=== PATIENT | female | born 2000 | race Caucasian/White ===

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

== ENCOUNTER 2022-02-09 19:55 | Emergency (ER) | payer BC, MEDICAID, SELFPAY ==
[2022-02-09 20:01] VITALS: BP 125/72; PULSE 100; RESP 14; TEMP 37; O2SAT 98; BMI 35.9
--- NOTE | 2022-02-09 20:20 | USR_ITS ---
PROCEDURE INFORMATION: Exam: US Pelvis, Transvaginal Exam date and time: 02/09/2022 9:16 PM Age: 21 years old Clinical indication: Menstruation abnormalities; Excessive menstruation; With irregular cycle; Additional info: Possible miscarriage TECHNIQUE: Imaging protocol: Real-time transvaginal pelvic ultrasound with image documentation. Transvaginal imaging was used for better evaluation of the endometrium, adnexa, and/or cervix. COMPARISON: CT abdomen pelvis w con* [id number] 08/08/2020 2:11 AM FINDINGS: Uterus: Uterus is normal. Endometrial stripe is normal measuring 2.9 mm. Right ovary/adnexa: Several subcentimeter right ovarian follicles. Normal ovarian blood flow. Left ovary/adnexa: Several left ovarian follicular cysts measuring up to 10 mm. Normal ovarian blood flow. Intraperitoneal space: Minimal free fluid in the pelvis, nonspecific. US/US pelvic with transvaginal IMPRESSION: 1. Bilateral ovarian follicles. 2. Minimal free fluid in the pelvis, nonspecific.
[2022-02-09 21:18] LABS: Basophils % 0.3 %; Eosinophils # 0.2 10^3/uL (0.0-0.8); Eosinophils % 1.3 %; Hematocrit 35.5 % (37.0-47.0); Hemoglobin 10.8 g/dL (11.5-15.3); Lymphocytes # 3.5 10^3/uL (1.5-6.5); Lymphocytes % 24.8 %; Mean Corpuscular HGB Conc 30.4 g/dL (30.0-36.0); Mean Corpuscular Hemoglobin 19.4 pg (28.0-34.0); Mean Corpuscular Volume 63.8 fl (81-99); Monocytes # 0.7 10^3/uL (0.2-0.9); Monocytes % 5.1 %; Neutrophils # 9.52 10^3/uL (1.8-8.0); Neutrophils % 67.8 %; Nucleated Red Blood Cells % 0 %; Platelet Count 211 10^3/cmm (130-400); Red Blood Count 5.56 10^6/uL (4.1-5.3); Red Cell Distribution Width 17.2 % (12.1-15.1); White Blood Count 14.1 10^3/uL (4.5-13.0)
[2022-02-09 21:44] LABS: Mean Platelet Volume 11.3 fL (7.4-10.4); Slide Review Slide Review Perform
[2022-02-09 21:45] LABS: HCG, Serum Qual Negative (Negative)
[2022-02-09 21:51] LABS: Alanine Aminotransferase 30 U/L (0-33); Albumin Level 4.6 g/dL (3.5-5.2); Alkaline Phosphatase 127 IU/L (35-105); Aspartate Amino Transferase 24 U/L (0-32); Blood Urea Nitrogen 13 mg/dL (6-20); Calcium 9.7 mg/dL (8.5-10.5); Carbon Dioxide 24 mmol/L (22-29); Chloride 102 mmol/L (98-107); Creatinine Clr Calc Pharmacy 150.3543; Globulin 3.2 g/dL (1.3-4.6); Glomerular Filtration Rate 128.8 mL/min (90-130); Glucose 95 mg/dL (65-115); Lipase 31 U/L (13-60); Osmolality Calculated 284 mOsm/kg (285-295); Sodium 137 mmol/L (136-145); Total Bilirubin 0.4 mg/dL (0.15-1.2); Total Protein 7.8 g/dL (6.6-8.7)
--- NOTE | 2022-02-09 23:02 | W.ED.FEMALGU ---
HPI - Female Genitourinary General: Chief complaint: Vaginal Bleeding Stated complaint: Possible Miscarriage Time Seen by Provider: 02/09/22 23:02 History of Present Illness: Mr Khan is a 21-year-old female who presents to the emergency department due to abnormal uterine bleeding, passing clots associated with concern of , and abdominal discomfort. She endorses symptom onset a few days ago starting with approximately normal period amount of bleeding but more intense abdominal discomfort than typical. What brought her to the ER today is bright red blood clot that she passed earlier today. This is not typical of her previous periods. Her last menstrual period November has had multiple negative home test. Typically her periods are regular and she has not had irregular periods like this in the past. Lower abdominal discomfort is cramping in quality and variable in intensity but currently mild to moderate. She denies associated lightheadedness, dizziness, chest pain, shortness of breath. No history of bleeding disorders or clotting disorders. She reports that she had a pelvic exam and found to have yeast infection and [facility] in [place] approximately 1 week ago, treated with resolution of symptoms, no vaginal pain or discharge associated with current symptoms. Onset (ago): day(s) Location of symptoms: LLQ, RLQ and low back Severity: moderate Quality of pain: cramping Consistency: intermittent Vaginal discharge: none Vaginal bleeding: moderate and clots Sexual activity: Yes Possible : unsure if Review of Systems General: Reports: 10 or more systems reviewed and unremarkable except in HPI and below PFSH ED PFSH: Medical History ADHD (attention deficit hyperactivity disorder) Asthma GERD (gastroesophageal reflux disease) Psychiatric care Surgical History Hx of tonsillectomy Status post laparoscopic cholecystectomy (03/15/20) Family History Family/Other Diabetes Great Grandmother Grandmother Thyroid disease Maternal and Paternal Denies family history of Colon cancer Ovarian cancer Heart disease Hypercholesteremia Breast cancer Bleeding disorder Hypertension Uterine cancer Stroke Social History Smoking and tobacco status: current every day smoker e-cigarettes E-Cigarette Details: vaporizer device and with nicotine E-cig/vape details: One pod/ 1 - 2 months Quit status (tobacco): has tried quititng Number of times tried to quit tobacco: 1 Second hand smoke exposure: Yes Additional social history: .- Tobacco use: currently smokes 3 cigarettes per day Alcohol use: socially Drug use: Marijuana-- last smoked 08/2020 Physical Exam Const: COMMON NORMALS: alert GENERAL APPEARANCE: cooperative and well developed HENMT: COMMON NORMALS: normocephalic and atraumatic HEAD & SCALP: normocephalic and atraumatic Eye: COMMON NORMALS: conjunctivae normal CONJUNCTIVA: Yes conjunctivae normal SCLERA: sclerae normal Neck/C-Spine: COMMON NORMALS: supple GENERAL: Yes trachea midline Resp: COMMON NORMALS: clear to auscultation bilaterally EFFORT & INSPECTION: Yes able to speak in complete sentences AUSCULTATION: clear to auscultation bilaterally Cardio: COMMON NORMALS: regular rate and regular rhythm RATE: regular rate RHYTHM: regular rhythm GI: COMMON NORMALS: Soft to palpation PALPATION: Yes Soft to palpation, Yes Tenderness to palpation present (GI) Details: LLQ and RLQ, No Guarding due to palpation present (GI) and No Rigid due to palpation PERCUSSION: normal to percussion Extremity: GENERAL: Yes normal exam except as noted and No edema Neuro: COMMON NORMALS: moves all extremities SENSORIUM/ORIENTATION: Yes alert and No Orientation impaired Psych: COMMON NORMALS: mental status grossly normal and Normal thought process present THOUGHT PROCESS: Normal thought process present Course ED course: - Patient was seen and evaluated by me at bedside - Patient placed on cardiac monitors, IV access obtained - Initial evaluation notable for exam as above, mildly anxious - Labs personally interpreted by me - Toradol and Tylenol ordered for symptom - Labs notable for leukocytosis, microcytic anemia. No acute electrolyte derangement. Urinalysis with blood likely contamination without other evidence of urinary tract infection. hCG negative. - Imaging notable for bilateral ovarian follicles and nonspecific minimal free fluid in pelvis - Upon serial reexamination after treatment the patient was similar - Based on patient history, evaluation, and testing as interpreted the most likely cause of the patient's condition is dysfunctional uterine bleeding of uncertain etiology. - The etiology of the patient's leukocytosis and abdominal discomfort is less clear. I did offer CT scan and pelvic exam which the patient declined. She expressed desire to leave as she has to take her niece, who is with her, home. - The results of ED evaluation were discussed with the patient including prescriptions and/or symptomatic cares (if applicable) including appropriate and responsible use, followup plan, and return precautions. The patient verbalized understanding and felt safe for discharge. - Patient discharged in satisfactory condition. Note: Click bubbles or prepopulated downs in note writing are used for assistance with data collection and billing and are inherently more limited than narrative and other text portions of this note. Please use narrative for additional clinical history and defer to narrative/free test for any case of contradictory information. If information appears in only free text or click bubble it should be considered present or absent as reported. Please contact note senior technical writer for clarifications of clinical information or contradictory information. MDM is a brief summary, contradictory or erroneous seeming information should be clarified and full note should be reviewed. Vital Signs: Vital signs: Vital Signs Temperature 98.6 F 02/09/22 20:01 Pulse Rate 82 02/10/22 00:00 Respiratory Rate 17 02/10/22 00:00 Blood Pressure 140/75 02/10/22 00:00 Pulse Oximetry 95 02/10/22 00:00 MDM - Female Medical Decision Making 21-year-old female presenting with abnormal uterine bleeding with concern for . Negative test here. Ultrasound without acute abnormality to explain dysfunctional uterine bleeding. Offered pelvic exam and CT scan which the patient declined. Satisfactory for outpatient management. Medical Records I reviewed the patient's medical records. Lab Data I reviewed the patient's lab results. : 02/09/22 21:08 02/09/22 21:08 Radiology Impressions Pelvic/Transvag US 02/09/22 20:20 IMPRESSION: 1. Bilateral ovarian follicles. 2. Minimal free fluid in the pelvis, nonspecific. Laboratory Results WBC 14.1 10^3/uL (4.5-13.0) H 02/09/22 21:08 RBC 5.56 10^6/uL (4.1-5.3) H 02/09/22 21:08 Hgb 10.8 g/dL (11.5-15.3) L 02/09/22 21:08 Hct 35.5 % (37.0-47.0) L 02/09/22 21:08 MCV 63.8 fl (81-99) L 02/09/22 21:08 MCH 19.4 pg (28.0-34.0) L 02/09/22 21:08 MCHC 30.4 g/dL (30.0-36.0) 02/09/22 21:08 RDW 17.2 % (12.1-15.1) H 02/09/22 21:08 Plt Count 211 10^3/cmm (130-400) 02/09/22 21:08 MPV 11.3 fL (7.4-10.4) H 02/09/22 21:08 Neut % (Auto) 67.8 % 02/09/22 21:08 Lymph % (Auto) 24.8 % 02/09/22 21:08 [place] % (Auto) 5.1 % 02/09/22 21:08 Eos % (Auto) 1.3 % 02/09/22 21:08 Baso % (Auto) 0.3 % 02/09/22 21:08 Neut # (Auto) 9.52 10^3/uL (1.8-8.0) H 02/09/22 21:08 Lymph # (Auto) 3.5 10^3/uL (1.5-6.5) 02/09/22 21:08 [place] # (Auto) 0.7 10^3/uL (0.2-0.9) 02/09/22 21:08 Eos # (Auto) 0.2 10^3/uL (0.0-0.8) 02/09/22 21:08 Baso # (Auto) 0.0 10^3/uL (0.0-0.1) 02/09/22 21:08 Nucleated RBC % (auto) 0 % 02/09/22 21:08 Nucleated RBCs # 0.0 /100WBC 02/09/22 21:08 Sodium 137 mmol/L (136-145) 02/09/22 21:08 Potassium 4.0 mmol/L (3.5-5.1) 02/09/22 21:08 Chloride 102 mmol/L (98-107) 02/09/22 21:08 Carbon Dioxide 24 mmol/L (22-29) 02/09/22 21:08 Anion Gap 15.0 (5-19) 02/09/22 21:08 BUN 13 mg/dL (6-20) 02/09/22 21:08 Creatinine 0.6 mg/dL (0.5-0.9) 02/09/22 21:08 GFR Calculation 128.8 mL/min (90-130) 02/09/22 21:08 Glucose 95 mg/dL (65-115) 02/09/22 21:08 Calculated Osmolality 284 mOsm/kg (285-295) L 02/09/22 21:08 Calcium 9.7 mg/dL (8.5-10.5) 02/09/22 21:08 Total Bilirubin 0.4 mg/dL (0.15-1.2) 02/09/22 21:08 AST 24 U/L (0-32) 02/09/22 21:08 ALT 30 U/L (0-33) 02/09/22 21:08 Alkaline Phosphatase 127 IU/L (35-105) H 02/09/22 21:08 Total Protein 7.8 g/dL (6.6-8.7) 02/09/22 21:08 Albumin 4.6 g/dL (3.5-5.2) 02/09/22 21:08 Globulin 3.2 g/dL (1.3-4.6) 02/09/22 21:08 Lipase 31 U/L (13-60) 02/09/22 21:08 HCG, Qual Negative (Negative) 02/09/22 21:08 Urine Color Yellow (Yellow) 02/09/22 23:24 Urine Appearance Hazy (CLEAR) A 02/09/22 23:24 Urine pH 8 (5-7) H 02/09/22 23:24 Ur Specific [place] 1.005 (1.005-1.030) 02/09/22 23:24 Urine Protein Neg (Negative) 02/09/22 23:24 Urine Glucose (UA) Norm (Normal) 02/09/22 23:24 Urine Ketones Negative (Negative) 02/09/22 23:24 Urine Blood 3+ (Negative) H 02/09/22 23:24 Urine Nitrate Negative (Negative) 02/09/22 23:24 Urine Bilirubin Neg (Negative) 02/09/22 23:24 Prot Sulfosalicylic Acd Negative (Negative) 02/09/22 23:24 Urine Urobilinogen Norm mg/dL (Negative) 02/09/22 23:24 Ur Leukocyte Esterase Negative (Negative) 02/09/22 23:24 Urine RBC 5-10 /hpf (0-2) H 02/09/22 23:24 Urine WBC 5-10 /hpf (0-5) H 02/09/22 23:24 Ur Squamous Epith Cells 0-4 /hpf (0-5) H 02/09/22 23:24 Amorphous Sediment 3+ /hpf 02/09/22 23:24 Urine Bacteria Trace /hpf (NONE) 02/09/22 23:24 Discharge Plan Discharge Patient Disposition: Home Clinical Impression: Dysfunctional uterine bleeding, Microcytic anemia, Leukocytosis Condition: Stable Prescriptions: No Action albuterol sulfate 90 mcg/actuation HFA aerosol inhaler 2 puff INHALATION Q6H PRN (Reason: Shortness Of Breath) 0RF duloxetine 60 mg capsule,delayed release(DR/EC) 60 mg PO DAILY Qty: 30 2RF trazodone 50 mg tablet 100 mg PO .HS PRN (Reason: insomnia) Qty: 60 1RF Discharge Orders: Discharge ED (Routine); Ordered 02/10/22 Ordered By: Kailash Pinto Discharge Diet: Usual diet Discharge Activity: Resume usual activity Patient Instructions: Abnormal (Dysfunctional) Uterine Bleeding (ED), Leukocytosis (ED), Anemia (ED) Activity Restrictions/Additional Instructions: Thank you for visiting the emergency department. You were seen and evaluated for abnormal vaginal bleeding. The exact cause of your symptoms is unclear. Your test was negative. You do have microcytic anemia which is most often caused by iron deficiency however this appears similar to prior lab values. Additionally you have a elevated white blood cell count of uncertain cause. You declined CT in the emergency department. As such I am unable to rule out other conditions as cause of your abdominal pain. Please follow-up with your primary care provider and have repeat labs done. Please establish with a primary care provider if you do not currently have 1. I will message case management for referral to [facility]. Please return to the emergency department for worsening symptoms or anything else that you are concerned about and feel needs emergency department evaluation. Coding Level of Care Code ED Client Customer Manager for Rachel Shannon
[2022-02-09 23:05] VITALS: BP 143/61; PULSE 83; RESP 16; O2SAT 96
--- NOTE | 2022-02-09 23:10 | PC.NURSE ---
IV started in triage
[2022-02-09 23:15] VITALS: BP 122/66; PULSE 79; RESP 16; O2SAT 96
[2022-02-09 23:30] VITALS: BP 132/62; PULSE 80; RESP 17; O2SAT 96
[2022-02-09] MEDS: acetaminophen 500 mg Tablet 1000 MG PO (23:38)
[2022-02-09] MEDS: ketorolac 30 mg/mL INJ 15 MG IVP (23:40)
[2022-02-09 23:47] LABS: Add Urine Microscopic? YES; Bacteria Urine TRACE /hpf; Bilirubin Urine Neg (Negative); Blood Urine 3+ (Negative); Glucose Urine UA Norm (Normal); Ketones Urine Negative (Negative); Leukocyte Esterase Urine Negative (Negative); Nitrate Urine Negative (Negative); Protein Urine Neg (Negative); Specific Gravity, Urine 1.005 (1.005-1.030); Squamous Epithelial Cell Urine 0-4 /hpf (0-5); Sulfosalicylic Acid Urine Negative (Negative); Urine Appearance Hazy (CLEAR); Urine Color Yellow (Yellow); Urobilinogen Urine Norm (Negative); pH Urine 8 (5-7)
[2022-02-09 23:48] LABS: Add Urine Culture? No; Amorphous Sediment Urine 3+ /hpf
[2022-02-10] VITALS: BP 140/75; PULSE 82; RESP 17; O2SAT 95
--- NOTE | 2022-02-10 13:29 | DCPLANNER ---
Addendum entered by Octavia Shay 02/22/22 09:49: Patient had a follow up appointment scheduled with [facility] - appointment was rescheduled. Addendum entered by Octavia Shay 02/15/22 07:56: Patient has a follow up appointment scheduled for Tuesday February 15, 2022 at 2:[address] Cadena at [facility]. Clinic will call patient with appointment information. Original Note: fitness and wellness manager had message to schedule a follow up appointment for patient with [facility]. fitness and wellness manager sent patients information to the front staff at [facility]. Patients information will be printed and reviewed. Clinic will call patient with appointment information.
== END 2022-02-10 | disposition home or self-care (01) ==
PROVIDERS: Emergency Medicine; Emergency Provider Emergency Medicine
DX: N93.9 Abnormal uterine and vaginal bleeding, unspecified (principal); D50.9 Iron deficiency anemia, unspecified; D72.829 Elevated white blood cell count, unspecified; F17.290 Nicotine dependence, other tobacco product, uncomplicated
CPT/HCPCS: 76830; 76856; 80053; 81001; 83690; 84703; 85025; 96374; 99284; J1885

== ENCOUNTER 2023-05-02 01:49 | Outpatient (CLI) | payer BC, SELFPAY ==
[2023-05-02 01:50] VITALS: BMI 44.1
[2023-05-02 01:57] VITALS: BP 140/63; PULSE 101
[2023-05-02 02:19] LABS: Bacteria Urine 1+ /hpf; Bilirubin Urine Neg (Negative); Blood Urine Neg (Negative); Glucose Urine UA Norm (Normal); Ketones Urine 1+ (Negative); Leukocyte Esterase Urine Trace (Negative); Mucus Urine 2+ /hpf; Nitrate Urine Negative (Negative); Protein Urine Neg (Negative); Specific Gravity, Urine 1.025 (1.005-1.030); Urine Appearance Cloudy (CLEAR); Urine Color Yellow (Yellow); Urobilinogen Urine 1 mg/dL (Negative); WBC Urine 0-4 /hpf (0-5); pH Urine 6 (5-7)
[2023-05-02 02:20] LABS: Add Urine Culture? No; Amorphous Sediment Urine 1+ /hpf
[2023-05-02 02:32] VITALS: BP 140/63; PULSE 101; RESP 17; TEMP 36.4
== END 2023-05-02 02:35 | disposition home or self-care (01) ==
LOC: OPOB 01:49 → OBGYN 01:50
PROVIDERS: Visit Provider Family Medicine
DX: O26.899 Other specified pregnancy related conditions, unspecified trimester (principal); R10.9 Unspecified abdominal pain; Z3A.00 Weeks of gestation of pregnancy not specified
CPT/HCPCS: 59025; 81001; 99211

== ENCOUNTER 2023-05-25 13:35 | Outpatient (CLI) | payer BC, SELFPAY ==
[2023-05-25 13:35] VITALS: BMI 44.7
--- NOTE | 2023-05-25 13:49 | US_ITS ---
WS: [id number] BIOPHYSICAL PROFILE AND LIMITED OB. HISTORY: NST and BPP for GHTN and hyperglycemia COMPARISON: 02/15/2023 Presentation: Vertex. Cervix: Not visualized Placenta: Posterior and fundal. Distal extent is not imaged. Grade: 1 HEART: FHR of 160BPM. measurements: BPD = 8.3 cm = 33w2d; 19th percentile HC = 30.7 cm = 34w2d; not calculated. AC = 30.0 cm = 34w0d; 44th percentile FL = 6.7 cm = 34w2d; 41st percentile GUILLERMO: 14.8 centimeters EFW: 2323g; not calculated. AGA by ultrasound: 34w0d ADALGISA by ultrasound: 07/06/2023 Measurements are internally concordant. Appropriate growth since the first trimester ultrasound. Biophysical profile: Parameters are as follows: Breathin Movement: 2 Tone: 2 Fluid volume: 2 Single vertical pocket of amniotic fluid 4.7 cm. US/US OB BPP wo NST 12981 IMPRESSION: 1. Biophysical profile score: 6/8. No breathing identified. 2. Single intrauterine gestation of 34w0d with an 07/06/2023. Appropriate growt h since the first trimester ultrasound.
[2023-05-25 13:57] VITALS: BP 129/73; PULSE 101
[2023-05-25 14:17] VITALS: BP 126/61; PULSE 104
== END 2023-05-25 16:17 | disposition home or self-care (01) ==
LOC: OPOB 13:44 → OBGYN 05-30 07:36
PROVIDERS: Visit Provider Family Medicine
DX: O13.9 Gestational [pregnancy-induced] hypertension without significant proteinuria, unspecified trimester (principal); O26.899 Other specified pregnancy related conditions, unspecified trimester; R73.9 Hyperglycemia, unspecified; Z3A.34 34 weeks gestation of pregnancy
CPT/HCPCS: 59025; 76819

== ENCOUNTER 2023-05-30 21:45 | Outpatient (CLI) | payer BC, SELFPAY ==
[2023-05-30 22:06] VITALS: RESP 17
[2023-05-30 22:07] VITALS: BMI 44.9
[2023-05-30 22:21] VITALS: BP 122/56; PULSE 100
[2023-05-30 22:37] VITALS: BP 108/78; PULSE 97
== END 2023-05-30 22:43 | disposition home or self-care (01) ==
LOC: OPOB 21:53 → OBGYN 22:00
PROVIDERS: Visit Provider Family Medicine
DX: O16.9 Unspecified maternal hypertension, unspecified trimester (principal); O26.899 Other specified pregnancy related conditions, unspecified trimester; R10.9 Unspecified abdominal pain; Z3A.00 Weeks of gestation of pregnancy not specified
CPT/HCPCS: 59025; 99211

== ENCOUNTER 2023-06-01 11:10 | Outpatient (CLI) | payer BC, SELFPAY ==
[2023-06-01 11:19] VITALS: BP 122/72; PULSE 110
--- NOTE | 2023-06-01 11:22 | US_ITS ---
WS: [id number] BIOPHYSICAL PROFILE AMNIOTIC FLUID HISTORY: GHTN COMPARISON: None available. position: Vertex. Cardiac activity: 157 bpm. Cervix: closed. Placenta: Posterior, no previa or abruption. Placenta grade: 1 Parameters are as follows: Breathin Movement: 2 Tone: 2 Fluid volume: 2 Amniotic Fluid Index: 12.8 cm; single deep vertical pocket 4.6 cm. US/US OB BPP wo NST 75818 IMPRESSION: 1. Biophysical profile score: 8/8. 2. Normal amniotic fluid.
[2023-06-01 11:24] VITALS: BMI 44.9
== END 2023-06-01 12:35 | disposition home or self-care (01) ==
LOC: OPOB 11:11 → OBGYN 11:12
PROVIDERS: Visit Provider Family Medicine
DX: O24.419 Gestational diabetes mellitus in pregnancy, unspecified control (principal); Z3A.00 Weeks of gestation of pregnancy not specified
CPT/HCPCS: 59025; 76819

== ENCOUNTER 2023-06-03 19:30 | Outpatient (CLI) | payer BC, SELFPAY ==
[2023-06-03] VITALS (34 sets, daily range): BP systolic 109–149; BP diastolic 53–86; PULSE 93–117; RESP 16; TEMP 35.9; O2SAT 96–99; BMI 45.3
[2023-06-03 20:05] LABS: Nitrazine Paper, PH Negative
[2023-06-03 20:39] LABS: Basophils % 0.2 %; Eosinophils # 0.1 10^3/uL (0.0-0.8); Eosinophils % 0.8 %; Hematocrit 29.3 % (37.0-47.0); Hemoglobin 8.9 g/dL (11.5-15.3); Lymphocytes # 3.2 10^3/uL (1.5-6.5); Lymphocytes % 20.2 %; Mean Corpuscular HGB Conc 30.4 g/dL (30.0-36.0); Mean Corpuscular Hemoglobin 19.3 pg (28.0-34.0); Mean Corpuscular Volume 63.7 fl (81-99); Mean Platelet Volume 11.5 fL (7.4-10.4); Monocytes # 1.2 10^3/uL (0.2-0.9); Monocytes % 7.4 %; Neutrophils # 11.17 10^3/uL (1.8-8.0); Neutrophils % 70.1 %; Nucleated Red Blood Cells % 0.1 %; Platelet Count 305 10^3/cmm (130-400); Red Cell Distribution Width 16.7 % (12.1-15.1); White Blood Count 15.9 10^3/uL (4.5-13.0)
[2023-06-03] MEDS: acetaminophen 500 mg Tablet 1000 MG PO (20:43)
[2023-06-03 20:48] LABS: Add Urine Microscopic? YES; Bilirubin Urine Neg (Negative); Blood Urine Neg (Negative); Glucose Urine UA Norm (Normal); Ketones Urine 1+ (Negative); Leukocyte Esterase Urine 1+ (Negative); Nitrate Urine Negative (Negative); Protein Urine Trace (Negative); Specific Gravity, Urine 1.025 (1.005-1.030); Urine Appearance Hazy (CLEAR); Urine Color Yellow (Yellow); Urobilinogen Urine 1 mg/dL (Negative); pH Urine 6 (5-7)
[2023-06-03 20:49] LABS: RBC Urine 0-4 /hpf (0-2)
[2023-06-03 20:52] LABS: Bacteria Urine 2+ /hpf; Mucus Urine TRACE /hpf
[2023-06-03 20:53] LABS: Add Urine Culture? No; Hyaline Casts Urine 0-4 /lpf
[2023-06-03 21:02] LABS: Urine Creatinine 179 mg/dL (28-217); Urine Protein Random 17 mg/dL
[2023-06-03 21:06] LABS: UPRO/UCREAT Ratio 0.09 mg/mg CR
[2023-06-03 21:07] LABS: Alanine Aminotransferase 10 U/L (0-33); Albumin Level 3.1 g/dL (3.5-5.2); Alkaline Phosphatase 212 U/L (35-105); Aspartate Amino Transferase 15 U/L (0-32); Blood Urea Nitrogen 7 mg/dL (6-20); Calcium 9.1 mg/dL (8.5-10.5); Carbon Dioxide 22 mmol/L (22-29); Chloride 103 mmol/L (98-107); Globulin 2.9 g/dL (1.3-4.6); Glomerular Filtration Rate 203.5 mL/min (90-130); Glucose 89 mg/dL (65-115); Osmolality Calculated 279 mOsm/kg (285-295); Sodium 136 mmol/L (136-145); Total Bilirubin 0.2 mg/dL (0.15-1.2); Uric Acid 2.6 mg/dL (2.4-5.7)
[2023-06-04 09:25] LABS: Glucose Point of Care 92 mg/dL (70-110)
== END 2023-06-03 22:02 | disposition home or self-care (01) ==
LOC: OPOB 19:31 → OBGYN 19:32
PROVIDERS: Visit Provider Family Medicine
DX: O47.9 False labor, unspecified (principal); Z3A.00 Weeks of gestation of pregnancy not specified; O26.899 Other specified pregnancy related conditions, unspecified trimester; N89.8 Other specified noninflammatory disorders of vagina
CPT/HCPCS: 36415; 36416; 59025; 80053; 81001; 82570; 82962; 83986; 84156; 84550; 85025; 99211

== ENCOUNTER 2023-06-08 09:27 | Outpatient (CLI) | payer BC, SELFPAY ==
[2023-06-08 09:25] VITALS: BMI 45.5
[2023-06-08 09:32] VITALS: BP 135/70; PULSE 125
--- NOTE | 2023-06-08 09:34 | US_ITS ---
WS: [id number] BIOPHYSICAL PROFILE AND LIMITED OB. HISTORY: Gestational diabetes and hypertension. COMPARISON: 02/15/2023, 06/01/2023 Presentation: Vertex. Cervix: Not visualized. Placenta: Posterior, no previa or abruption. Grade: 1 HEART: Heart rate was not obtained measurements: BPD = 8.5 cm = 34w0d; 8th percentile HC = 32.4 cm = 36w5d; 30th percentile AC = 32.7 cm = 36w4d; 81st percentile FL = 6.6 cm = 34w1d; 5th percentile GUILLERMO: 19.4cm EFW: 2747g; 53rd percentile AGA by ultrasound: 35w3d ADALGISA by ultrasound: 07/10/2023 BPD is at the 8th percentile for gestational age. Head circumference is normal. The 8th percentile ma y be secondary to difficulty obtaining an accurate BPD due to late gestation. Biophysical profile: Parameters are as follows: Breathin Movement: 2 Tone: 2 Fluid volume: 2 IMPRESSION: 1. Biophysical profile score: 8/8. 2. Single intrauterine gestation of 35w3d with an EDC of 07/10/2023. Appropriate growth since study ul trasound of 02/15/2023. 3. No heart rate was obtained by the sheet rock finisher during this examination.
== END 2023-06-08 10:40 | disposition home or self-care (01) ==
LOC: OPOB 09:28 → OBGYN 09:28
PROVIDERS: Visit Provider Family Medicine
DX: O24.419 Gestational diabetes mellitus in pregnancy, unspecified control (principal); O13.9 Gestational [pregnancy-induced] hypertension without significant proteinuria, unspecified trimester; Z3A.35 35 weeks gestation of pregnancy
CPT/HCPCS: 59025; 76819; 99211

== ENCOUNTER 2023-06-09 22:46 | Outpatient (CLI) | payer BC, SELFPAY ==
[2023-06-09 22:52] VITALS: TEMP 36.9
[2023-06-09 22:58] VITALS: BP 130/64; PULSE 101
[2023-06-09 23:12] VITALS: BMI 45.9
[2023-06-09 23:13] VITALS: BP 128/61; PULSE 96
[2023-06-09 23:22] VITALS: RESP 16
[2023-06-09 23:29] VITALS: BP 121/59; PULSE 98
[2023-06-09 23:34] LABS: Bilirubin Urine Neg (Negative); Blood Urine Neg (Negative); Glucose Urine UA Norm (Normal); Ketones Urine Negative (Negative); Leukocyte Esterase Urine 1+ (Negative); Nitrate Urine Negative (Negative); Protein Urine Neg (Negative); Specific Gravity, Urine 1.015 (1.005-1.030); Urine Appearance Hazy (CLEAR); Urine Color Yellow (Yellow); Urobilinogen Urine Norm (Negative); pH Urine 7 (5-7)
[2023-06-09 23:40] LABS: RBC Urine RARE /hpf (0-2); WBC Urine 0-4 /hpf (0-5)
[2023-06-09 23:41] LABS: Add Urine Culture? No; Bacteria Urine 1+ /hpf; Mucus Urine TRACE /hpf
[2023-06-09 23:43] VITALS: BP 126/63; PULSE 100
[2023-06-09 23:43] LABS: Actim Prom Negative
== END 2023-06-09 23:59 | disposition home or self-care (01) ==
LOC: OPOB 22:47 → OBGYN 22:48
PROVIDERS: Visit Provider Family Medicine
DX: O47.9 False labor, unspecified (principal); O26.899 Other specified pregnancy related conditions, unspecified trimester; N89.8 Other specified noninflammatory disorders of vagina; Z3A.00 Weeks of gestation of pregnancy not specified
CPT/HCPCS: 59025; 81001; 83986; 84112; 99211

== ENCOUNTER 2023-06-10 18:36 | Outpatient (CLI) | payer BC, SELFPAY ==
[2023-06-10] VITALS (11 sets, daily range): BP systolic 133–151; BP diastolic 60–70; PULSE 104–129; RESP 16; TEMP 36.9; O2SAT 98–100; BMI 45.5
== END 2023-06-10 19:42 | disposition home or self-care (01) ==
LOC: OPOB 18:45 → OBGYN 18:46
PROVIDERS: Visit Provider Family Medicine
DX: O26.899 Other specified pregnancy related conditions, unspecified trimester (principal); R50.9 Fever, unspecified; N89.8 Other specified noninflammatory disorders of vagina; Z3A.00 Weeks of gestation of pregnancy not specified
CPT/HCPCS: 59025; 99211

== ENCOUNTER 2023-06-13 22:25 | Outpatient (CLI) | payer BC, SELFPAY ==
[2023-06-13] VITALS (7 sets, daily range): BP systolic 128–145; BP diastolic 60–79; PULSE 93–104; RESP 16; BMI 27.2
[2023-06-13 22:59] LABS: Actim Prom Negative
[2023-06-13 23:14] LABS: Nitrazine Paper, PH Negative
[2023-06-13 23:50] LABS: Bilirubin Urine Neg (Negative); Blood Urine Neg (Negative); Glucose Urine UA Norm (Normal); Ketones Urine 1+ (Negative); Leukocyte Esterase Urine Negative (Negative); Nitrate Urine Negative (Negative); Protein Urine Neg (Negative); Specific Gravity, Urine 1.015 (1.005-1.030); Urine Appearance Clear (CLEAR); Urine Color Light yellow (Yellow); Urobilinogen Urine Neg (Negative); pH Urine 5 (5-7)
[2023-06-13 23:51] LABS: Add Urine Culture? No; Bacteria Urine TRACE /hpf; WBC Urine 0-4 /hpf (0-5)
[2023-06-14 00:06] VITALS: BP 127/66; PULSE 105
[2023-06-14 00:23] VITALS: BP 131/58; PULSE 96
[2023-06-14 00:35] VITALS: BP 134/71; PULSE 108
[2023-06-14 00:51] VITALS: BP 124/64; PULSE 99
--- NOTE | 2023-06-14 01:13 | PC.NURSE ---
When patient educated on signs of labor and when to return to L&D, discharge instructions, patient stated I already know all of that! I come here all the time! nurse continued to educate patient, Patient signed discharge papers.
== END 2023-06-14 01:10 | disposition home or self-care (01) ==
LOC: OPOB 22:26 → OBGYN 22:31
PROVIDERS: Visit Provider Family Medicine
DX: O26.899 Other specified pregnancy related conditions, unspecified trimester (principal); R10.9 Unspecified abdominal pain; N89.8 Other specified noninflammatory disorders of vagina; Z3A.00 Weeks of gestation of pregnancy not specified
CPT/HCPCS: 59025; 81001; 83986; 84112; 99211

== ENCOUNTER 2023-06-14 08:41 | Outpatient (CLI) | payer BC, SELFPAY ==
[2023-06-14 08:41] VITALS: RESP 18; BMI 46.0
[2023-06-14 08:52] VITALS: BP 140/76; PULSE 104
[2023-06-14 09:28] VITALS: BP 135/88; PULSE 88
[2023-06-14 09:36] VITALS: BP 135/88; PULSE 88
== END 2023-06-14 09:36 | disposition home or self-care (01) ==
LOC: OPOB 08:45 → OBGYN 08:46
PROVIDERS: Visit Provider Family Medicine
DX: O47.9 False labor, unspecified (principal); Z3A.00 Weeks of gestation of pregnancy not specified
CPT/HCPCS: 59025; 99211

== ENCOUNTER 2023-06-14 21:52 | Outpatient (CLI) | payer BC, SELFPAY ==
[2023-06-14 22:00] VITALS: BMI 46.5
[2023-06-14 22:08] VITALS: BP 116/69; PULSE 101
[2023-06-14 22:23] VITALS: BP 117/54; PULSE 93
[2023-06-14 22:24] VITALS: BP 127/58; PULSE 94
[2023-06-14 22:38] VITALS: BP 122/57; PULSE 96
[2023-06-14 22:54] VITALS: BP 126/61; PULSE 100
[2023-06-14 23:08] VITALS: BP 131/63; PULSE 91
== END 2023-06-14 23:23 | disposition home or self-care (01) ==
LOC: OPOB 21:52 → OBGYN 21:56
PROVIDERS: Visit Provider Family Medicine
DX: O26.899 Other specified pregnancy related conditions, unspecified trimester (principal); Z3A.00 Weeks of gestation of pregnancy not specified; R42 Dizziness and giddiness; R51.9 Headache, unspecified
CPT/HCPCS: 59025; 99211

== ENCOUNTER 2023-06-15 10:27 | Outpatient (CLI) | payer BC, SELFPAY ==
[2023-06-15 10:30] VITALS: BMI 46.3
[2023-06-15 10:43] VITALS: BP 123/64; PULSE 108; RESP 17; TEMP 35.9
--- NOTE | 2023-06-15 10:47 | US_ITS ---
WS: [id number] OB ultrasound for biophysical profile, 06/15/2023 Clinical Data: gestational HTN Comparison: OB ultrasound, 06/08/2023 Findings: There is a single intrauterine in the vertex presentation. The heart rate is 157 beat s per minute. There is a normal amount of amniotic fluid. The cervical length was not seen.. The placenta is posterior.. The biophysical profile is 8 of 8 with normal scores for breathing, movement, posture and tone and amniotic fluid volume. Impression: 1. Single intrauterine in vertex presentation. 2. Biophysical profile 8 of 8. 3. heart rate 157 beats per minute.
[2023-06-15 10:48] VITALS: RESP 17
[2023-06-15 11:04] VITALS: BP 134/63; PULSE 108
[2023-06-15 11:19] VITALS: BP 120/59; PULSE 98
[2023-06-15 11:28] VITALS: BP 120/59; PULSE 98
== END 2023-06-15 11:30 | disposition home or self-care (01) ==
LOC: OPOB 10:32 → OBGYN 10:33
PROVIDERS: Visit Provider Family Medicine
DX: O16.9 Unspecified maternal hypertension, unspecified trimester (principal); Z3A.00 Weeks of gestation of pregnancy not specified
CPT/HCPCS: 59025; 76819; 99211

== ENCOUNTER 2023-06-20 10:19 | Observation (INO) | payer BC, MEDICAID, SELFPAY ==
[2023-06-20] VITALS (35 sets, daily range): BP systolic 119–141; BP diastolic 58–85; PULSE 88–129; RESP 17–18; TEMP 35.9–36.7; BMI 27.3
[2023-06-20] MEDS: miSOPROStol 100 mcg tablet 25 MCG VAGINAL ×3 (10:40→22:08)
[2023-06-20 11:23] LABS: Basophils % 0.2 %; Eosinophils # 0.1 10^3/uL (0.0-0.8); Eosinophils % 0.5 %; Hematocrit 29.9 % (36-47); Lymphocytes # 2.1 10^3/uL (1.5-6.5); Lymphocytes % 17.2 %; Mean Corpuscular HGB Conc 29.8 g/dL (30-55); Mean Corpuscular Hemoglobin 19.1 pg (27-33); Monocytes # 0.8 10^3/uL (0.2-0.9); Monocytes % 6.1 %; Neutrophils % 74.8 %; Nucleated Red Blood Cells % 0.2 %; Platelet Count 264 10^3/cmm (157-399); Red Blood Count 4.67 10^6/uL (3.85-5.65); Red Cell Distribution Width 17.4 % (12.1-15.1); White Blood Count 12.43 10^3/uL (4.5-13.0)
[2023-06-20 11:28] LABS: Amphetamines Screen Urine Negative (Negative); Barbiturates Screen Urine Negative (Negative); Benzodiazepines Screen Urine Negative (Negative); Cocaine Screen Urine Negative (Negative); Opiate Screen Urine Negative (Negative); PCP Screen Urine Negative (Negative); THC Screen Urine Negative (Negative)
--- NOTE | 2023-06-20 11:48 | PM.OBGYHP ---
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 Patient is also borderline gestational diabetic. care has been complicated by elevated blood pressures with some in severe range, however repeat is always been under the superior range. Patient's blood pressure has not been high enough to start medications. Patient also passed her glucose testing, however the patient did have glucose in her urine during visits. Patient has been on a diabetic diet and her blood sugars have been checked routinely throughout . Patient has had a few elevations but overall they have been within goal. Given the fact that the patient continues to have elevated blood pressures and borderline gestational diabetes it was recommended that the patient proceed with early induction. Patient has been getting NSTs and biophysical profiles weekly over the last several weeks and they have all been normal. Patient has not had any persistent contractions although the patient has been seen with occasional contractions. 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: Medical History ADHD (attention deficit hyperactivity disorder) Asthma GERD (gastroesophageal reflux disease) Psychiatric care Surgical History Hx of tonsillectomy Status post laparoscopic cholecystectomy (03/15/20) Family History Family/Other Diabetes Great Grandmother Grandmother Thyroid disease Maternal and Paternal Denies family history of Colon cancer Ovarian cancer Heart disease Hypercholesteremia Breast cancer Bleeding disorder Hypertension Uterine cancer Stroke Social History (Updated 08/25/22 @ 10:23 by Kailash Noordhoek, GLASS SMOOTHER) Smoking and tobacco status: current every day smoker e-cigarettes E-Cigarette Details: vaporizer device and with nicotine E-cig/vape details: One pod/ 1 month Quit status (tobacco): has tried quititng Number of times tried to quit tobacco: 1 Second hand smoke exposure: Yes Smoking risk assessment/counseling performed?: No Alcohol intake: never Desire information about alcohol rehabilitation?: No Counseling given: No Substance/Drug Use: never Desire information about substance/drug rehabilitation?: No Counseling given: No Additional social history: .- Tobacco use: currently smokes 3 cigarettes per day Alcohol use: socially Drug use: Marijuana-- last smoked 08/2020 History History History 0 Term Miscarriages/Ectopic Living Children Vitals/I&O/Wt Last Vital Signs Pulse 111 H 06/20/23 11:02 BP 128/62 06/20/23 11:02 O2 Del Method Room Air 06/20/23 11:02 Weight last 48 hrs Weight 65.771 kg Physical Exam Const: COMMON NORMALS: no acute distress and alert HENMT: COMMON NORMALS: normocephalic and moist oral mucous membranes Resp: COMMON NORMALS: normal respiratory effort and No retractions Cardio: COMMON NORMALS: no JVD, regular rate and regular rhythm GI: OTHER: Gravid Extremity: COMMON NORMALS: no clubbing, cyanosis or edema Neuro: COMMON NORMALS: patient oriented x3, moves all extremities, no focal motor deficits and no sensory deficits noted Psych: COMMON NORMALS: mental status grossly normal, cooperative and normal affect Skin: COMMON NORMALS: no rashes or lesions noted Data 06/20/23 09:55 A&P Assessment and plan (1) Gestational hypertension without significant proteinuria during in third trimester, antepartum: We will proceed with attempted early induction at 38 weeks. We will proceed with Cytotec placement x3. Encouraged the patient to ambulate and do intermittent monitoring. If no significant change is noted after Cytotec placement then we may need to retry next week. Patient has been informed of this plan. (2) Term : (3) Hyperglycemia during : Attestations Medical Necessity Statement*: Admitted for observation but will transition to inpatient if significant contractions or cervical changes noted. Coding Level of Care Code Acute Code for Chg Fwd Diagnoses Gestational hypertension without significant proteinuria during in third trimester, antepartum O13.3 Term Z34.90 Hyperglycemia during O99.810
[2023-06-21] VITALS (41 sets, daily range): BP systolic 97–146; BP diastolic 45–84; PULSE 73–118; TEMP 35.8
[2023-06-21] MEDS: hyDROXYzine 25 mg Capsule PO (00:32)
[2023-06-21] MEDS: oxytocin 30 UNIT/500 ML BAG IV (02:56)
[2023-06-21] MEDS: dextrose 5%-lactated ringers 1,000 ML 125 ML IV ×2 (02:56→11:24)
[2023-06-21 18:10] LABS: Chlamydia Trachomatis RNA TMA NOT DETECTED (NOT DETECTED); Neisseria Gonorrhoeae RNA, TMA NOT DETECTED (NOT DETECTED)
--- NOTE | 2023-06-25 10:34 | P.DS_ITS ---
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 Patient received 3 doses of Cytotec and had only minimal cervical change at that time. Patient was started on Pitocin and was given Pitocin majority of the next 12 hours. Patient had no significant cervical change. The patient did not enter into a consistent contraction pattern to make cervical change. After discussion with patient about lack of initiation of labor it was that they were agreeable with discharge home with retrial next week. History History History 0 Term Miscarriages/Ectopic Living Children Discharge Data Studies Completed and Pending Laboratory Results WBC 12.43 10^3/uL (4.5-13.0) 06/20/23 09:55 RBC 4.67 10^6/uL (3.85-5.65) 06/20/23 09:55 Hgb 8.90 g/dL (12.4-14.8) L 06/20/23 09:55 Hct 29.9 % (36-47) L 06/20/23 09:55 MCV 64.0 fl (85-98) L 06/20/23 09:55 MCH 19.1 pg (27-33) L 06/20/23 09:55 MCHC 29.8 g/dL (30-55) L 06/20/23 09:55 RDW 17.4 % (12.1-15.1) H 06/20/23 09:55 Plt Count 264 10^3/cmm (157-399) 06/20/23 09:55 MPV Not Reportable 06/20/23 09:55 Neut % (Auto) 74.8 % 06/20/23 09:55 Lymph % (Auto) 17.2 % 06/20/23 09:55 [place] % (Auto) 6.1 % 06/20/23 09:55 Eos % (Auto) 0.5 % 06/20/23 09:55 Baso % (Auto) 0.2 % 06/20/23 09:55 Neut # (Auto) 9.30 10^3/uL (1.8-8.0) H 06/20/23 09:55 Lymph # (Auto) 2.1 10^3/uL (1.5-6.5) 06/20/23 09:55 [place] # (Auto) 0.8 10^3/uL (0.2-0.9) 06/20/23 09:55 Eos # (Auto) 0.1 10^3/uL (0.0-0.8) 06/20/23 09:55 Baso # (Auto) 0.0 10^3/uL (0.0-0.1) 06/20/23 09:55 Nucleated RBC % (auto) 0.2 % 06/20/23 09:55 Nucleated RBCs # 0.0 /100WBC 06/20/23 09:55 Urine Opiates Screen Negative ng/mL (Negative) 06/20/23 09:30 Ur Barbiturates Screen Negative ng/mL (Negative) 06/20/23 09:30 Ur Phencyclidine Scrn Negative ng/mL (Negative) 06/20/23 09:30 Ur Amphetamines Screen Negative ng/mL (Negative) 06/20/23 09:30 U Benzodiazepines Scrn Negative ng/mL (Negative) 06/20/23 09:30 Urine Cocaine Screen Negative ng/mL (Negative) 06/20/23 09:30 U Marijuana (THC) Screen Negative ng/mL (Negative) 06/20/23 09:30 C.trachomatis RNA (TMA) Not detected (NOT DETECTED) 06/20/23 09:30 Chlamydia/GC Comment See note 06/20/23 09:30 N.gonorrhoeae RNA (TMA) Not detected (NOT DETECTED) 06/20/23 09:30 Vitals Last Vital Signs Temp 96.4 F L 06/21/23 03:05 Pulse 88 06/21/23 13:20 Resp 18 06/20/23 18:25 BP 120/56 06/21/23 13:20 O2 Del Method Room Air 06/20/23 11:02 Discharge Plan Discharge Patient Disposition: Home Prescriptions: No Action iron 1 tab PO DAILY Discharge Orders: Discharge Order (Routine); Ordered 06/21/23 Ordered By: Michael Champagne Discharge Diet: Regular Discharge Activity: Resume usual activity Patient Instructions: Preeclampsia During (GEN), Early Labor Signs (DC), Hypertension During (GEN), Opioid Safety, OB Undelivered Discharge Activity Restrictions/Additional Instructions: Rest. Drink plenty of fluids. Return to L&D tomorrow 06/22/23 for an NST, ultrasound, and blood pressure check. Return to L&D Sunday06/26/23 @ 6:00AM for induction. 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
== END 2023-06-21 13:20 | disposition home or self-care (01) ==
LOC: OPOB 06-21 06:42 → OBGYN 06-21 06:42
PROVIDERS: Admitting Provider Family Medicine; Visit Provider Family Medicine
DX: O13.3 Gestational [pregnancy-induced] hypertension without significant proteinuria, third trimester (principal); O99.810 Abnormal glucose complicating pregnancy; Z3A.38 38 weeks gestation of pregnancy
CPT/HCPCS: 36415; 59025; 80306; 85025; 87491; 87591; G0378; J2590; J7121

== ENCOUNTER 2023-06-22 10:48 | Outpatient (CLI) | payer BC, MEDICAID, SELFPAY ==
[2023-06-22] VITALS (8 sets, daily range): BP systolic 130–142; BP diastolic 68–91; PULSE 81–105; RESP 17
--- NOTE | 2023-06-22 11:45 | US_ITS ---
WS: [id number] BIOPHYSICAL PROFILE HISTORY: hypertension COMPARISON: 06/15/2023 Presentation: Vertex Cervix: Obscured by the head. Placenta: Posterior, no previa or abruption. Grade: 2 HEART: FHR of 160BPM. profile: Parameters are as follows: Breathin Movement: 2 Tone: 2 Fluid volume: 2 Normal appearing amniotic fluid volume. IMPRESSION: 1. Biophysical profile score: 8/8. 2. Normal amniotic fluid.
== END 2023-06-22 12:32 | disposition home or self-care (01) ==
LOC: OPOB 10:59 → OBGYN 11:01
PROVIDERS: Visit Provider Family Medicine
DX: O16.9 Unspecified maternal hypertension, unspecified trimester (principal); Z3A.00 Weeks of gestation of pregnancy not specified
CPT/HCPCS: 59025; 76819; 99211

== ENCOUNTER 2023-06-22 17:08 | Outpatient (CLI) | payer BC, MEDICAID, SELFPAY ==
[2023-06-22] VITALS (20 sets, daily range): BP systolic 120–184; BP diastolic 63–111; PULSE 88–121; RESP 16–18; TEMP 36.6–36.7; O2SAT 98–99
[2023-06-22] MEDS: ondansetron 4 MG Tablet PO (18:25)
[2023-06-22 18:46] LABS: Urine Color Yellow (Yellow)
[2023-06-22 18:47] LABS: Add Urine Microscopic? YES; Bilirubin Urine Neg (Negative); Blood Urine Neg (Negative); Glucose Urine UA Norm (Normal); Ketones Urine 1+ (Negative); Leukocyte Esterase Urine Negative (Negative); Nitrate Urine Negative (Negative); Protein Urine 1+ (Negative); RBC Urine 0-4 /hpf (0-2); Squamous Epithelial Cell Urine 0-4 /hpf (0-5); Urine Appearance Cloudy (CLEAR); Urobilinogen Urine 1 mg/dL (Negative); WBC Urine 0-4 /hpf (0-5); pH Urine 5 (5-7)
[2023-06-22 18:48] LABS: Add Urine Culture? Yes; Amorphous Sediment Urine 2+ /hpf; Bacteria Urine 2+ /hpf; Mucus Urine 4+ /hpf
[2023-06-22 18:59] LABS: Urine Creatinine 247 mg/dL (28-217)
[2023-06-22 19:00] LABS: UPRO/UCREAT Ratio 0.29 mg/mg CR; Urine Protein Random 72 mg/dL
[2023-06-22 19:04] LABS: Alanine Aminotransferase 9 U/L (0-33); Albumin Level 3.1 g/dL (3.5-5.2); Alkaline Phosphatase 259 U/L (35-105); Anion Gap 12.2 (5-19); Aspartate Amino Transferase 16 U/L (0-32); Blood Urea Nitrogen 7 mg/dL (6-20); Calcium 8.9 mg/dL (8.5-10.5); Carbon Dioxide 23 mmol/L (22-29); Chloride 106 mmol/L (98-107); Glomerular Filtration Rate 127.5 mL/min (90-130); Glucose 78 mg/dL (65-115); Osmolality Calculated 281 mOsm/kg (285-295); Potassium 4.2 mmol/L (3.5-5.1); Sodium 137 mmol/L (136-145); Total Bilirubin 0.2 mg/dL (0.15-1.2); Total Protein 6.1 g/dL (6.6-8.7); Uric Acid 3.9 mg/dL (2.4-5.7)
[2023-06-22 19:14] LABS: Basophils % 0.3 %; Eosinophils # 0.1 10^3/uL (0.0-0.8); Eosinophils % 0.6 %; Hematocrit 30.6 % (36-47); Lymphocytes # 2.5 10^3/uL (1.5-6.5); Lymphocytes % 18.8 %; Mean Corpuscular Hemoglobin 19.8 pg (27-33); Mean Corpuscular Volume 63.9 fl (85-98); Monocytes % 7.4 %; Neutrophils # 9.61 10^3/uL (1.8-8.0); Nucleated Red Blood Cells % 0.3 %; Platelet Count 277 10^3/cmm (157-399); Red Blood Count 4.79 10^6/uL (3.85-5.65); Red Cell Distribution Width 17.9 % (12.1-15.1); White Blood Count 13.35 10^3/uL (4.5-13.0)
== END 2023-06-22 19:57 | disposition home or self-care (01) ==
LOC: OPOB 17:08 → OBGYN 17:09
PROVIDERS: Visit Provider Family Medicine
DX: O47.9 False labor, unspecified (principal); Z3A.00 Weeks of gestation of pregnancy not specified
CPT/HCPCS: 36415; 59025; 80053; 81001; 82570; 84156; 84550; 85025; 87086; 99211; Q0162

== ENCOUNTER 2023-06-26 06:09 | Inpatient (IN) | payer BC, MEDICAID, SELFPAY ==
[2023-06-26] VITALS (22 sets, daily range): BP systolic 113–151; BP diastolic 58–120; PULSE 76–106; RESP 15–17; TEMP 36.7–37.6; BMI 40.2
--- NOTE | 2023-06-26 07:26 | PM.OBGYHP ---
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 The patient recently underwent Cytotec induction approximately 1 week ago and did not make significant progression. Patient was discharged from observation to allow more time. Patient states that she has had occasional contractions and has been walking at home. Patient is unchanged from last cervical check. Patient's has been complicated by gestational hypertension and borderline gestational diabetes. Patient blood sugars are doing well on diet control only. Pressure has been borderline and has been slowly increasing. The patient is also having increasing lower extremity edema. 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 PFSH: Medical History ADHD (attention deficit hyperactivity disorder) Asthma GERD (gastroesophageal reflux disease) Psychiatric care Surgical History Hx of tonsillectomy Status post laparoscopic cholecystectomy (03/15/20) Family History Family/Other Diabetes Great Grandmother Grandmother Thyroid disease Maternal and Paternal Denies family history of Colon cancer Ovarian cancer Heart disease Hypercholesteremia Breast cancer Bleeding disorder Hypertension Uterine cancer Stroke Social History (Updated 08/25/22 @ 10:23 by Kailash Benjamin LPN) Smoking and tobacco status: current every day smoker e-cigarettes E-Cigarette Details: vaporizer device and with nicotine E-cig/vape details: One pod/ 1 month Quit status (tobacco): has tried quititng Number of times tried to quit tobacco: 1 Second hand smoke exposure: Yes Smoking risk assessment/counseling performed?: No Alcohol intake: never Desire information about alcohol rehabilitation?: No Counseling given: No Substance/Drug Use: never Desire information about substance/drug rehabilitation?: No Counseling given: No Additional social history: .- Tobacco use: currently smokes 3 cigarettes per day Alcohol use: socially Drug use: Marijuana-- last smoked 08/2020 History History History 0 Term Miscarriages/Ectopic Living Children Vitals/I&O/Wt Last Vital Signs Temp 99.1 F 06/26/23 06:37 Pulse 106 H 06/26/23 06:55 Resp 15 06/26/23 06:10 BP 139/68 06/26/23 06:55 O2 Del Method Room Air 06/26/23 06:08 Weight last 48 hrs Weight 116.573 kg Physical Exam Const: COMMON NORMALS: no acute distress and alert HENMT: COMMON NORMALS: normocephalic and moist oral mucous membranes Resp: COMMON NORMALS: normal respiratory effort and No retractions Cardio: COMMON NORMALS: no JVD, regular rate and regular rhythm GI: OTHER: Gravid Extremity: COMMON NORMALS: no clubbing, cyanosis or edema Neuro: COMMON NORMALS: patient oriented x3, moves all extremities, no focal motor deficits and no sensory deficits noted Psych: COMMON NORMALS: mental status grossly normal, cooperative and normal affect Skin: COMMON NORMALS: no rashes or lesions noted A&P Assessment and plan (1) Gestational hypertension without significant proteinuria during in third trimester, antepartum: We will proceed with another dose of Cytotec today. We will likely start Pitocin after 1 dose and rupture membranes later today. We will attempt to deliver baby today given blood pressure and concerns for preeclampsia without severe features (2) Term : (3) Hyperglycemia during : Attestations Medical Necessity Statement*: Patient admitted for induction of labor. Anticipate at least 1 midnight stay. Coding Level of Care Code Acute Code for Chg Fwd Diagnoses Gestational hypertension without significant proteinuria during in third trimester, antepartum O13.3 Term Z34.90 Hyperglycemia during O99.810
[2023-06-26] MEDS: miSOPROStol 100 mcg tablet 25 MCG VAGINAL (07:31)
[2023-06-26 08:25] LABS: Basophils % 0.2 %; Eosinophils # 0.1 10^3/uL (0.0-0.8); Eosinophils % 0.9 %; Hematocrit 29.3 % (36-47); Lymphocytes # 2.4 10^3/uL (1.5-6.5); Lymphocytes % 18.8 %; Mean Corpuscular HGB Conc 30.4 g/dL (30-55); Mean Corpuscular Hemoglobin 19.2 pg (27-33); Mean Corpuscular Volume 63.3 fl (85-98); Monocytes # 0.9 10^3/uL (0.2-0.9); Monocytes % 7.2 %; Neutrophils # 9.08 10^3/uL (1.8-8.0); Neutrophils % 71.5 %; Nucleated Red Blood Cells % 0.2 %; Platelet Count 273 10^3/cmm (157-399); Red Blood Count 4.63 10^6/uL (3.85-5.65); Red Cell Distribution Width 17.8 % (12.1-15.1); White Blood Count 12.71 10^3/uL (4.5-13.0)
[2023-06-26] MEDS: dextrose 5%-lactated ringers 1,000 ML 125 ML IV ×2 (11:56→19:30)
[2023-06-26] MEDS: oxytocin 30 UNIT/500 ML BAG IV (11:57)
--- NOTE | 2023-06-26 13:10 | PC.NURSE ---
This nurse with at the bedside to assist with a cook's catheter placement at 1233. attempted to place cook's catheter with a ring forcep and speculum in place approximately 8 times. Patient tolerated well. All 8 attempts unsuccessful. End time 1258.
--- NOTE | 2023-06-26 18:56 | PC.NURSE ---
Patient refused ordered IV medication.
[2023-06-27] VITALS (63 sets, daily range): BP systolic 113–151; BP diastolic 52–95; PULSE 75–125; RESP 15–18; TEMP 36.6–36.8; O2SAT 97
[2023-06-27] MEDS: lactated ringers 1,000 ML 999 ML IV ×3 (03:10→23:34)
--- NOTE | 2023-06-27 07:26 | PM.OBGYPN ---
INTERNATIONAL TRAVEL CONSULTANT Subjective Subjective: Interval history: This is a 23-year-old G1, P0 that is here for induction of labor. Patient received 1 dose of Cytotec yesterday and received Pitocin all day yesterday and had good contraction pattern but nothing extremely painful. Patient made no cervical change. Pitocin break was given overnight and it was restarted this morning at 5 AM. Patient at this time would like to proceed with if no significant change happens today. Labor: Station: -3 Amniotic Membrane Status: Intact Monitor Mode: External Contraction Pattern: Absent Vitals/I&O/Wt Last Vital Signs Temp 98.2 F 06/27/23 06:10 Pulse 91 06/27/23 05:28 Resp 18 06/27/23 06:10 BP 134/74 06/27/23 05:28 O2 Del Method Room Air 06/26/23 15:46 06/26/23 06/27/23 06/27/23 22:59 06:59 14:59 Intake Total 1112.717 / 5206.663 6086.084 / 2783.351 Balance 1112.717 / 6153.426 4774.084 / 2783.351 Weight last 48 hrs Weight 116.573 kg Physical Exam Const: COMMON NORMALS: no acute distress, patient oriented x3 and alert HENMT: COMMON NORMALS: normocephalic and moist oral mucous membranes HEAD & SCALP: normocephalic Neck/C-Spine: COMMON NORMALS: no JVD Resp: COMMON NORMALS: normal respiratory effort and No retractions Cardio: COMMON NORMALS: no JVD, regular rate and regular rhythm RATE: regular rate RHYTHM: regular rhythm GI: OTHER: Gravid Extremity: COMMON NORMALS: no clubbing, cyanosis or edema Neuro: COMMON NORMALS: patient oriented x3, moves all extremities, no focal motor deficits and no sensory deficits noted SENSORIUM/ORIENTATION: Yes alert Psych: COMMON NORMALS: mental status grossly normal, cooperative and normal affect Skin: COMMON NORMALS: no rashes or lesions noted GENERAL SKIN EXAM: no rashes or lesions noted Data 06/26/23 08:09 A&P Assessment and plan (1) Gestational hypertension without significant proteinuria during in third trimester, antepartum: We will continue with Pitocin today. Not safe to perform rupture at this time. Likely will try to do so later today. Patient is scheduled for tomorrow if induction fails (2) Term : (3) Hyperglycemia during : Attestations Medical Necessity Statement*: Admitted for induction of labor. Anticipate greater than 2 midnight stay Coding Level of Care Code Acute Code for Chg Fwd Diagnoses Gestational hypertension without significant proteinuria during in third trimester, antepartum O13.3 Term Z34.90 Hyperglycemia during O99.810
[2023-06-27] MEDS: dextrose 5%-lactated ringers 1,000 ML 125 ML IV ×2 (08:58→16:52)
[2023-06-27] MEDS: ondansetron 2 mg/ML SDV 2 mL 4 MG IVP (14:53)
[2023-06-27] MEDS: fentaNYL 50 mcg/mL INJ 2mL IVP (22:25)
--- NOTE | 2023-06-27 23:55 | ANES.PREANE2 ---
Pre-Anesthetic Assessment Height/Weight: Height 1.7 m Weight 116.573 kg Temp Pulse Resp BP Pulse Ox O2 Del Method 98.2 F 110 H 18 141/83 97 Room Air 06/27/23 20:30 06/27/23 23:53 06/27/23 22:25 06/27/23 23:53 06/27/23 23:49 06/26/23 15:46 Preop Diagnosis: Labor pain MICHAEL Was Beta Bela taken within 24 hours: N/A Was Clonidine taken within 24 hours: N/A Social No alcohol and No tobacco Exam alert, oriented x 3, clear to auscultation bilaterally and regular rate & rhythm Airway Submandibular: within normal limits Cervical ROM: within normal limits Mallampati: Class II Dentition: full History/ROS No significant history except as noted and No significant complaints Pulmonary Asthma and Sleep Apnea CV/HEM Hypertension gestational. No meds None reported Hepatic None reported GI Gastroesophageal Reflux Disease Metabolic Diabetes Mellitus and Morbid Obesity [facility] [place] None reported Neuropsych Anxiety Anesthetic Plan ASA status: 3 Anesthesia: Anesthesia Evaluation and Regional (specify below) Other: MICHAEL Risk of > 500 ml blood loss (7ml/kg in children): No Medications/Allergies Home Medications Medication Instructions Recorded Confirmed Last Taken Type 1 tab PO DAILY 06/13/23 06/26/23 06/19/23 History iron 06/20/23 06/19/23 History Allergies Allergy/AdvReac Type Severity Reaction Status Date / Time bupropion [From Wellbutrin] Allergy Intermediate ALGY-Hives Verified 06/13/23 23:13 fluoxetine [From Prozac] Allergy ALGY-Hives Verified 06/13/23 23:13 Current Medications Generic Name Dose Route Start Last Admin Trade Name Freq PRN Reason Stop Dose Admin Fentanyl 25 - 100 mcg 06/27/23 22:12 06/27/23 22:25 Fentanyl 50 Mcg/Ml Inj 2ml IVP 25 mcg Q1H PRN Administration SEVERE PAIN Lactated Ringer's 1,000 mls @ 999 mls/hr 06/26/23 06:10 06/27/23 04:36 Lactated Ringers IV Infused .Q1H1M PRN Infusion Per L&D Rescitation Protocol Dextrose/Lactated Ringer's 1,000 mls @ 125 mls/hr 06/26/23 06:15 06/27/23 16:52 Dextrose 5%-Lactated Ringers IV 125 mls/hr .Q8H HAIRNDER Administration Oxytocin 30 unit in 500 mls @ 1 mls/hr 06/26/23 07:00 06/27/23 19:22 Pitocin IV 20 milliunit/min .Q24H HARINDER 20 mls/hr Titration Protocol 1 MILLIUNIT/MIN Lactated Ringer's 1,000 mls @ 999 mls/hr 06/27/23 22:11 06/27/23 22:33 Lactated Ringers IV 999 mls/hr .Q1H1M PRN Administration See label comments Ondansetron HCl 4 mg 06/26/23 06:10 06/27/23 14:53 Ondansetron 2 Mg/Ml Sdv 2 Ml IVP 4 mg Q4H PRN Administration NAUSEA AND VOMITING PFSH Anesthesia Medical History ADHD (attention deficit hyperactivity disorder) Asthma GERD (gastroesophageal reflux disease) Psychiatric care Surgical History Hx of tonsillectomy Status post laparoscopic cholecystectomy (03/15/20) Family History Family/Other Diabetes Great Grandmother Grandmother Thyroid disease Maternal and Paternal Denies family history of Colon cancer Ovarian cancer Heart disease Hypercholesteremia Breast cancer Bleeding disorder Hypertension Uterine cancer Stroke Social History (Updated 08/25/22 @ 10:23 by Kailash Benjamin LPN) Smoking and tobacco status: current every day smoker e-cigarettes E-Cigarette Details: vaporizer device and with nicotine E-cig/vape details: One pod/ 1 month Quit status (tobacco): has tried quititng Number of times tried to quit tobacco: 1 Second hand smoke exposure: Yes Smoking risk assessment/counseling performed?: No Alcohol intake: never Desire information about alcohol rehabilitation?: No Counseling given: No Substance/Drug Use: never Desire information about substance/drug rehabilitation?: No Counseling given: No Additional social history: .- Tobacco use: currently smokes 3 cigarettes per day Alcohol use: socially Drug use: Marijuana-- last smoked 08/2020 Female Reproductive History : 1 Data Anesthesia 06/26/23 08:09 Short CBC 06/26/23 Range/Units 08:09 WBC 12.71 (4.5-13.0) 10^3/uL Hgb 8.90 L (12.4-14.8) g/dL Hct 29.3 L (36-47) % MCV 63.3 L (85-98) fl Plt Count 273 (157-399) 10^3/cmm Neut % (Auto) 71.5 % Neut # (Auto) 9.08 H (1.8-8.0) 10^3/uL Cardiac Studies: No Data to Display
--- NOTE | 2023-06-27 23:59 | P.ANES_ITS ---
Anesthesia Procedures Procedure/Date: 06/27/23 Epidural: Time Out Performed: Yes Consents Signed: Procedure Consent Consent: requested by attending/covering physician and from patient Lumbar Level: L3-L4 Epidural position: sitting Epidural procedure: sterile prep of area, 1% lidocaine to numb the area, 18 g needle, neg for paresthesia, test d ose given, 1.5% xylocaine 1:200k epi (5cc), 0.2% Ropivacaine bolus ml (4cc and Fentanyl 100mcg), placed PCEA, no systemic response, sterile dressing applied, L.U.D. no apparent complications and 0.2% Ropiavacaine @ mls/hr (10cc/hour) Additional Comments: MERVAT at 9cm. Cath placed 3cm into epidural space. Pt tolerated well
[2023-06-28] VITALS (85 sets, daily range): BP systolic 96–165; BP diastolic 51–100; PULSE 74–121; RESP 15–18; TEMP 36.6–37.8; O2SAT 98
[2023-06-28] MEDS: ROPivacaine syringe 100 MG/50 ML SYRINGE 10 MG EPIDURAL ×3 (00:03→07:04)
[2023-06-28] MEDS: dextrose 5%-lactated ringers 1,000 ML 125 ML IV ×3 (01:55→17:40)
[2023-06-28] MEDS: oxytocin 30 UNIT/500 ML BAG 20 UNIT IV (04:54)
[2023-06-28] MEDS: hyDROXYzine 25 mg Capsule 50 MG PO ×2 (08:17→14:32)
[2023-06-28] MEDS: ROPivacaine syringe 100 MG/50 ML SYRINGE 13 MG EPIDURAL ×6 (09:31→21:34)
--- NOTE | 2023-06-28 09:39 | PM.MISC ---
Miscellaneous Note Purpose of Documentation: Epidural catheter disconnection Note: Called to room for epidural catheter disconnection. Nurse confirmed catheter and tubing system had been intact and in continuity 25 minutes earlier, but upon returning to room, the disconnect had was discovered. Catheter was sterilely cleaned with chloraprep and sterile scissors were used to cut catheter. New sterile epidural hub and filter were attached and then reconnected to pump after giving lidocaine 1.5% w/ 1:200,000 epinephrine 5 ml bolus via epidural for rapid onset comfort. Pump bolus was then initiated with adequate improvement in pain profile.
[2023-06-28] MEDS: benzocaine-menthol 78 gm Canister 1 SPRAY TOPICAL (10:02)
[2023-06-28] MEDS: acetaminophen 325 mg Tablet 650 MG PO (14:32)
[2023-06-28] MEDS: calcium carbonate 500 mg Chew Tablet 1000 MG PO (15:51)
[2023-06-28] MEDS: oxytocin 30 UNIT/500 ML BAG IV (16:52)
[2023-06-29] VITALS (168 sets, daily range): BP systolic 111–177; BP diastolic 62–89; PULSE 76–117; RESP 15–18; TEMP 36.9–37.3; O2SAT 87–100
[2023-06-29] MEDS: hyDROXYzine 25 mg Capsule 50 MG PO (00:37)
[2023-06-29] MEDS: ROPivacaine syringe 100 MG/50 ML SYRINGE 13 MG EPIDURAL ×2 (00:37→02:44)
[2023-06-29] MEDS: dextrose 5%-lactated ringers 1,000 ML 125 ML IV ×2 (01:46→11:10)
[2023-06-29] MEDS: lactated ringers 1,000 ML 999 ML IV (04:25)
[2023-06-29] MEDS: citric acid-sodium citrate 30 mL UDC PO (04:36)
[2023-06-29] MEDS: metoclopramide 5 mg/mL SDV 2 mL 10 MG IVP (04:36)
[2023-06-29] MEDS: famotidine 20 mg/2 mL INJ IVP (04:36)
[2023-06-29] MEDS: ceFAZolin 2,000 MG in sodium chloride 0.9% (plus) 50 ML 100 MG IV (04:36)
--- NOTE | 2023-06-29 04:50 | P.ANESUD_ITS ---
Pre-Anesthetic Update Pre-Anesthetic Assessment: Date of Surgery/Procedure: 06/29/23 Preop Martha gnosis: Labor pain Proposed Procedure: Any changes to Pre-Anesthetic Assessment?: No Changes from Pre-Anesthetic Assessment: decel Last Intake: > 8hrs Vitals: Temperature 99.3 F 06/28/23 23:40 Temperature Source Axillary 06/28/23 23:40 Pulse Rate 89 06/29/23 04:29 Pulse Rhythm Regular 06/26/23 06:08 Pulse Strength 3+ Normal 06/26/23 06:08 Respiratory Rate 16 06/28/23 17:18 Respiratory Effort Spontaneous, Non- Labored 06/27/23 22:25 Respiratory Depth Normal 06/27/23 22:25 Respiratory Patter n Normal 06/27/23 22:25 Blood Pressure 145/84 06/29/23 04:29 Pulse Oximetry 98 06/28/23 00:04 Oxygen Delivery Me thod Room Air 06/28/23 06:00 Exam: Pre-Anes Outpt Exam: alert, oriented x 3, clear to auscultation bilaterally and regular rate & rhythm Cardiac Studies: No Data to Display
--- NOTE | 2023-06-29 06:31 | P.OP_ITS ---
Operative Report Date of procedure: June 29, 2023 Pre-op diagnosis: Gestational hypertension, failure to progress, prolonged rupture membranes. Post-op diagnosis: Same Post-op findings: Viable infant female Procedure done: Primary low transverse Surgeon: Michael Champagne MD Buttonhole Machine Operator: Alfonso Reeves MD Anesthesia: General, Epidural and Spinal Estimated blood loss: 800ml Urine output: Clear Complications: None Findings: Viable female Brief History: This is a 22-year-old G1, P1 that initially presented for induction of labor. After significant amount of time and prolonged rupture of membranes failure to progress was diagnosed. The patient also had a prolonged decel so urgent C- section was initiated Procedure: Patient was taken to the operating room where epidural anesthesia was found to be adequate. She was prepped and draped in the normal sterile fashion in a dorsal supine position with a leftward tilt. Skin incision was made with scalpel and carried out to the underlying layer of fascia which was incised in the midline. Fascial incision was then extended laterally with Miller scissors bilaterally. The superior aspect of the fascial incision was grasped with Santiago clamps elevated and dissected off the rectus muscles with Miller's. The inferior aspect of the fascial incision was grasped with Sima's and in likewise manner was elevated and dissected off with Miller's. Peritoneum was then entered digitally and extended with good visualization of the bladder. Bladder blade wa s then inserted. Uterine incision was then created in a transverse fashion in the lower uterine segment with scalpel and extended digitally. Amniotic sac was ruptured and Clear fluid noted. Infant's head was delivered atraumatically nose and mouth suctioned with bulb, cord clamped and cut and handed off to waiting nursing staff. The placenta was then expressed and uterus exteriorized from the abdomen. And cleared of all clots and debris. Uterine incision was then repaired in a running locked fashion with 0 Vicryl. A second suture of the same was then used to imbricate the incision. Excellent hemostasis was noted. Uterus was then returned to the abdomen, gutters were cleared of all clots and debris and wound was irrigated. l. Fascia was then closed with 0 Vicryl in a running fashion. Subcutaneous tissue was closed with 2-0 Vicryl and skin was closed with 4-0 Monocryl on a Kurtis needle. The incision was reinforced with Steri-Strips and pressure bandage was over the wound. Sponge, laps, and needle count was correct x2. 2 g Ancef was given prior to the procedure. Patient was taken recovery in stable condition.
[2023-06-29] MEDS: prenatal vitamin Capsule 1 CAP PO (07:58)
[2023-06-29] MEDS: ferrous sulfate EC 325 mg Tablet PO ×2 (07:58→18:46)
[2023-06-29] MEDS: HYDROcodone-acetaminophen 5-325 mg Tablet PO ×2 (07:58→18:46)
[2023-06-29] MEDS: docusate sodium 100 mg Capsule PO ×2 (11:11→18:46)
[2023-06-29] MEDS: ketorolac 30 mg/mL INJ IVP (18:46)
[2023-06-29 19:19] LABS: Hematocrit 24.1 % (36-47); Mean Corpuscular HGB Conc 30.3 g/dL (30-55); Mean Corpuscular Hemoglobin 19.1 pg (27-33); Mean Corpuscular Volume 63.1 fl (85-98); Platelet Count 194 10^3/cmm (157-399); Red Blood Count 3.82 10^6/uL (3.85-5.65); Red Cell Distribution Width 17.4 % (12.1-15.1); White Blood Count 20.87 10^3/uL (4.5-13.0)
[2023-06-30] MEDS: ketorolac 30 mg/mL INJ IVP (01:03)
[2023-06-30] MEDS: HYDROcodone-acetaminophen 5-325 mg Tablet PO ×5 (03:38→23:54)
[2023-06-30 03:59] VITALS: BP 125/80; PULSE 89; RESP 16; TEMP 36.7; O2SAT 96
[2023-06-30] MEDS: ibuprofen 800 mg tablet PO ×3 (09:35→20:21)
[2023-06-30] MEDS: docusate sodium 100 mg Capsule PO ×2 (09:35→17:47)
[2023-06-30] MEDS: prenatal vitamin Capsule 1 CAP PO (09:35)
[2023-06-30] MEDS: ferrous sulfate EC 325 mg Tablet PO ×2 (09:35→17:47)
[2023-06-30 10:00] VITALS: BP 140/82; PULSE 82; TEMP 37.1
--- NOTE | 2023-06-30 10:49 | PM.OBGYPN ---
LABORER CONSTRUCTION OR LEAK GANG Subjective Subjective: Interval history: The patient states that she is having some pain this morning but overall doing fairly well. The patient had her catheter removed this morning. Patient had some low saturations yesterday but this has improved. Patient attempted to breast-feed yesterday and was having some difficulty so bottlefeeding had been initiated. Patient states that she is going to retry breast-feeding and pumping today. Labor: Station: -2 Amniotic Membrane Status: Ruptured Monitor Mode: External Contraction Pattern: Absent Status: Category I Post /CS: Patient comments OB post-: incisional pain, tolerating diet and flatus present baby status: doing well and bottle feeding well [place] feeding status: exclusively bottle feeding Vitals/I&O/Wt Last Vital Signs Temp 98.1 F 06/30/23 03:59 Pulse 89 06/30/23 03:59 Resp 16 06/30/23 03:59 BP 125/80 06/30/23 03:59 Pulse Ox 96 06/30/23 03:59 O2 Del Method Room Air 06/30/23 03:59 O2 Flow Rate 2 06/29/23 20:00 06/29/23 06/30/23 06/30/23 22:59 06:59 14:59 Intake Total 500 / 1950 Output Total 350 / 1800 190 / 1990 Balance 150 / 150 -190 / -40 Physical Exam Const: COMMON NORMALS: no acute distress, patient oriented x3 and alert HENMT: COMMON NORMALS: normocephalic and moist oral mucous membranes HEAD & SCALP: normocephalic Neck/C-Spine: COMMON NORMALS: no JVD Resp: COMMON NORMALS: normal respiratory effort and No retractions Cardio: COMMON NORMALS: no JVD, regular rate and regular rhythm RATE: regular rate RHYTHM: regular rhythm GI: COMMON NORMALS: Normal to inspection, nondistended, normoactive bowel sounds present OTHER: Mild tenderness to palpation. Incision appears to be clean dry and intact Extremity: COMMON NORMALS: no clubbing, cyanosis or edema Neuro: COMMON NORMALS: patient oriented x3, moves all extremities, no focal motor deficits and no sensory deficits noted SENSORIUM/ORIENTATION: Yes alert Psych: COMMON NORMALS: mental status grossly normal, cooperative and normal affect Skin: COMMON NORMALS: no rashes or lesions noted GENERAL SKIN EXAM: no rashes or lesions noted Urinary Catheter Management: Cabrales: Cath Placed During This Visit: yes Reason for Continuing Indwelling Catheter: Required Immobilization for Trauma or Surgery or Anesthesia Urinary Catheter Date of Insertion: 06/28/23 Urinary Catheter Time of Insertion: 01:17 Data 06/29/23 18:55 A&P Assessment and plan (1) care following delivery: Continue care. Encouraged the patient to ambulate today. Encouraged breast-feeding and pumping. (2) Gestational hypertension without significant proteinuria during in third trimester, antepartum: Patient's blood pressure is appropriate. Continue monitoring BP at this time. No further intervention Attestations Medical Necessity Statement*: Anticipate discharge tomorrow. Coding Level of Care Code Acute Code for Chg Fwd Diagnoses care following delivery Z39.2 Gestational hypertension without significant proteinuria during in third trimester, antepartum O13.3
[2023-06-30 17:00] VITALS: BP 130/80; PULSE 69; TEMP 36.7
[2023-06-30 23:14] VITALS: BP 137/83; PULSE 92; RESP 16; TEMP 36.9; O2SAT 98
[2023-07-01 04:56] VITALS: BP 116/73; PULSE 77; RESP 16; TEMP 36.7; O2SAT 98
[2023-07-01] MEDS: HYDROcodone-acetaminophen 5-325 mg Tablet PO (05:40)
--- NOTE | 2023-07-01 07:54 | P.DS_ITS ---
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 Hospital Course Hospital Course The patient arrived to be induced and was started on Cytotec. She received 1 dose and then was started on Pitocin. She did not have any significant progression over the next 24 hours. The patient did rupture on alone and continue to make minimal change. Patient admitted to 7 cm dilation before failure to progress was determined. Patient at that time had prolonged rupture of membranes, a prolonged deceleration and failure to progress so was warranted and agreeable for the patient. Patient underwent primary low- transverse without complication. Patient had to be placed under anesthesia as epidural was not adequate. Patient had no complications and care was unremarkable. Patient has been ambulating and urinating without difficulty and pain has been well controlled. Information Peripartum Data: Delivery Method: Physical Exam Const: COMMON NORMALS: no acute distress, patient oriented x3 and alert HENMT: COMMON NORMALS: normocephalic and moist oral mucous membranes HEAD & SCALP: normocephalic Neck/C-Spine: COMMON NORMALS: no JVD Resp: COMMON NORMALS: normal respiratory effort and No retractions Cardio: COMMON NORMALS: no JVD, regular rate and regular rhythm RATE: regular rate RHYTHM: regular rhythm GI: COMMON NORMALS: Normal to inspection, nondistended, normoactive bowel sounds present OTHER: Mild tenderness to palpation. Incision appears to be clean dry and intact Extremity: GENERAL: Yes normal exam except as noted and Yes edema Neuro: COMMON NORMALS: patient oriented x3, moves all extremities, no focal motor deficits and no sensory deficits noted SENSORIUM/ORIENTATION: Yes alert Psych: COMMON NORMALS: mental status grossly normal, cooperative and normal affect Skin: COMMON NORMALS: no rashes or lesions noted GENERAL SKIN EXAM: no rashes or lesions noted Urinary Catheter Management: Cabrales: Cath Placed During This Visit: yes Reason for Continuing Indwelling Catheter: Required Immobilization for Trauma or Surgery or Anesthesia Urinary Catheter Date of Insertion: 06/28/23 Urinary Catheter Time of Insertion: 01:17 History History History 0 Term Miscarriages/Ectopic Living Children Discharge Data Studies Completed and Pending Laboratory Results WBC 20.87 10^3/uL (4.5-13.0) H 06/29/23 18:55 RBC 3.82 10^6/uL (3.85-5.65) L 06/29/23 18:55 Hgb 7.30 g/dL (12.4-14.8) L 06/29/23 18:55 Hct 24.1 % (36-47) L 06/29/23 18:55 MCV 63.1 fl (85-98) L 06/29/23 18:55 MCH 19.1 pg (27-33) L 06/29/23 18:55 MCHC 30.3 g/dL (30-55) 06/29/23 18:55 RDW 17.4 % (12.1-15.1) H 06/29/23 18:55 Plt Count 194 10^3/cmm (157-399) 06/29/23 18:55 MPV 10.0 fL (7.4-10.4) 06/29/23 18:55 Neut % (Auto) 71.5 % 06/26/23 08:09 Lymph % (Auto) 18.8 % 06/26/23 08:09 [place] % (Auto) 7.2 % 06/26/23 08:09 Eos % (Auto) 0.9 % 06/26/23 08:09 Baso % (Auto) 0.2 % 06/26/23 08:09 Neut # (Auto) 9.08 10^3/uL (1.8-8.0) H 06/26/23 08:09 Lymph # (Auto) 2.4 10^3/uL (1.5-6.5) 06/26/23 08:09 [place] # (Auto) 0.9 10^3/uL (0.2-0.9) 06/26/23 08:09 Eos # (Auto) 0.1 10^3/uL (0.0-0.8) 06/26/23 08:09 Baso # (Auto) 0.0 10^3/uL (0.0-0.1) 06/26/23 08:09 Nucleated RBC % (auto) 0.2 % 06/26/23 08:09 Nucleated RBCs # 0.0 /100WBC 06/26/23 08:09 Vitals Last Vital Signs Temp 98.0 F 07/01/23 04:56 Pulse 77 07/01/23 04:56 Resp 16 07/01/23 04:56 BP 116/73 07/01/23 04:56 Pulse Ox 98 07/01/23 04:56 O2 Del Method Room Air 07/01/23 04:56 O2 Flow Rate 2 06/29/23 20:00 Discharge Plan Discharge Patient Disposition: Home Condition: Stable Prescriptions: New hydrocodone-acetaminophen 5-325 mg Tablet 1 tab PO Q4H PRN (Reason: Moderate To Severe Pain) Qty: 20 0RF Continued iron 1 tab PO DAILY Discharge Orders: Discharge Order (Routine); Ordered 07/01/23 Ordered By: Micahel Champagne Referrals: Michael Champagne MD [Physician] - 1 week Discharge Diet: Usual diet Discharge Activity: Limit activity as instructed Patient Instructions: Opioid Safety 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
[2023-07-01 08:51] VITALS: BP 129/74; PULSE 60; RESP 16
--- NOTE | 2023-07-02 08:00 | ANE.PACU2 ---
Inpatient post-anesthesia follow up: Airway intact: Yes Vital signs: Temperature 98.0 F Pulse Rate 60 Respiratory Rate 16 Blood Pressure 129/74 Pulse Oximetry 98 Oxygen Delivery Me thod Room Air Oxygen Flow Rate 2 Fraction of Inspir ed Oxygen Hydration adequate: Yes Nausea and vomiting: No Pain level: 1 Mental status: Baseline
== END 2023-07-01 08:52 | disposition home or self-care (01) | DRG 788 ==
LOC: OPOB 06:09 → OBGYN 06:09
PROVIDERS: Admitting Provider Family Medicine; Visit Provider Family Medicine
PROC: 10D00Z1 Extraction of Products of Conception, Low, Open Approach (ICD-10-PCS; CPT 59514; principal; 2023-06-29 05:00)
DX: O13.4 Gestational [pregnancy-induced] hypertension without significant proteinuria, complicating childbirth (principal); O76 Abnormality in fetal heart rate and rhythm complicating labor and delivery; O66.40 Failed trial of labor, unspecified; Z37.0 Single live birth; Z3A.39 39 weeks gestation of pregnancy
CPT/HCPCS: 36415; 51702; 59025; 59409; 85025; 85027; 94664; 96374; 96376; J0330; J0690; J1100; J1885; J2274; J2371; J2405; J2590; J2704; J2765; J2795; J3010; J3490; J7030; J7120; J7121

== ENCOUNTER 2023-09-24 03:07 | Emergency (ER) | payer BC, MEDICAID, SELFPAY ==
[2023-09-24 03:08] VITALS: BP 138/96; PULSE 87; RESP 18; TEMP 36.6; O2SAT 100; BMI 37.8
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
[2023-09-24 03:19] VITALS: BP 138/96; PULSE 87; RESP 18; TEMP 36.6; O2SAT 100
== END 2023-09-24 03:21 | disposition home or self-care (01) ==
PROVIDERS: Emergency Provider Emergency Medicine; PCP Family Medicine
DX: F41.9 Anxiety disorder, unspecified (principal); F17.290 Nicotine dependence, other tobacco product, uncomplicated
CPT/HCPCS: 99283

== ENCOUNTER 2023-09-30 11:43 | Emergency (ER) | payer BC, MEDICAID, SELFPAY ==
[2023-09-30 11:49] VITALS: BP 123/73; PULSE 84; RESP 16; TEMP 37.1; O2SAT 98; BMI 39.1
--- NOTE | 2023-09-30 12:45 | ED_ITS ---
HPI - Abdominal Pain 2 General: Chief Complaint: Abdominal Pain Stated Complaint: lower abd pain Time Seen by Provider: 09/30/23 12:22 Source: patient Mode of arrival: ambulatory History of Present Illness: 22-year-old female presents emergency ro om complaining of generalized abdominal pain and cramping. No fever sweats chills she has been very nauseous. No vomiting no hematochezia or melena no hematemesis or coffee-ground emesis. She is 3 months from a section. She did have gestational diabetes with her previous surgery. She is also previously had a cholecystectomy. MD elicited complaint: abdominal pain Pertinent past history: none Onset (ago): minute(s) Pain Consistency: intermittent Location: Diffuse Quality: aching Exacerbating factors: nothing Relieving factors: nothing Associated Symptoms: Denies anorexia, belching, bloating, change in bowel habits, change in stool character, chills, coffee ground emesis, constipation, GI cramping, diarrhea, dyspepsia, dysuria, excessive flatus, fever(s), heartburn, hematochezia, hematuria, hematemesis, fecal incontinence, loose stools, melena, nausea, poor appetite, syncope and vomiting Review of Systems 2 Const: Denies: fever(s) or chills Card: Denies: chest pain or syncope Resp: Denies: dyspnea GI: Denies: abdominal pain, nausea, vomiting, hematemesis, coffee ground emesis, heartburn, diarrhea, constipation, bloating, GI cramping, belching, excessive flatus, fecal incontinence, change in bowel habits, change in stool character, hematochezia or melena : Denies: dysuria, urinary frequency, urinary urgency or hematuria Musc: Denies: neck pain or back pain Skin/Breast: Denies: rash PFSH ED 2 PFSH: Medical History Psychiatric care ADHD (attention deficit hyperactivity disorder) Asthma GERD (gastroesophageal reflux disease) Surgical History Status post laparoscopic cholecystectomy (03/15/20) Hx of tonsillectomy Family History Family/Other Diabetes Great Grandmother Grandmother Thyroid disease Maternal and Paternal Denies family history of Colon cancer Ovarian cancer Heart disease Hypercholesteremia Breast cancer Bleeding disorder Hypertension Uterine cancer Stroke Social History Smoking and tobacco/nicotine status: current every day tobacco/nicotine user e- cigarettes E-Cigarette Details: vaporizer device and with nicotine E-cig/vape details: One pod/ 1 month Quit status (tobacco/nicotine): has tried quititng Number of times tried to quit tobacco: 1 Second hand smoke exposure: Yes Alcohol intake: never Substance/Drug Use: never Additional social history: .- Tobacco use: currently smokes 3 cigarettes per day Alcohol use: socially Drug use: Marijuana-- last smoked 08/2020 Physical Exam 2 Const: GENERAL APPEARANCE: cooperative and comfortable O RIENTATION/CONSCIOUSNESS: Yes awake, Yes oriented to person, Yes oriented to place and Yes oriented to time HENMT: COMMON NORMALS: normocephalic, atraumatic and hearing grossly normal bilaterally HEAD & SCALP: normocephalic and atraumatic Resp: COMMON NORMALS: normal respiratory effort, No retractions, No use of accessory muscles and clear to auscultation bilaterally AUSCULTATION: clear to auscultation bilaterally Cardio: COMMON NORMALS: regular rate, regular rhythm and No murmurs present (Cardio) RATE: regular rate RHYTHM: regular rhythm GI: COMMON NORMALS: No hepatosplenomegaly present AUSCULTATION: Yes normoactive bowel sounds PALPATION: Yes Tenderness to palpation present (GI) (Diffuse nonspecific), No Guarding due to palpation present (GI) and Yes No hepatosplenomegaly present Extremity: COMMON NORMALS: normal to inspection, capillary refill normal, no clubbing, cyanosis or edema, no calf tenderness and no pedal edema Neuro: SENSORIUM/ORIENTATION: Yes oriented to person, Yes oriented to place and Yes oriented to time Skin: COMMON NORMALS: no rashes or lesions noted GENERAL SKIN EXAM: no rashes or lesions noted Course 2 Vital Signs: Vital signs: Vital Signs Temperature 98.7 F 09/30/23 11:49 Pulse Rate 79 09/30/23 13:10 Respiratory Rate 16 09/30/23 11:49 Blood Pressure 128/73 09/30/23 13:10 Pulse Oximetry 96 09/30/23 13:10 Oxygen Delivery Me thod Room Air 09/30/23 13:10 MDM - Abdominal Pain Medical Decision Making Labs reviewed. No sign of acute pancreatitis liver functions normal, urine negative. Hemoglobin stable. Urine test negative. Nonacute abdomen on exam. We will discharge patient home start proton pump inhibitor follow-up with primary care. Differential Diagnosis Likely abdominal pain, acute appendicitis, calculus of kidney, diverticulitis and pancreatitis Medical Records I reviewed the patient's medical records. Lab Data I reviewed the patient's lab results. 09/30/23 12:59 12 12:59 Labs/Radiology: Laboratory Results WBC 8.67 10^3/uL (4.5-13.0) 09/30/23 12:59 RBC 5.41 10^6/uL (3.85-5.65) 09/30/23 12:59 Hgb 9.60 g/dL (12.4-14.8) L 09/30/23 12:59 Hct 33.3 % (36-47) L 09/30/23 12:59 MCV 61.6 fl (85-98) L 09/30/23 12:59 MCH 17.7 pg (27-33) L 09/30/23 12:59 MCHC 28.8 g/dL (30-55) L 09/30/23 12:59 RDW 21.4 % (12.1-15.1) H 09/30/23 12:59 Plt Count 263 10^3/cmm (157-399) 09/30/23 12:59 MPV Not Reportable 09/30/23 12:59 Neut % (Auto) 66.4 % 09/30/23 12:59 Lymph % (Auto) 26.6 % 09/30/23 12:59 [place] % (Auto) 5.3 % 09/30/23 12:59 Eos % (Auto) 0.9 % 09/30/23 12:59 Baso % (Auto) 0.5 % 09/30/23 12:59 Neut # (Auto) 5.75 10^3/uL (1.8-8.0) 09/30/23 12:59 Lymph # (Auto) 2.3 10^3/uL (1.5-6.5) 09/30/23 12:59 [place] # (Auto) 0.5 10^3/uL (0.2-0.9) 09/30/23 12:59 Eos # (Auto) 0.1 10^3/uL (0.0-0.8) 09/30/23 12:59 Baso # (Auto) 0.0 10^3/uL (0.0-0.1) 09/30/23 12:59 Nucleated RBC % (auto) 0 % 09/30/23 12:59 Nucleated RBCs # 0.0 /100WBC 09/30/23 12:59 Sodium 140 mmol/L (136-145) 09/30/23 12:59 Potassium 4.0 mmol/L (3.5-5.1) 09/30/23 12:59 Chloride 106 mmol/L (98-107) 09/30/23 12:59 Carbon Dioxide 24 mmol/L (22-29) 09/30/23 12:59 Anion Gap 14.0 (5-19) 09/30/23 12:59 BUN 7 mg/dL (6-20) 09/30/23 12:59 Creatinine 0.6 mg/dL (0.5-0.9) 09/30/23 12:59 GFR Calculation 127.5 mL/min (90-130) 09/30/23 12:59 Glucose 93 mg/dL (65-115) 09/30/23 12:59 Calculated Osmolality 288 mOsm/kg (285-295) 09/30/23 12:59 Calcium 9.7 mg/dL (8.5-10.5) 09/30/23 12:59 Total Bilirubin 0.7 mg/dL (0.15-1.2) 09/30/23 12:59 AST 24 U/L (0-32) 09/30/23 12:59 ALT 43 U/L (0-33) H 09/30/23 12:59 Alkaline Phosphatase 165 U/L (35-105) H 09/30/23 12:59 Total Protein 7.2 g/dL (6.6-8.7) 09/30/23 12:59 Albumin 4.3 g/dL (3.5-5.2) 09/30/23 12:59 Globulin 2.9 g/dL (1.3-4.6) 09/30/23 12:59 Lipase 27 U/L (13-60) 09/30/23 12:59 HCG, Qual Negative (Negative) 09/30/23 12:59 Urine Color Yellow (Yellow) 09/30/23 12:40 Urine Appearance Clear (CLEAR) 09/30/23 12:40 Urine pH 5 (5-7) 09/30/23 12:40 Ur Specific [place] 1.015 (1.005-1.030) 09/30/23 12:40 Urine Protein Trace (Negative) 09/30/23 12:40 Urine Glucose (UA) Norm (Normal) 09/30/23 12:40 Urine Ketones Negative (Negative) 09/30/23 12:40 Urine Blood Neg (Negative) 09/30/23 12:40 Urine Nitrate Negative (Negative) 09/30/23 12:40 Urine Bilirubin Neg (Negative) 09/30/23 12:40 Urine Urobilinogen Norm mg/dL (Negative) 09/30/23 12:40 Ur Leukocyte Esterase Negative (Negative) 09/30/23 12:40 Urine RBC 0-4 /hpf (0-2) H 09/30/23 12:40 Urine WBC 0-4 /hpf (0-5) H 09/30/23 12:40 Ur Squamous Epith Cells 5-10 /hpf (0-5) H 09/30/23 12:40 Amorphous Sediment Not Reportable 09/30/23 12:40 Urine Bacteria 1+ /hpf (NONE) H 09/30/23 12:40 Urine Mucus 3+ /hpf 09/30/23 12:40 No radiology studies performed this visit Discharge Plan Discharge Patient Disposition: Home Clinical Impression: Abdominal pain Condition: Stable Prescriptions: New omeprazole 20 mg capsule,delayed release(DR/EC) 20 mg PO BID Qty: 40 0RF Rx Instructions: 1 p.o. twice daily x10 days then 1 p.o. daily No Action iron hydrocodone-acetaminophen 5-325 mg Tablet 1 tab PO Q4H PRN (Reason: Moderate To Severe Pain) Qty: 20 0RF 1 tab PO DAILY Discharge Orders: Discharge ED (Routine); Ordered 09/30/23 Ordered By: Dioni Alejo Referrals: Michael Champagne MD [Primary Care Provider] - Discharge Diet: Usual diet Discharge Activity: Increase activity as tolerated Patient Instructions: Abdominal Pain (ED), Opioid Safety, Pain Management Activity Restrictions/Additional Instructions: Thank you for choosing [facility] for your healthcare needs today. Please realize this is an emergency room and that we are providing you with a medical screening exam and this may not be complete and all inclusive of all the testing and or work up that you may need to determine your ailment or severity of your illness. It is very important that you follow up as instructed or that you return to the Emergency Department should you have concerns or if your condition changes or worsens in any way. You are seen today for abdominal pain. Laboratory studies are normal your urine test is negative liver functions and pancreas enzymes are normal. Recommend start omeprazole twice daily for 10 days then once daily if symptoms persist follow-up with primary care doctor. Coding Level of Care Code ED Seed Production Field Supervisor for Rachel Shannon
[2023-09-30] MEDS: promethazine 25 mg/mL SDV 1 mL IM (12:58)
[2023-09-30] MEDS: sodium chloride 0.9% 1,000 ML 999 ML IV (12:58)
[2023-09-30 13:08] LABS: Add Urine Culture? No; Add Urine Microscopic? YES; Bacteria Urine 1+ /hpf; Bilirubin Urine Neg (Negative); Blood Urine Neg (Negative); Glucose Urine UA Norm (Normal); Ketones Urine Negative (Negative); Leukocyte Esterase Urine Negative (Negative); Mucus Urine 3+ /hpf; Nitrate Urine Negative (Negative); Protein Urine Trace (Negative); RBC Urine 0-4 /hpf (0-2); Specific Gravity, Urine 1.015 (1.005-1.030); Urine Appearance Clear (CLEAR); Urine Color Yellow (Yellow); Urobilinogen Urine Norm (Negative); WBC Urine 0-4 /hpf (0-5); pH Urine 5 (5-7)
[2023-09-30 13:10] VITALS: BP 128/73; PULSE 79; O2SAT 96
[2023-09-30 13:10] LABS: Basophils % 0.5 %; Eosinophils # 0.1 10^3/uL (0.0-0.8); Eosinophils % 0.9 %; Hematocrit 33.3 % (36-47); Lymphocytes # 2.3 10^3/uL (1.5-6.5); Lymphocytes % 26.6 %; Mean Corpuscular HGB Conc 28.8 g/dL (30-55); Mean Corpuscular Hemoglobin 17.7 pg (27-33); Mean Corpuscular Volume 61.6 fl (85-98); Monocytes # 0.5 10^3/uL (0.2-0.9); Monocytes % 5.3 %; Neutrophils # 5.75 10^3/uL (1.8-8.0); Neutrophils % 66.4 %; Nucleated Red Blood Cells % 0 %; Platelet Count 263 10^3/cmm (157-399); Red Blood Count 5.41 10^6/uL (3.85-5.65); Red Cell Distribution Width 21.4 % (12.1-15.1); White Blood Count 8.67 10^3/uL (4.5-13.0)
[2023-09-30 13:22] LABS: Alanine Aminotransferase 43 U/L (0-33); Albumin Level 4.3 g/dL (3.5-5.2); Alkaline Phosphatase 165 U/L (35-105); Aspartate Amino Transferase 24 U/L (0-32); Blood Urea Nitrogen 7 mg/dL (6-20); Calcium 9.7 mg/dL (8.5-10.5); Carbon Dioxide 24 mmol/L (22-29); Chloride 106 mmol/L (98-107); Globulin 2.9 g/dL (1.3-4.6); Glomerular Filtration Rate 127.5 mL/min (90-130); Glucose 93 mg/dL (65-115); Lipase 27 U/L (13-60); Osmolality Calculated 288 mOsm/kg (285-295); Sodium 140 mmol/L (136-145); Total Bilirubin 0.7 mg/dL (0.15-1.2); Total Protein 7.2 g/dL (6.6-8.7)
[2023-09-30 13:33] LABS: HCG, Serum Qual Negative (Negative)
[2023-09-30 14:28] VITALS: BP 141/86; PULSE 69; O2SAT 99
== END 2023-09-30 14:30 | disposition home or self-care (01) ==
PROVIDERS: Emergency Provider Family Medicine; PCP Family Medicine
DX: R10.84 Generalized abdominal pain (principal); F17.290 Nicotine dependence, other tobacco product, uncomplicated
CPT/HCPCS: 80053; 81001; 83690; 84703; 85025; 96360; 96372; 99284; J2550; J7030

== ENCOUNTER → 2025-03-05 14:00 | Outpatient (BNVA) | payer BC, MEDICAID, SELFPAY | PROVIDERS: PCP Family Medicine; Visit Provider Nurse Practitioner Women's Health | DX: Z36.87 Encounter for antenatal screening for uncertain dates (principal) | CPT/HCPCS: 76817; 81025 ==

== ENCOUNTER → 2025-03-19 08:25 | Outpatient (BNVA) | payer SELFPAY | PROVIDERS: PCP Family Medicine; Visit Provider Obstetrics & Gynecology | DX: Z36.9 Encounter for antenatal screening, unspecified (principal) | CPT/HCPCS: 76801 ==

== ENCOUNTER → 2025-04-06 08:00 | Outpatient (BNVA) | payer BC, MEDICAID, SELFPAY | PROVIDERS: PCP Family Medicine; Visit Provider Obstetrics & Gynecology | DX: Z34.90 Encounter for supervision of normal pregnancy, unspecified, unspecified trimester (principal) | CPT/HCPCS: 84315 ==

== ENCOUNTER → 2025-04-20 10:58 | Outpatient (BNVA) | payer BC, MEDICAID, SELFPAY | PROVIDERS: PCP Family Medicine; Visit Provider Obstetrics & Gynecology | DX: Z34.90 Encounter for supervision of normal pregnancy, unspecified, unspecified trimester (principal) | CPT/HCPCS: 80307; 84443; 85025; 86592; 86762; 86803; 86850; 86900; 87086; 87340; 87491; 87591; 87661; 87806 ==

== ENCOUNTER 2025-04-24 19:02 | Emergency (ER) | payer BC, MEDICAID, SELFPAY ==
--- OUTSIDE RECORDS SUMMARY | 2024-01-17 10:30 | XMS_ITS | Continuity of Care Document ---
Author Organization [facility] Address [id number] [address] Phone Care Team Providers Care Nursing Clinical Director Name Role Phone Yolanda Noriega DMD Unavailable Unavailable Allergies, Adverse Reactions, Alerts Substance Reaction Status Criticality FLUOXETINE HCL Active No Informatio n BUPROPION HCL Active No Information Medications Medication Instructions Dosage Effective Dates (start - stop) Status Comments amoxicillin 500 mg capsule take 1 capsule by oral route every 8 hours until gone for dental infection - Active hydrocodone 5 mg-acetaminophen 325 mg tablet Take 1 tablet by oral route every 6 hours as needed for pain. for Pain - Active ibuprofen 800 mg tablet take 1 tablet by oral route 3 times every day with food 800 MG - Active Procedures Procedure Date Bitewings Four Films Intraoral Periapical First Film Intraoral Periapical Each Additional Film Intraoral Periapical Each Additional Film Intraoral Periapical Each Additional Film Prophylaxis Adult Comprehensive Oral Evaluatio n New Or Established Caries High Risk Exempt From Sealant Measure Limited Oral Evaluation Problem Focused Extraction, Erupted Tooth Or Exposed Amada t (Elevati Extraction, Erupted Tooth Or Exposed Amada t (Elevati Panoramic Film Limited Oral Evaluation Problem Focused Intraoral Periapical First Film Intraoral Periapical Each Additional Film Extraction, Erupted Tooth Or Exposed Amada t (Elevati Surgical Removal Of Erupted Tooth Requir ing Elevat Intraoral Periapical First Film Limited Oral Evaluation Problem Focused Advance Directives Directive Yes / No Effective Date File Name No Information Encounters Encounter Description Practice Location Reason(s) For Visit Diagnoses Date Provider Providers Copied on Encounter [facility], [id number], [id number], [place] tel:[phone] [facility] Encounter for dental exam and cleaning w/o abnormal findings 4 Leann Guerrero. [address] [place] [address], [address], [place]. tel:[phone] Referring Provider: Yolanda Noriega, [address] [place] [address], [address]. tel:[phone] [facility], [id number], [id number], [place] tel:[phone] [facility] Encounter for dental exam and cleaning w/o abnormal findings 3 Sofya Solano. [address], [place], [id number], [place]. tel:[phone] Referring Provider: Russ Knowles, [address] [place], [address] . tel:[phone] [facility], [id number], [id number], [place] tel:[phone] [facility] No Information 2 Rui Muller. [address] [place], [address], [place]. tel:[phone] Referring Provider: Yohana Fabian, [address] [place], [address]. tel:[phone] [facility], [id number] [place], [place], [id number], [place] tel:[phone] [facility] Insufficient social insurance and welfare support 2 [facility]. [address] [place], [place], [id number], [place]. tel:[phone] [facility], [id number] [place], [id number], [place] tel:[phone] [facility] No Information 2 Itz Damon. [address], [place], [id number], [place]. tel:[phone] Referring Provider: Marisol Mobley, [address] [place], [address] . tel:[phone] Family History Family Member Type Diagnosis Age At Onset No Information Payers Payer name Insurance type Covered democrat ID Moises lopez(s) Eleni D[employer] CI [id number] Social History Type Description Quantity Date Captured Comments Alcohol Use Details No Caffeine Use Details Unknown Tobacco Use Status Current non-smoker Smoking Status Never smoker Non-Smoking Tobacco Use Details : No Details Available : No Details Available Sex Female Gender Identity Female Chief Complaint And Reason For Visit No Information Reason For Referral Reason For Referral No Information History Of Present Illness Encounter Date Complaint History Of Prese nt Illness No Information Functional Status Date Functional Assessmen t No Information Instructions Date Instruction Additional Infor mation No Information Assessments Type Assessment Date No Information Patient Care Teams Name Effective Dates (start - stop) Status Members No Information
--- OUTSIDE RECORDS SUMMARY | 2025-04-24 19:10 | XMS_ITS | Clinical Summary ---
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
--- OUTSIDE RECORDS SUMMARY | 2025-04-24 19:11 | XMS_ITS | Patient Health Record ---
Author Organization [facility] Address [address] [place] [phone] Care Team Providers Care Decal Maker Name Role Phone Non [facility], Provider Primary Care Ronnie hairston Unavailable Barbara Hernandez [phone] Allergies No Known Allergies Reason For Referral No Information Medications Medication SIG (Take, Route, Frequency, Duration) Notes Start Date End Date Status Azelastine-Fluticaso ne 137-50 MCG/ACT 1 spray in each nostril Nasally Twice a day for 30 day(s) 04/15/2021 Not-Taking Triamcinolone Acetonide 0.1 % 1 application Externally three times a day for 7 days 04/18/2021 Not-Taking Ibuprofen 200 MG 5 tablets with food or milk as needed Orally once a day PRN Active Advair Diskus 100-50 MCG/DOSE 1 puff Inhalation Twice a day for 30 days Active Polyethylene Glycol 3350 - 1 cap 3x a day x2-3 days, then 1-2 cap daily as directed for 30 days PRN 12/19/2019 Active Pantoprazole Sodium 20 MG 1 tablet Orally Once a day for 30 day(s) 04/05/2021 Not-Taking busPIRone HCl 5 MG 2 tablets as needed Orally every 8 hrs for 30 PRN Active Nexplanon 68 MG as directed Subcutaneous Per pt New Nexplanon at [facility] 10/01/2020 Active Albuterol Sulfate HFA 108 (90 Base) MCG/ACT 2 to 4 puffs as needed Inhalation every 4 hrs for 30 days PRN 12/22/2019 Active Immunizations Vaccine Route Administration Date Status Comme nts Flu Vac Pres Free Quad 0.5 PRIVATE IM Intramuscular 08/27/2020 Administered Gardasil-Private Stock IM Intramuscular 08/27/2020 Adminis tered Hepatitis I-[id number] Stock IM Intramuscular 08/27/2020 Administered Social History Tobacco Use: Social History Observation Description Date Details (start date - stop date) Former Smoker NA - NA Sex Assigned At : Social History Observation Description Sex Assigned At Female - Question Answer Notes Did you have a drink containing alcohol in the p ast year? No Points 0 Interpretation Negative JESUS Drug Questionnaire Question Answer Notes Have you used drugs other th an those for medical reasons in the past 12 months? No Do you smoke for age 13 and up Question Answer Notes Are you a: former smoker How long has it been since y ou last smoked? 1-3 months Additional Findings: Tobacco User Light cigarett e smoker ((1-9 cigs/day) Smokeless Tobacco Question Answer Notes Tobacco use other than smoking No Have you ever had an STD Question Answer Notes Have you ever had an STD No Prevention Strategies Discussed Other Problems Problem Type SNOMED Code ICD Code Onset Dates Problem Status W/U Status Risk Notes Problem 528358418 Depression with anxiety (F41.8) Active confirmed Problem 412944795 Anxiety attack (F41.0) Active confirmed Problem 67810313 Sleep disturbanc e (G47.9) Active confirmed Problem 097841372 Gastroesophageal reflux disease without esophagitis (K21.9) Active confirmed Problem 20535093 Slow transit constipation (K59.01) Active confirmed Problem 572038985 Mild intermitten t asthma without complication (J45.20) Active confirmed Problem 86067453 PUD (peptic ulce r disease) (K27.9) Active confirmed Problem 16985610 Non-seasonal allergic rhinitis, unspecified trigger (J30.89) Active confirmed Problem 878994998 ADHD (attention deficit hyperactivity disorder) evaluation (Z13.39) Active confirmed Plan Of Treatment No Information Insurance Providers Payer Name Payer Address Payer Phone Subscriber Number Group Number Insured Name Patient Relationship to Insured Coverage Start Date Coverage End Date [facility] [address] [place], [place] [phone] [id number] Monika Khan Self - patient is the insured 1 Medications Administered Medication Instructions Date of Administration Dosage Notes Decadron LA 8mg 05/26/2019 8 mg Decadron SA 4mg/ml (dexamethasone) 05/26/2019 4 mg Toradol 12/18/2019 30 mg Medical (General) History Medical History History ICD Code asthma constipation depression with anxiety GERD ADHD allergic rhinitis peptic ulcer disease Attention deficit hyperactivity disorder (ADHD), unspecified ADHD type F90.9 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
--- OUTSIDE RECORDS SUMMARY | 2025-04-24 19:11 | XMS_ITS | Data Portability ---
Author Organization [facility] Abdiel Ty [facility], .L.Preet, [facility] Address [address] [place] [address] Assessment No assessment recorded. Plan of Treatment Reminders Order Date Submit Date Provider Last Modified By Organization Details Last Modified Time Details Appointments None recorded. Lab test, urine 2023 024 [facility] ([facility]), [address] [place] [address], [phone], 4 14:31:16 rapid flu (A+B), PCR 2023 024 [email or web address] [facility] ([facility]), [address] [place] [address], [phone], 4 13:31:20 Referral None recorded. Procedures None recorded. Surgeries None recorded. Imaging US, obstetric, 1st trimester - in 1-2 weeks 2024 025 [email or web address] [facility] ([facility]), [address] [place], [address], 5 07:00:44 Medication Orders ondansetron HCl 4 mg tablet 2024 025 [facility], [address], [place], [address], 5 14:45:41 azithromyci n 250 mg tablet 2023 024 [facility], [address], [place], [address], 4 12:32:54 cetirizine 10 mg tablet 2023 024 [email or web address] 40 [facility] 15, [address], [place], [address], 5 14:06:54 benzonatate 200 mg capsule 2023 024 [facility] 15, [address], [place], [address], 12:33:02 Patient TargetsNo targets recorded. Patient InstructionsNo instructions recorded. Reason for Referral None Reported. Results Created Date Observation Date Name Description Value Unit Range Abnormal Flag Note LastModifiedBy Organization Detail LastModifiedTime 01/15/20 24 01/15/2024 rapid flu (A+B) , PCR Influenza A negati ve Not Available [facility] ([facility]) [address] [place], [address], 01/15/2024 13:01:25 01/15/20 24 01/15/2024 rapid flu (A+B) , PCR Influenza B negati ve Not Available [facility] ([facility]) [address] [place], [address], 01/15/2024 13:01:25 04/01/20 24 04/01/2024 pregn aaron test, urine HCG negati ve Not Available [facility] ([facility]) [address] [place], [address], 04/01/2024 12:57:34 07/02/20 24 07/02/2024 pregn aaron test, urine HCG negati ve Not Available [facility] ([facility]) [address] [place], [address], 07/02/2024 14:10:13 Result Notes None recorded. Problems Name Problem SNOMED Code Status Onset Date Resolution Date Notes Provider Name and Address Organization Details Recorded Time Pregnanc y 31089452 Completed 202210/01/2023 GAEL varner, [facility] 5 14:07:20 Mixed anxiety and depressi ve disorder 661448206 Active 2022 GAEL varner, [facility] 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 5 14:13:48 Hypergly cemia 18907704 Active 2022 JOSE varner [facility] 3 11:43:06 Proteinu jessy 16774671 Active 2022 JOSE varner [facility] 3 11:43:06 Low back pain 576689705 [facility] 14:13:37 Pregnanc y-induce d hyperten michael 32362911 Active 2022 JOSE varner [facility] 3 11:43:06 Pregnanc y 82614159 Active 2024 GAEL varner [facility] 5 14:07:20 Asthma 339618856 Active 2022 ASTHMA; Impressio n: patient has intermitt ent issues with her asthma. refill provided for albuterol .; Recorded 3 9:10AM by Jonna Barbosa, Office Visit; Promoted; acuity set as *; JOSE varner [facility] 3 11:43:06 Chlamydi al infectio n 428373061 Active 2022 CHLAMYDIA ; Recorded 3 10:31AM by David Talamantes; Promoted; acuity set as *; GAEL ROCKY CRUZ telly [facility] 5 14:12:34 Attentio n deficit hyperact ivity disorder 527166877 Active 2022 ADHD; Impressio n: managed by [facility]; Recorded 3 9:10AM by Jonna Barbosa, Office Visit; Promoted; acuity set as *; JOSE varner [facility] 3 11:43:06 Anxiety state 862027672 Active 2022 ANXIETY AND DEPRESSIO N; Impressio n: managed by [facility]; Recorded 3 9:10AM by Jonna Barbosa, Office Visit; Promoted; acuity set as *; JOSE MORRISONG telly [facility] 3 11:43:06 Problem Notes None recorded. Procedures Surgical History Date Name Laterality Status Provider Name and Address Organization Details Recorded Time 4 Nexplanon Insertion completed Michael Champagne MD [address] [place] [address], [phone] 12/17/2023 12:00:03 3 section completed GAEL CRUZ [facility] 03/03/2025 14:16:05 Imaging Results None recorded. Procedure Notes None recorded. Medical Equipment None Reported. Allergies Allergen ID Allergen Name Allergen Category Reaction Reaction Severity Criticality Documentation Date Start Date Code Code System Note Provider Name and Address Organization Details Recorded Time 77355 Prozac medicatio n rash mild low 05/26/2023 92049 RxNorm Lita Mclain telly [facility] 4 13:04:21 741 Wellbutri n medicatio n rash mild low 01/25/2023 41176 [facility] 4 13:04:28 Medications Name Sig Start Date Stop Date Status Note LastModified by Organization Details LastModified Time amoxicill in 500 mg capsule TAKE 1 CAPSULE BY MOUTH EVERY 8 HOURS UNTIL GONE FOR DENTAL INFECTIO N 04/01 completed Not Available Not Available Not Available trazodone 50 mg tablet TAKE 1 TABLET BY MOUTH ONCE DAILY AT BEDTIME NEEDED FOR INSOMNIA 02/15 completed Not Available Not Available Not Available cetirizin e 10 mg tablet TAKE 1 TABLET BY MOUTH ONCE DAILY FOR 30 DAYS 03/03 completed Not Available Not Available Not Available azithromy trish 250 mg tablet TAKE 2 TABLETS BY MOUTH ON DAY 1, AND THEN TAKE 1 TABLET BY MOUTH ONCE A DAY ON DAY 2 THROUGH DAY 5 04/01 completed Not Available Not Available Not Available fluconazo le 150 mg tablet TAKE 1 TABLET BY MOUTH A ONE TIME DOSE 02/15 completed Not Available Not Available Not Available benzonata te 200 mg capsule TAKE 1 CAPSULE BY MOUTH THREE TIMES DAILY FOR 10 DAYS 04/01 completed Not Available Not Available Not Available hydrocodo ne 5 mg-acetam inophen 325 mg tablet TAKE 1 TABLET BY MOUTH EVERY 6 HOURS NEEDED FOR PAIN 02/15 completed Not Available Not Available Not Available ondansetr on HCl 4 mg tablet TAKE 1 TABLET BY MOUTH THREE TIMES DAILY 30 MINUTES BEFORE MEALS NEEDED FOR NAUSEA active Not Available Not Available No t Available prednison e 20 mg tablet TAKE 1 TABLET BY MOUTH ONCE DAILY FOR 5 DAYS 07/02 completed Not Available Not Available Not Available Rocephin 250 mg solution for injection one time dose 10/01 completed 0; Recorded 01/16/20 23 9:10AM by Jonna Barbosa, Office Visit; Not Available Not Available Not Available ondansetr on 8 mg disintegr ating tablet DISSOLVE 1 TABLET IN MOUTH EVERY 8 HOURS NEEDED 10/01 completed Not Available Not Available Not Available lamotrigi ne 25 mg tablet TAKE 1 TABLET BY MOUTH ONCE DAILY FOR 2 WEEKS, THEN 2 TABLETS BY MOUTH DAILY FOR 2 WEEKS, THEN 3 TABLETS DAILY FOR 2 WEEKS, THEN 4 TABLETS DAILY 02/15 completed Not Available Not Available Not Available paroxetin e 20 mg tablet TAKE 1 TABLET BY MOUTH ONCE DAILY 01/25 completed Not Available Not Available Not Available pantopraz ole 40 mg tablet,de layed release TAKE 1 TABLET BY MOUTH IN THE MORNING 02/15 completed Not Available Not Available Not Available oseltamiv ir 75 mg capsule TAKE 1 CAPSULE BY MOUTH TWICE DAILY FOR 5 DAYS 02/15 completed Not Available Not Available Not Available buspirone 10 mg tablet Take 1 tablet twice a day by oral route. 12/05 completed Not Available Not Available Not Available hydroxyzi ne HCl 25 mg tablet TAKE 2 TABLETS BY MOUTH EVERY DAY AT BEDTIME NEEDED FOR INSOMNIA 05/16 completed Not Available Not Available Not Available paroxetin e 40 mg tablet TAKE 1 TABLET BY MOUTH ONCE DAILY 02/15 completed Not Available Not Available Not Available sertralin e 50 mg tablet TAKE 1 TABLET BY MOUTH ONCE DAILY 02/15 completed Not Available Not Available Not Available Ventolin HFA 90 mcg/actua tion aerosol inhaler INHALE 2 PUFFS BY MOUTH EVERY 4 HOURS 03/03 completed Not Available Not Available Not Available buspirone 15 mg tablet TAKE 1 TABLET BY MOUTH TWICE DAILY 03/03 completed Not Available Not Available Not Available NuvaRing 0.12 mg-0.015 mg/24 hr vaginal INSERT ONE RING VAGINALL Y AND LEAVE IN PLACE FOR 3 CONSECUT PAOLO WEEKS, THEN REMOVE FOR 1 WEEK. INSERT NEW RING 7 DAYS AFTER THE LAST WAS REMOVED 03/03 completed Not Available Not Available Not Available azithromy trish 500 mg tablet TAKE 2 TABLETS BY MOUTH ONCE 01/25 completed Not Available Not Available Not Available duloxetin e 30 mg capsule,d elayed release Take 1 capsule every day by oral route. 12/14 completed Not Available Not Available Not Available duloxetin e 60 mg capsule,d elayed release Take 1 capsule by mouth once daily active Not Available Not Available No t Available albuterol sulfate every four hours, as needed 10/01 completed Recorded 01/16/20 23 9:10AM by Jonna Barbosa, Office Visit; Refill Quantity : 1; Each; Not Available Not Available Not Available Vitamin daily 10/01 completed 0; Recorded 01/16/20 23 9:10AM by Jonna Barbosa, Office Visit; Not Available Not Available Not Available guanfacin e ER 4 mg tablet,ex tended release 24 hr TAKE 1 TABLET BY MOUTH ONCE DAILY 02/15 completed Not Available Not Available Not Available Nexplanon 68 mg subdermal implant Inject 1 implant by subcutan eous route. 04/01 completed administ ered by Dr. Champagne.pt wants nexplano n out 04/01/24. Not Available Not Available Not Available Nexplanon 03/03 completed Not Available Not Available Not Available M-Alex Plus 27 mg iron-1 mg tablet TAKE 1 TABLET BY MOUTH ONCE DAILY 10/01 completed Not Available Not Available Not Available Vitals Date Recorded Body height Body mass index (BMI) Body weight Oxygen saturation Oxygen saturation in Arterial blood by Pulse oximetry Heart rate Respiratory rate Body temperature Systolic blood pressure Diastolic blood pressure Provider Name and Address Organization Details Last Updated DateTime 4 154.94 cm 37.4 kg/m2 70182.2 9 g 97 % 97 % 103 /min 16 /min 97.1 [degF] 120 mm[Hg] 82 mm[Hg] Lita Mclain [facility] 4 13:04:09 Date Recorded Body height Body mass index (BMI) Body weight Oxygen saturation Oxygen saturation in Arterial blood by Pulse oximetry Heart rate Respiratory rate Body temperature Systolic blood pressure Diastolic blood pressure Provider Name and Address Organization Details Last Updated DateTime 4 154.94 cm 38.2 kg/m2 16617.6 6 g 98 % 98 % 115 /min 16 /min 97.4 [degF] 148 mm[Hg] 80 mm[Hg] Elyse Martinez [facility] 4 14:15:20 Date Recorded Body height Body mass index (BMI) Body weight Body temperature Oxygen saturation Oxygen saturation in Arterial blood by Pulse oximetry Heart rate Systolic blood pressure Diastolic blood pressure Provider Name and Address Organization Details Last Updated DateTime 5 154.94 cm 36.7 kg/m2 47513.9 2 g 98.4 [degF] 99 % 99 % 98 /min 118 mm[Hg] 70 mm[Hg] GAEL CRUZ [facility] 5 14:06:24 Date Recorded Body height Body mass index (BMI) Body weight Body temperature Oxygen saturation Oxygen saturation in Arterial blood by Pulse oximetry Heart rate Systolic blood pressure Diastolic blood pressure Provider Name and Address Organization Details Last Updated DateTime 4 154.94 cm 36.9 kg/m2 62498.2 1 g 97.7 [degF] 99 % 99 % 84 /min 137 mm[Hg] 84 mm[Hg] JONNA BARBOSA [facility] 4 12:32:40 Date Recorded Body height Body mass index (BMI) Body weight Oxygen saturation Oxygen saturation in Arterial blood by Pulse oximetry Heart rate Respiratory rate Body temperature Systolic blood pressure Diastolic blood pressure Provider Name and Address Organization Details Last Updated DateTime 4 154.94 cm 36.7 kg/m2 28287.9 2 g 98 % 98 % 97 /min 16 /min 98.5 [degF] 170 mm[Hg] 100 mm[Hg] Elyse Martinez [facility] 4 14:09:13 Social History Question Answer Notes LastModified by Organizat ion Details LastModified Time Tobacco Smoking Status Current Every Day Smoker vape GAEL CRUZ [facility] 03/03/2025 14:15:45 Are You Blind Or Do You Have Difficulty Seeing? No Information not available 01/22/2023 What Is Your Level Of Caffeine Consumption? Occasional Information not available 01/22/2023 Are You Deaf Or Do You Have Serious Difficulty Hearing? No Information not available 01/22/2023 What Is Your Relationship Status? Single Information not available 01/22/2023 Are You Sexually Active? Yes Information not available 01/22/2023 Have You Recently Traveled Abroad? No Information not available 01/22/2023 Do You Have Difficulty Walking Or Climbing Stairs? No Information not available 01/22/2023 Sex: Unknown Functional Status Question Answer Note LastModified by Organizat ion Details LastModified Time Do you use any illicit or recreational drugs? No Information not available 01/22/2023 What is your level of alcohol consumption? None Information not available 01/22/2023 Do you have transportation difficulties? No Information not available 01/22/2023 What is your status? Information no t available 01/22/2023 Are you able to walk? YESWOREST Information not available 01/22/2023 Do you have difficulty doing errands alone? No Information not available 01/22/2023 Are you able to care for yourself? Yes Information not available 01/22/2023 Do you have difficulty dressing or bathing? No Information not available 01/22/2023 Mental Status Question Answer Note LastModified by Organization D etails LastModified Time Do you have difficulty concentrating, remembering or making decisions? No Information no t available 01/22/2023 Family History Relationship Description Onset Age of this Age Resolved Age Notes LastModified by Organization Details LastModified Time Maternal Grandmother Hypertensive disorder [email or web address] Not available 03/2025 14:15:26 Notes:HTN: grandma Medical History No medical history recorded. Gynecological History Statement/Question Response Abnormal Pap N Flow Moderate Date of LMP 09/17/2022 Frequency of Cycle (Q days) 28 Menses Monthly Y Duration of Flow (days) 7 Date of Last Pap Smear Obstetrics History GPAL:G 2 P 1 0 0 1 Type Value Multiple Births 0 Full Term 1 Induced 0 Spontaneous 0 Premature 0 Living 1 Ectopics 0 Total 2 Immunizations Vaccine Type Date Status Note Provider Nam e and Address Organization Details Recorded Time meningococcal MCV4, unspecified formulation 6 completed Not Available [facility] 12/14/2023 11:57:39 IPV 3 completed JOSE varner [facility] 05/02/2023 13:49:57 IPV 3 completed JOSE MORRISONG null, [facility] 05/02/2023 13:49:57 MMR 4 completed JOSE DIONNE null, [facility] 05/02/2023 13:49:57 MMRV 7 completed JOSESA TRUONG null, [facility] 05/02/2023 13:49:57 Influenza, split virus, trivalent, preservative 1 completed JOSE TRUONG null, [facility] 05/02/2023 13:49:57 Hep B, adolescent or pediatric 3 completed JOSE TRUONG null, [facility] 05/02/2023 13:49:57 Hib (HbO) 3 completed JOSE TRUONG null, [facility] 05/02/2023 13:49:57 Hib (HbO) 4 completed JOSE TRUONG null, [facility] 05/02/2023 13:49:57 Hib ([facility]) 3 completed JOSE TRUONG null, [facility] 05/02/2023 13:49:57 DTaP 3 completed JOSE DIONNE null, [facility] 05/02/2023 13:49:57 DTaP 4 completed JOSE DIONNE null, [facility] 05/02/2023 13:49:57 DTaP 3 completed JOSE DIONNE null, [facility] 05/02/2023 13:49:57 DTaP-Hep B-IPV 7 completed JOSE DIONNE null, [facility] 05/02/2023 13:49:57 Tdap 3 completed Michael Champagne MD [address] [place] [address], [phone], [facility]. 03/19/2023 15:05:51 Past Encounters Encounter ID Performer Location Encounter Start Date Encounter Closed Date Diagnosis/Indication Diagnosis SNOMED-CT Code Diagnosis ICD10 Code Diagnosis Note [id number] Michael Champagne MD [facility] ([facility]) [address] [place] [id number] 01/25/2023 13:54:03 02/02/2023 19:46:46 care: primigravida 880588366 Z34.02 No concerns on today's visit. Anticipato ry guidance provided and all questions answered. Gestation period, 17 weeks 02767936 Z3A.17 [id number] Michael Champagne MD [facility] ([facility]) [address] [place] [id number] 02/15/2023 13:40:55 02/15/2023 14:48:56 Normal in multigravida [id number] 06498 Z34.82 [id number] Michael Champagne MD [facility] ([facility]) [address] [place] [id number] 5 02/15/2023 14:36:10 02/21/2023 08:32:56 care: primigravida 854010661 Z34.02 No concerns on today's visit. Anticipato ry guidance provided and all questions answered. Gestation period, 20 weeks 76084227 Z3A.20 [id number] Michael Champagne MD [facility] ([facility]) [address] [place] [id number] 03/19/2023 14:02:08 03/19/2023 15:29:53 Gestation period, 24 weeks 421707012 Z3A.24 care: primigravida 527556413 Z34.02 No concerns on today's visit. Anticipato ry guidance provided and all questions answered. [id number] MEENAKSHI HANDY [facility] ([facility]) [address] [place] [id number] 04/11/2023 08:10:04 04/11/2023 20:50:22 Gestation period, 28 weeks 55305344 Z3A.28 Itching of both hands 89 3030906 L29.8 [id number] Michael Champagne MD [facility] ([facility]) [address] [place] [address] [id number] 04/19/2023 13:58:57 04/19/2023 14:29:22 care: primigravida [id number] Z34.02 No concerns on today's visit. Anticipato ry guidance provided and all questions answered. Gestation period, 29 weeks 55065601 Z3A.29 [id number] Michael Champagne MD [facility] ([facility]) [address] [place] [id number] 05/02/2023 11:59:16 05/02/2023 17:09:48 [id number] Michael Champagne MD [facility] ([facility]) [address] [place] [id number] 05/02/2023 13:43:53 05/02/2023 17:50:39 care: primigravida 396977221 Z34.03 No concerns on today's visit. Anticipato ry guidance provided and all questions answered. Gestation period, 31 weeks 87387627 Z3A.31 [id number] Michael Champagne MD [facility] ([facility]) [address] [place] [id number] 05/16/2023 13:50:46 05/16/2023 17:18:05 05269877 Z33.1 Hyperglycemia 25374700 R 73.9 care: primigravida 967076066 Z34.03 Elevated blood-pressure reading without diagnosis of hypertension 085464560 R03.0 Proteinuria 11722771 R80 .9 [id number] Michael Champagne MD [facility] ([facility]) [address] [place] [address] [id number] 05/25/2023 12:05:53 05/25/2023 16:25:53 Normal in multigravida 1441444560 21734 Z34.82 Labor precaution s given. Stressed the importance of continue to monitor her blood sugar given her borderline gestationa l diabetes status. Gestation period, 34 weeks 10196626 Z3A.34 - induced hypertension 99069944 O13.9 Once again patient's blood pressure is elevated today in clinic with repeat still elevated. We will start weekly NSTs with biophysica l profile today. Obtain growth ultrasound at 36 weeks. Proteinuria 43873658 R80 .9 Patient continues to have protein in the urine, however it was not in the preeclampt ic level. We will continue to monitor [id number] Michael Champagne MD [facility] ([facility]) [address] [place] [address] [id number] 06/05/2023 14:36:08 06/05/2023 19:52:01 [id number] Michael Champagne MD [facility] ([facility]) [address] [place] [address] [id number] 5 06/06/2023 13:43:05 06/06/2023 16:31:32 Normal in multigravida 5138416850 87799 Z34.82 Labor precaution s given. Stressed the importance of continue to monitor her blood sugar given her borderline gestationa l diabetes status. - induced hypertension 59541555 O13.9 Patient's blood pressure was elevated but it did come down with repeat. Continue to monitor blood pressure at home. Recommend early induction. [id number] Michael Champagne MD [facility] ([facility]) [address] [place] [address] [id number] 06/13/2023 13:49:36 06/13/2023 17:03:04 Normal in multigravida 0011182063 80413 Z34.82 Labor precaution s given. Stressed the importance of continue to monitor her blood sugar given her borderline gestationa l diabetes status. - induced hypertension 32139867 O13.9 Continue to monitor blood pressure at home. To present to labor and delivery with any significan t elevations . Plan on induction of labor in 1 week. Gestation period, 37 weeks 83225655 Z3A.37 [id number] Michael Champagne MD [facility] ([facility]) [address] [place] [address] [id number] 06/18/2023 09:10:31 06/18/2023 14:08:43 Normal in multigravida 0516708062 03790 Z34.82 Labor precaution s given. Stressed the importance of continue to monitor her blood sugar given her borderline gestationa l diabetes status. - induced hypertension 73893932 O13.9 Continue to monitor blood pressure at home. To present to labor and delivery with any significan t elevations . Plan on induction of labor on June 20 at 9 AM. Plan on cervical ripening with Cytotec. Consent obtained. [id number] Michael Champagne MD [facility] ([facility]) [address] [place] [address] [id number] 5 10/01/2023 14:41:44 10/01/2023 15:39:03 Mixed anxiety and depressive disorder 053953464 F41.8 Will restart duloxetine at 30 mg. Will add buspirone to help with anxiety. Follow-up in 4 to 6 weeks. 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 Will also go ahead and increase the BuSpar dose to 15 mg Low back pain 294756568 M54.50 Patient is not having radiation of her symptoms and would likely benefit from physical therapy given her continued symptoms. Contracept ion care management 933855415 Z30.9 We will order the Nexplanon and have it replaced next week. [id number] Michael Champagne MD [facility] ([facility]) [address] [place] [address] [id number] 5 12/14/2023 11:57:28 12/14/2023 12:37:07 Contraception care management 026566631 Z30.9 Patient test was negative and the Nexplanon was placed. See procedure note Dysuria 60138175 R30.0 UA was not consistent with infection. Will also include gonorrhea and chlamydia as the patient has been positive for this in the past. [id number] MEENAKSHI GUERRA [facility] ([facility]) [address] [place] [address] [id number] 5 12/16/2023 14:06:40 12/16/2023 15:07:30 Cough 07996923 R05.9 Viral uppe r respiratory tract infection [id number] J06.9 Continue OTC meds. Increase PO fluids. [id number] MEENAKSHI CHILEL [facility] ([facility]) [address] [place] [phone] 5 01/14/2024 16:00:40 01/14/2024 16:27:58 Acute bacterial bronchitis [id number] J20.9 Discussed use of otc meds for symptom control since symptoms started today. VSS. Return if you develop fever or worsening s/s [id number] ALEXA REYNOLDS [facility] ([facility]) [address] [place] [address] [phone] 01/15/2024 12:49:30 01/15/2024 13:34:56 Fever [id number] R50.9 Flu A negative.F mirna B negative. Cough [id number] R05.9 Will start benzonatat e PRN for cough. Reassured with negative flu test and normal exam. Discussed with mom and patient that this is likely viral and will have to run its course. Can give tylenol as needed for pain and fevers. Should continue albuterol and prednisone as prescribed . If worsening condition or no improvemen t in 7-10 days, return for further evaluation . Patient verbalizes understand ing. Asthma [id number] J45.90 9 Will re-start cetirizine for better asthma control. Patient encouraged to follow up with PCP to discuss alternativ e for Advair. [id number] MEENAKSHI CHILEL [facility] ([facility]) [address] [place] [address] [phone] 5 01/20/2024 14:07:20 01/20/2024 14:39:38 Acute bacterial bronchitis [id number] J20.9 Discussed use of rxn. Return if symptoms worsen or concerns arise. Continue use of daily zyrtec and inhaler if needed. [id number] Michael Champagne MD [facility] ([facility]) [address] [place] [address] [phone] 5 04/01/2024 12:27:08 04/01/2024 13:00:28 Contraception care management [id number] Z30.9 Regnancy test here was negative. Patient was reassured and will keep the Nexplanon device at this time. [id number] MEENAKSHI CHILEL [facility] ([facility]) [address] [place] [address] [phone] 5 07/02/2024 13:57:36 07/02/2024 16:24:16 Irregular periods [id number] N92.6 Breakthrou gh bleeding on nexplanon. Urine negative. Elevated blood-pressure reading without diagnosis of hypertension [id number] R03.0 Discussed to purchase an otc blood pressure machine. Twice a day sit for 15 minutes with your legs uncrossed. After 15 minutes, check your blood pressure and record in a notebook.F /u with your PCP in 2 weeks and bring the notebook. [id number] Zoe Hopkins MD [facility] ([facility]) [address] [place] [address] [phone] 03/03/2025 13:59:44 03/10/2025 07:00:44 test positive 100169716 Z32.01 Gestation period, 10 weeks [id number] Z3A.10 I reviewed what to avoid in and the plan of care. Nausea [id number] R11.0 Patient states that she is adverse to taking any medication even Tylenol during . I educated her that I would rather her take prescribed medication and then use her marijuana for nausea. 03/03/2025 Marijuana user [id number] F12.90 I discussed risk of using marijuana during and advised complete cessation. 03/03/2025 Past pregn aaron history of section [id number] Z98.891 We discussed that the patient would be repeat section around 39 weeks gestation 03/03/2025 Body mass index 30+ - obesity [id number] E66.9 Along with her prior history of borderline preeclamps ia I advised that she do aspirin therapy. Patient was provided with a handout and instructed to start this around 12 weeks gestation. 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 03/03/2025 Electronic cigarette user 186133285 Z78.9 I discussed the risks of smoking in , including but not limited to: LBW, premature delivery and increased risk of miscarriag e and SIDS. I advised complete cessation 03/03/25 Health Concerns Section Related Observation LastModified by Organization Detai ls LastModified Time None Recorded Concern Status LastModified by Organization Details LastModified Time None Recorded Advance Directives Directive None Recorded Payers Insurance Date Sequence Insurance Name Policy Number Policy Man Covered Member ID Man Member ID Guarantor Name 03/20/2025 [place] [facility] Monika Khan [id number] Monika Khan 03/03/2025 1 [place] Monika Khan [id number] Monika Khan 03/20/2025 1 *SELF PAY* Simms rama Khan 03/03/2025 1 [place] [id number] Monika Khan [id number] Monika Khan 03/30/2025 1 [place] [id number] Monika Khan [id number] Monika Khan 03/20/2025 1 [place] Monika Khan [id number] Monika Khan Notes Date Note Type Note Provider Name and Address Organization Details Recorded Time 01/15/2024 text/html Upper Respirator y SymptomsReported bypatient.Location:[facility] [facility]; nasal Quality:congested;hurt s to swallow;nasal discharge Severity:mild Duration:symptoms lasting less than 2 weeks Onset/Timing:date of onset: (yesterday) Context:no sick contacts Associated Symptoms:no diarrhea; no headache;chest pain;difficulty breathing at night;fever;morning cough;sore throat;vomiting Patient is a 23 year old female who presents to the walk in clinic today for cough, sore throat, and low grade fevers. Patient was seen yesterday for an upper respiratory infection and was started on prednisone and albuterol. Reports she feels like she is getting worse. Patient does have asthma but does not use her Advair because it tastes chalky . Tmax of 100.1F last night. States she feels like she needs higher dose of steroids and an antibiotic. ALEXA REYNOLDS [address] [place] [address], [phone], [facility], [place] 01/15/2024 13:31:33 01/20/2024 text/html CoughReported bypatient.Quality:prod uctive Severity:worsening;rae n with cough; mild Duration:constant Associated Symptoms:fever;chills; wheezing;nasal dischargeNotes:Pt returns today with c/o continued cough. Was started on zyrtec and states that is not helping. She's using her inhaler during the day with no relief. Denies fever. MEENAKSHI CHILEL [address] [place] [address], [phone], [facility], [place] 01/20/2024 15:57:45 04/01/2024 text/html This is a 23-yea r-old that comes in today for concerns of positive test and the need to have her Nexplanon removed. Patient states that she had a positive test at home. Patient denies any other symptoms of . Michael Champagne MD [address] [place] [address], [phone], [facility], [place] 04/01/2024 14:08:20 07/02/2024 text/html [facility] menstrual bleeding for 3 weeks when on Nexplanon control. Patient wants to make sure that she is not . MEENAKSHI CHILEL [address] [place] [address], [phone], [facility], [place] 07/02/2024 15:55:59 OBGyn Episode Ob Episode Information Episode Created Date Number of Fetuses Patient Bloodtype Patient rh Status Prepregnancy Weight lbs Domestic Partner Domestic Partner Phone Father Name Department Head College Or University Status 03/03/20 25 1 OPEN Fetus Data First Name Last Name Admitted to NICU Weight (g) Sex Living Outcome Pediatric Complications Fetus ID Race Codes Race Delivery Type [id number] Issa Calculation Initial Issa Date Initial Exam Date Initial Exam Provider Initial Ultrasound Date Last Menstrual Period Date Ultra Sound Weeks Gestation 03/03/2025 12/20/2024 0 Eighteen To Twenty Week Issa Update Ultra Sound Date Fundal Height At Umbil Quickening Date Ultra Sound Latest Weeks Gestation Final Issa Confirmed By Final Issa Confirmed Date Final Issa Date Ultra Sound Latest Days Gestation 0 09/26/20 25 0 Pre- Flowsheet Flowsheet Date 03/03/2025 Muñoz Score Blood Edema Fundus Height Fundus Units Glucose Ketones Leukocytes Nitrite Labor Signs Protein Cervic Dilation Cervic Effacement Cervic Station Type Weight in lbs Pre/Post Dialysis Refused Weight 194.511022839251 BP Diastolic BP Location Tested BP Systolic BP Type 70 118 Fetus Heart Rate Present Fetus Movement Comments Menstrual History Last Menstrual Date Menses Monthly On Bcp Conception Prior Menses Frequency Hcg Plus Date Menarche Onset Age 0212/20/2024 false Genetic Screening And Infection History Question Response Note Patient's Age Will Be 35 Yea rs Or Older At Estimated Date of Delivery false Thalassemia (Lao, Citizen Of [place], Mediterranean, Or Background): MCV < 80 false Neural Tube Defect (Meningom yelocele, Spina Bifida, Or Anencephaly) false Congenital Heart Defect false Down Syndrome false Van-Sachs (eg, Baptist, Cajun, Qatari-Tristanian) f alse Heather Disease false Sickle Cell Disease Or Trait () false Hemophilia Or Other Blood Disorders false Muscular Dystrophy false Cystic Fibrosis false Hiren's Chorea false Intellectual Disability/Autism false If Yes, Was Person Tested For Fragile X? false Other Inherited Genetic Or Chromosomal Disorder false Maternal Metabolic Disorder (eg, Type 1 Diabetes , PKU) false Patient Or Baby's Father Had A Child With Defects Not Listed Above false Recurrent Loss, Or A Stillbirth false Medications (including Suppl ements, Vitamins, Herbs, OTC Drugs), Illicit/Recreational Drugs, Alcohol true marijuana If Yes, Agent(s) And Strength/Dosage false Any Other Genetic History false Live With Someone With TB Or Exposed To TB false Patient Or Partner Has History Of Genital Herpes false Rash Or Viral Illness Since Last Menstrual Perio d false History Of STD, Gonorrhea, Chlamydia, HPV, Syphi lis true Chlamydia Other Infection History false History of HIV false History of Hepatitis false Prior GBS-infected child false Hemoglobinopathy Or Carrier false Other Structural Defect false Recent Travel History Outside of Country false Mental Retardation/Autism false Delivery Information Delivery Date Delivery Type Labor Anesthesia Weeks Gestation Incision Type Labor Labor Length Hrs Delivered By Post Complications Tubal Sterilization Discharge Date Comments Discharge Information Feeding Method Contraceptive Method Maternal HG B and HCT Levels Ob Episode Information Episode Created Date Number of Fetuses Patient Bloodtype Patient rh Status Prepregnancy Weight lbs Domestic Partner Domestic Partner Phone Father Name Department Head College Or University Status 01/23/20 23 1 A Positive 206 [address] Gregory CLOSED Fetus Data First Name Last Name Admitted to NICU Weight (g) Sex Living Outcome Pediatric Complications Fetus ID Race Codes Race Delivery Type false F Full Term 209 Issa Calculation Initial Issa Date Initial Exam Date Initial Exam Provider Initial Ultrasound Date Last Menstrual Period Date Ultra Sound Weeks Gestation 06/24/2023 01/25/2023 09/17/2022 0 Eighteen To Twenty Week Issa Update Ultra Sound Date Fundal Height At Umbil Quickening Date Ultra Sound Latest Weeks Gestation Final Issa Confirmed By Final Issa Confirmed Date Final Issa Date Ultra Sound Latest Days Gestation 0 07/04/20 23 0 Pre- Flowsheet Flowsheet Date 01/25/2023 Muñoz Score Blood Edema Fundus Height Fundus Units Glucose Ketones Leukocytes Nitrite Labor Signs Protein Cervic Dilation Cervic Effacement Cervic Station none Type Weight in lbs Pre/Post Dialysis Refused With clothes 220.527075323934 BP Diastolic BP Location Tested BP Systolic BP Type 60 118 Fetus Heart Rate Present A 145 Fetus Movement A Yes Comments Flowsheet Date 02/15/2023 Muñoz Score Blood Edema Fundus Height Fundus Units Glucose Ketones Leukocytes Nitrite Labor Signs Protein Cervic Dilation Cervic Effacement Cervic Station Type Weight in lbs Pre/Post Dialysis Refused BP Diastolic BP Location Tested BP Systolic BP Type Fetus Heart Rate Present Fetus Movement Comments Flowsheet Date 02/15/2023 Muñoz Score Blood Edema Fundus Height Fundus Units Glucose Ketones Leukocytes Nitrite Labor Signs Protein Cervic Dilation Cervic Effacement Cervic Station none 21 cm Type Weight in lbs Pre/Post Dialysis Refused With clothes 209.945359860321 BP Diastolic BP Location Tested BP Systolic BP Type 70 L arm 138 sitting Fetus Heart Rate Present A 180 Fetus Movement A Yes Comments Flowsheet Date 03/19/2023 Muñoz Score Blood Edema Fundus Height Fundus Units Glucose Ketones Leukocytes Nitrite Labor Signs Protein Cervic Dilation Cervic Effacement Cervic Station neg none 25 cm none trace Negative trace Type Weight in lbs Pre/Post Dialysis Refused With clothes 219.697307845103 BP Diastolic BP Location Tested BP Systolic BP Type 50 L arm 144 sitting Fetus Heart Rate Present A 140 Fetus Movement A Yes Comments Flowsheet Date 04/11/2023 Muñoz Score Blood Edema Fundus Height Fundus Units Glucose Ketones Leukocytes Nitrite Labor Signs Protein Cervic Dilation Cervic Effacement Cervic Station Type Weight in lbs Pre/Post Dialysis Refused With clothes 225.950985530322 BP Diastolic BP Location Tested BP Systolic BP Type 82 R arm 152 sitting Fetus Heart Rate Present Fetus Movement Comments Flowsheet Date 04/19/2023 Muñoz Score Blood Edema Fundus Height Fundus Units Glucose Ketones Leukocytes Nitrite Labor Signs Protein Cervic Dilation Cervic Effacement Cervic Station neg none 30 cm none none neg Type Weight in lbs Pre/Post Dialysis Refused With clothes 0.0 BP Diastolic BP Location Tested BP Systolic BP Type 70 L arm 138 sitting Fetus Heart Rate Present Fetus Movement Comments Flowsheet Date 05/02/2023 Muñoz Score Blood Edema Fundus Height Fundus Units Glucose Ketones Leukocytes Nitrite Labor Signs Protein Cervic Dilation Cervic Effacement Cervic Station Type Weight in lbs Pre/Post Dialysis Refused BP Diastolic BP Location Tested BP Systolic BP Type Fetus Heart Rate Present Fetus Movement Comments Flowsheet Date 05/02/2023 Muñoz Score Blood Edema Fundus Height Fundus Units Glucose Ketones Leukocytes Nitrite Labor Signs Protein Cervic Dilation Cervic Effacement Cervic Station neg none 32 cm none none Uterine Contract ions neg Type Weight in lbs Pre/Post Dialysis Refused With clothes 233.225820938409 BP Diastolic BP Location Tested BP Systolic BP Type 60 L arm 132 sitting Fetus Heart Rate Present A 140 Fetus Movement A Yes Comments Flowsheet Date 05/16/2023 Muñoz Score Blood Edema Fundus Height Fundus Units Glucose Ketones Leukocytes Nitrite Labor Signs Protein Cervic Dilation Cervic Effacement Cervic Station neg 2+ 33.5 cm 2+ none trace Type Weight in lbs Pre/Post Dialysis Refused With clothes 236.135731351889 BP Diastolic BP Location Tested BP Systolic BP Type 70 L arm 152 sitting Fetus Heart Rate Present A 157 Fetus Movement A Yes Comments Flowsheet Date 05/25/2023 Muñoz Score Blood Edema Fundus Height Fundus Units Glucose Ketones Leukocytes Nitrite Labor Signs Protein Cervic Dilation Cervic Effacement Cervic Station neg trace 34 cm none none 2+ Type Weight in lbs Pre/Post Dialysis Refused With clothes 237.987672130341 BP Diastolic BP Location Tested BP Systolic BP Type 70 L arm 153 sitting Fetus Heart Rate Present A 165 Fetus Movement A Yes Comments Flowsheet Date 06/05/2023 Muñoz Score Blood Edema Fundus Height Fundus Units Glucose Ketones Leukocytes Nitrite Labor Signs Protein Cervic Dilation Cervic Effacement Cervic Station Type Weight in lbs Pre/Post Dialysis Refused BP Diastolic BP Location Tested BP Systolic BP Type Fetus Heart Rate Present Fetus Movement Comments Flowsheet Date 06/06/2023 Muñoz Score Blood Edema Fundus Height Fundus Units Glucose Ketones Leukocytes Nitrite Labor Signs Protein Cervic Dilation Cervic Effacement Cervic Station neg trace 37 cm none none 1+ Type Weight in lbs Pre/Post Dialysis Refused With clothes 238.82076621558 BP Diastolic BP Location Tested BP Systolic BP Type 90 L arm 176 sitting Fetus Heart Rate Present A 170 Fetus Movement A Yes Comments Flowsheet Date 06/13/2023 Muñoz Score Blood Edema Fundus Height Fundus Units Glucose Ketones Leukocytes Nitrite Labor Signs Protein Cervic Dilation Cervic Effacement Cervic Station neg trace 37 cm none none 1+ Type Weight in lbs Pre/Post Dialysis Refused With clothes 242.849236493455 BP Diastolic BP Location Tested BP Systolic BP Type 70 L arm 150 sitting Fetus Heart Rate Present A 180 Fetus Movement A Yes Comments Flowsheet Date 06/15/2023 Muñoz Score Blood Edema Fundus Height Fundus Units Glucose Ketones Leukocytes Nitrite Labor Signs Protein Cervic Dilation Cervic Effacement Cervic Station Type Weight in lbs Pre/Post Dialysis Refused BP Diastolic BP Location Tested BP Systolic BP Type Fetus Heart Rate Present Fetus Movement Comments [employer] and [employer] record s sent to [facility] L&D. tcg Flowsheet Date 06/18/2023 Muñoz Score Blood Edema Fundus Height Fundus Units Glucose Ketones Leukocytes Nitrite Labor Signs Protein Cervic Dilation Cervic Effacement Cervic Station neg none 38 cm none none neg 0cm 30% -3 Type Weight in lbs Pre/Post Dialysis Refused With clothes 245.783952011371 BP Diastolic BP Location Tested BP Systolic BP Type 78 L arm 148 sitting Fetus Heart Rate Present A 170 Fetus Movement A Yes Comments Flowsheet Date 10/01/2023 Muñoz Score Blood Edema Fundus Height Fundus Units Glucose Ketones Leukocytes Nitrite Labor Signs Protein Cervic Dilation Cervic Effacement Cervic Station Type Weight in lbs Pre/Post Dialysis Refused With clothes 207.606779154436 BP Diastolic BP Location Tested BP Systolic BP Type 74 L arm 130 sitting Fetus Heart Rate Present Fetus Movement Comments Menstrual History Last Menstrual Date Menses Monthly On Bcp Conception Prior Menses Frequency Hcg Plus Date Menarche Onset Age 1109/17/2022 true Genetic Screening And Infection History Question Response Note Patient's Age Will Be 35 Yea rs Or Older At Estimated Date of Delivery false Thalassemia (Lao, Citizen Of [place], Mediterranean, Or Background): MCV < 80 false Neural Tube Defect (Meningomyelocele, Spina Bifi da, Or Anencephaly) false Congenital Heart Defect false Down Syndrome false Van-Sachs (eg, Baptist, Cajun, Qatari-Tristanian) f alse Heather Disease false Sickle Cell Disease Or Trait () false Hemophilia Or Other Blood Disorders false Muscular Dystrophy false Cystic Fibrosis false Hiren's Chorea false Intellectual Disability/Autism false If Yes, Was Person Tested For Fragile X? false Other Inherited Genetic Or Chromosomal Disorder false Maternal Metabolic Disorder (eg, Type 1 Diabetes , PKU) false Patient Or Baby's Father Had A Child With Defects Not Listed Above false Recurrent Loss, Or A Stillbirth false Medications (including Suppl ements, Vitamins, Herbs, OTC Drugs), Illicit/Recreational Drugs, Alcohol false If Yes, Agent(s) And Strength/Dosage false Any Other Genetic History false Live With Someone With TB Or Exposed To TB false Patient Or Partner Has History Of Genital Herpes false Rash Or Viral Illness Since Last Menstrual Perio d false History Of STD, Gonorrhea, Chlamydia, HPV, Syphi lis true chlamdia Other Infection History false History of HIV false History of Hepatitis false Prior GBS-infected child false Hemoglobinopathy Or Carrier false Other Structural Defect false Recent Travel History Outside of Country false Mental Retardation/Autism false Plans and Education First Trimester Discussed Date Discussion Item Discussion Note Discuss ed By 01/25/2023 Exercise dcrase 01/25/2023 Illicit/recreational drugs d crase 01/25/2023 Weight gain counseling dcras e 01/25/2023 Use of any medicatio ns (including supplements, vitamins, herbs, or OTC drugs) dcrase 01/25/2023 Avoidance of saunas or hot tubs dcrase 01/25/2023 Tobacco/smoking cess ation counseling (ask, advise, assess, assist, and arrange) dcrase 01/25/2023 Alcohol dcrase 01/25/2023 Travel dcrase Second Trimester Discussed Date Discussion Item Discussion Note Discuss ed By 02/15/2023 Signs and symptoms of labor dcrase 04/19/[address] anning/tubal sterilization dcrase 04/19/2023 Selecting a care provider dcrase Third Trimester Discussed Date Discussion Item Discussion Note Discuss ed By 04/19/2023 Signs and symptoms of preeclampsia dcrase 04/19/2023 movement monitoring dc grisel 04/19/2023 Labor signs dcrase Delivery Information Delivery Date Delivery Type Labor Anesthesia Weeks Gestation Incision Type Labor Labor Length Hrs Delivered By Post Complications Tubal Sterilization Discharge Date Comments 3 Induce d Regional-Ep idural 39.2 Low Transvers Michael King MD Other Failure to progress Discharge Information Feeding Method Contraceptive Method Maternal HG B and HCT Levels
[2025-04-24 19:23] VITALS: BP 131/62; PULSE 86; RESP 16; TEMP 37; O2SAT 98; BMI 32.6
--- NOTE | 2025-04-24 20:26 | ECG_ITS ---
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
[2025-04-24 20:51] LABS: Bilirubin Urine Negative (Negative); Blood Urine Negative (Negative); Glucose Urine UA Trace (Normal); Ketones Urine Trace (Negative); Leukocyte Esterase Urine Negative (Negative); Nitrate Urine Negative (Negative); Protein Urine 1+ (Negative); Urine Appearance Cloudy (CLEAR); Urine Color Dark Yellow (Yellow); pH Urine 5.5 (5-7)
[2025-04-24] MEDS: sodium chloride 0.9% 1,000 ML 999 ML IV (20:51)
[2025-04-24 20:52] VITALS: BP 117/57; PULSE 82; RESP 18; O2SAT 98
[2025-04-24 20:54] LABS: Bacteria Urine Trace /hpf; Hyaline Casts Urine 14.06 /lpf; RBC Urine 0-2 /hpf (0-2)
[2025-04-24 21:04] LABS: Basophils % 0.3 %; Eosinophils # 0.1 10^3/uL (0.0-0.8); Eosinophils % 0.5 %; Hematocrit 31.5 % (36-47); Lymphocytes # 1.7 10^3/uL (0.8-4.8); Lymphocytes % 14.2 %; Mean Corpuscular HGB Conc 32.1 g/dL (30-55); Mean Corpuscular Hemoglobin 19.8 pg (27-33); Mean Corpuscular Volume 61.8 fl (85-98); Monocytes # 0.5 10^3/uL (0.2-0.9); Monocytes % 4.4 %; Neutrophils # 9.37 10^3/uL (1.8-7.7); Neutrophils % 79.9 %; Nucleated Red Blood Cells % 0 %; Platelet Count 289 10^3/cmm (157-399); Red Cell Distribution Width 17.3 % (12.1-15.1); White Blood Count 11.72 10^3/uL (3.29-11.43)
[2025-04-24 21:04] LABS: Mucus Urine 1+ /hpf; Specific Gravity, Urine 1.032 (1.005-1.030); UA Slide Review UA Slide Review Perf
[2025-04-24 21:22] LABS: Alanine Aminotransferase 13 U/L (0-33); Albumin Level 4.5 g/dL (3.5-5.2); Alkaline Phosphatase 77 U/L (35-105); Anion Gap 15.7 (5-19); Aspartate Amino Transferase 16 U/L (0-32); Blood Urea Nitrogen 5 mg/dL (6-20); Carbon Dioxide 22 mmol/L (22-29); Chloride 102 mmol/L (98-107); Globulin 2.8 g/dL (1.3-4.6); Glomerular Filtration Rate 199.6 mL/min (90-130); Glucose 76 mg/dL (65-115); Osmolality Calculated 278 mOsm/kg (285-295); Potassium 3.7 mmol/L (3.5-5.1); Sodium 136 mmol/L (136-145); Total Bilirubin 0.8 mg/dL (0.15-1.2); Total Protein 7.3 g/dL (6.6-8.7)
[2025-04-24 22:47] VITALS: BP 121/58; PULSE 76; RESP 16; O2SAT 98
--- NOTE | 2025-04-25 06:11 | ED_ITS ---
HPI - Dizziness 2 General: Chief Complaint: Dizziness Stated Complaint: almost passed out feels weak. 12 wk preg Time Seen by Provider: 04/24/25 20:20 History of Present Illness: HPI Narrative: Patient is a individual, currently 12 weeks and will be 13 weeks tomorrow, presenting with dizziness and an episode of almost passing out this morning. Reports significant nausea and vomiting described as morning sickness that has persisted all day since becoming , which did not occur with previous . Zofran at home has not been effective. Denies chest pain, shortness of breath, fever, cough, or diarrhea. No vaginal bleeding or cramping, but reports chronic vaginal discharge since the start of , which is unchanged and not associated with concern for STDs. No known heart problems. History of hypertension during prior , with monitoring for preeclampsia previously. Expresses anxiety about current symptoms and requests an ultrasound for reassurance regarding well-being. Related Data Previous Rx's ?Medication ?Instructions ?Recorded metoclopramide HCl 5 mg tablet 5 mg PO DAILY #30 tabs 03/11/25 (Reglan) Allergies Allergy/AdvReac Type Severity Reaction Status Date / Time bupropion (From Wellbutrin) Allergy Intermediate ALGY-Hives Verified 04/06/25 08:23 fluoxetine (From Prozac) Allergy ALGY-Hives Verified 04/06/25 08:23 PFSH ED 2 PFSH: Medical History Gestational hypertension without significant proteinuria during in third trimester, antepartum ADHD (attention deficit hyperactivity disorder) Asthma GERD (gastroesophageal reflux disease) Surgical History Status post laparoscopic cholecystectomy (03/15/20) Hx of tonsillectomy Family History Family/Other Diabetes Great Grandmother Grandmother Thyroid disease Maternal and Paternal Hypertension Denies family history of Colon cancer Ovarian cancer Prostate cancer Heart disease Hypercholesteremia Hyperlipidemia Breast cancer Bleeding disorder Uterine cancer Stroke Social History Smoking and tobacco/nicotine status: never used tobacco/nicotine Quit status (tobacco/nicotine): has tried quititng Number of times tried to quit tobacco: 1 Second hand smoke exposure: Yes Alcohol intake: never Substance/Drug Use: never Additional social history: .- Tobacco use: currently smokes 3 cigarettes per day Alcohol use: socially Drug use: Marijuana-- last smoked 08/2020 Physical Exam 2 Const: COMMON NORMALS: no acute distress, patient oriented x3 and alert HENMT: COMMON NORMALS: normocephalic and atraumatic HEAD & SCALP: n ormocephalic and atraumatic Eye: COMMON NORMALS: Equal, round and reactive pupils present, EOMs intact bilaterally and no scleral icterus PUPIL: Yes Equal, round and reactive pupils present Resp: COMMON NORMALS: normal respiratory effort and No retractions Cardio: COMMON NORMALS: regular rate, regular rhythm and No murmurs present (Cardio) RATE: regular rate RHYTHM: regular rhythm GI: COMMON NORMALS: Normal to inspection, nondistended, normoactive bowel sounds present, Soft to palpation and non-tender PALPATION: Yes Soft to palpation Neuro: COMMON NORMALS: patient oriented x3 SENSORIUM/ORIENTATION: Yes alert Skin: COMMON NORMALS: no rashes or lesions noted GENERAL SKIN EXAM: no rashes or lesions noted Course 2 Vital Signs: Vital signs: Vital Signs Temperature 98.6 F 04/24/25 19:23 Pulse Rate 76 04/24/25 22:47 Respiratory Rate 16 04/24/25 22:47 Blood Pressure 121/58 04/24/25 22:47 Pulse Oximetry 98 04/24/25 22:47 Oxygen Delivery Me thod Room Air 04/24/25 19:23 MDM - Dizziness Medical Decision Making Bedside ultrasound shows a single viable intrauterine . Labs are unremarkable. EKG shows nothing acute. Patient feels better after IV fluids. vital signs are stable. She will be discharged in stable and improved condition with follow-up primary care as needed. Lab Data 04/24/25 20:55 04/24/25 20:55 Laboratory Results WBC 11.72 10^3/uL (3.29-11.43) H 04/24/25 20:55 RBC 5.10 10^6/uL (3.85-5.65) 04/24/25 20:55 Hgb 10.10 g/dL (11.27-16.99) L 04/24/25 20:55 Hct 31.5 % (36-47) L 04/24/25 20:55 MCV 61.8 fl (85-98) L 04/24/25 20:55 MCH 19.8 pg (27-33) L 04/24/25 20:55 MCHC 32.1 g/dL (30-55) 04/24/25 20:55 RDW 17.3 % (12.1-15.1) H 04/24/25 20:55 Plt Count 289 10^3/cmm (157-399) 04/24/25 20:55 MPV Not Reportable 04/24/25 20:55 Neut % (Auto) 79.9 % 04/24/25 20:55 Lymph % (Auto) 14.2 % 04/24/25 20:55 [place] % (Auto) 4.4 % 04/24/25 20:55 Eos % (Auto) 0.5 % 04/24/25 20:55 Baso % (Auto) 0.3 % 04/24/25 20:55 Neut # (Auto) 9.37 10^3/uL (1.8-7.7) H 04/24/25 20:55 Lymph # (Auto) 1.7 10^3/uL (0.8-4.8) 04/24/25 20:55 [place] # (Auto) 0.5 10^3/uL (0.2-0.9) 04/24/25 20:55 Eos # (Auto) 0.1 10^3/uL (0.0-0.8) 04/24/25 20:55 Baso # (Auto) 0.0 10^3/uL (0.0-0.1) 04/24/25 20:55 Nucleated RBC % (auto) 0 % 04/24/25 20:55 Nucleated RBCs # 0.0 /100WBC 04/24/25 20:55 Sodium 136 mmol/L (136-145) 04/24/25 20:55 Potassium 3.7 mmol/L (3.5-5.1) 04/24/25 20:55 Chloride 102 mmol/L (98-107) 04/24/25 20:55 Carbon Dioxide 22 mmol/L (22-29) 04/24/25 20:55 Anion Gap 15.7 (5-19) 04/24/25 20:55 BUN 5 mg/dL (6-20) L 04/24/25 20:55 Creatinine 0.4 mg/dL (0.5-0.9) L 04/24/25 20:55 GFR Calculation 199.6 mL/min (90-130) H 04/24/25 20:55 Glucose 76 mg/dL (65-115) 04/24/25 20:55 Calculated Osmolality 278 mOsm/kg (285-295) L 04/24/25 20:55 Calcium 10.0 mg/dL (8.5-10.5) 04/24/25 20:55 Total Bilirubin 0.8 mg/dL (0.15-1.2) 04/24/25 20:55 AST 16 U/L (0-32) 04/24/25 20:55 ALT 13 U/L (0-33) 04/24/25 20:55 Alkaline Phosphatase 77 U/L (35-105) 04/24/25 20:55 Total Protein 7.3 g/dL (6.6-8.7) 04/24/25 20:55 Albumin 4.5 g/dL (3.5-5.2) 04/24/25 20:55 Globulin 2.8 g/dL (1.3-4.6) 04/24/25 20:55 Urine Color Dark yellow (Yellow) A 04/24/25 20: Urine Appearance Cloudy (CLEAR) A 04/24/25 20:07 Urine pH 5.5 (5-7) 04/24/25 20:07 Ur Specific [place] 1.032 (1.005-1.030) H 04/24/25 20:07 Urine Protein 1+ (Negative) A 04/24/25 20:07 Urine Glucose (UA) Trace (Normal) H 04/24/25 20:07 Urine Ketones Trace (Negative) 04/24/25 20:07 Urine Blood Negative (Negative) 04/24/25 20: Urine Nitrate Negative (Negative) 04/24/25 20: Urine Bilirubin Negative (Negative) 04/24/25 20: Urine Urobilinogen 1.0 mg/dL (Negative) 04/24/25 20:07 Ur Leukocyte Esterase Negative (Negative) 04/24/25 20:07 Urine RBC 0-2 /hpf (0-2) 04/24/25 20:07 Urine WBC 11-20 /hpf (0-5) H 04/24/25 20:07 Ur Squamous Epith Cells 11-20 /hpf (0-5) H 04/24/25 20:07 Calcium Oxalate Crystal 10-15 /hpf H 04/24/25 20:07 Amorphous Sediment Not Reportable 04/24/25 20:07 Urine Bacteria Trace /hpf (NONE) 04/24/25 20:07 Hyaline Casts 14.06 /lpf 04/24/25 20:07 Urine Mucus 1+ /hpf 04/24/25 20:07 No radiology studies performed this visit Discharge Plan Discharge Patient Disposition: Home Clinical Impression: Light-headedness Condition: Stable Prescriptions: No Action metoclopramide HCl [Reglan] 5 mg tablet 5 mg PO DAILY Qty: 30 2RF Rx Instructions: take one tab daily Discharge Orders: Discharge ED (Routine); Ordered 04/24/25 Ordered By: Roman Cole Discharge Diet: Advance as tolerated Discharge Activity: Increase activity as tolerated Patient Instructions: Nausea and Vomiting in (ED), Patient Portal & [facility] Instructions Activity Restrictions/Additional Instructions: Ultrasound of baby is reassuring. Baby has a good heart rate and is active. Your blood tests and urine test are reassuring. Your EKG is also reassuring. Please stay well-hydrated and take Zofran as needed for nausea and vomiting Print Language: Arabic Coding Level of Care Code ED [employer] Supervisor for Rachel Shannon
== END 2025-04-24 22:48 | disposition home or self-care (01) ==
PROVIDERS: Emergency Provider Student in an Organized Health Care Education/Training Program
DX: O26.891 Other specified pregnancy related conditions, first trimester (principal); Z3A.12 12 weeks gestation of pregnancy; Z87.891 Personal history of nicotine dependence; R42 Dizziness and giddiness
CPT/HCPCS: 80053; 81001; 85025; 93005; 99284; J7030

== ENCOUNTER → 2025-05-06 12:56 | Outpatient (BNVA) | payer BC, MEDICAID, SELFPAY | PROVIDERS: Visit Provider Obstetrics & Gynecology | DX: Z34.90 Encounter for supervision of normal pregnancy, unspecified, unspecified trimester (principal) | CPT/HCPCS: 84315; 88175 ==

== ENCOUNTER → 2025-06-15 09:32 | Outpatient (BNVA) | payer BC, MEDICAID, SELFPAY | PROVIDERS: Visit Provider Obstetrics & Gynecology | DX: Z36.9 Encounter for antenatal screening, unspecified (principal) | CPT/HCPCS: 76805 ==

== ENCOUNTER 2025-06-17 19:45 | Outpatient (CLI) | payer BC, MEDICAID, SELFPAY ==
[2025-06-17 20:00] VITALS: BMI 33.4
[2025-06-17 20:02] VITALS: BP 114/59; PULSE 90
[2025-06-17 20:16] VITALS: BP 116/57; PULSE 96
[2025-06-17 20:31] VITALS: BP 113/61; PULSE 93
[2025-06-17 20:45] VITALS: BP 113/61; PULSE 95; RESP 16; TEMP 35.9; O2SAT 98
== END 2025-06-17 20:50 | disposition home or self-care (01) ==
LOC: OPOB 19:57 → OBGYN 19:58
PROVIDERS: Visit Provider Obstetrics & Gynecology
DX: O26.899 Other specified pregnancy related conditions, unspecified trimester (principal); Z3A.00 Weeks of gestation of pregnancy not specified; R51.9 Headache, unspecified; R60.9 Edema, unspecified; M54.9 Dorsalgia, unspecified
CPT/HCPCS: 99211

== ENCOUNTER 2025-06-22 15:00 | Outpatient (CLI) | payer BC, MEDICAID, SELFPAY ==
[2025-06-22 15:15] VITALS: BP 128/65; PULSE 98
[2025-06-22 15:19] VITALS: RESP 18; BMI 33.8
[2025-06-22 16:14] LABS: Glucose Urine UA Trace (Normal); Nitrate Urine Negative (Negative); Specific Gravity, Urine 1.021 (1.005-1.030)
[2025-06-22 16:25] VITALS: BP 108/56; PULSE 90
== END 2025-06-22 16:43 | disposition home or self-care (01) ==
LOC: OPOB 15:03 → OBGYN 15:04
PROVIDERS: Visit Provider Obstetrics & Gynecology
DX: O26.899 Other specified pregnancy related conditions, unspecified trimester (principal); Z3A.00 Weeks of gestation of pregnancy not specified; R10.9 Unspecified abdominal pain
CPT/HCPCS: 59025; 81001; 99211

== ENCOUNTER → 2025-06-24 14:55 | Outpatient (BNVA) | payer BC, MEDICAID, SELFPAY | PROVIDERS: Visit Provider Obstetrics & Gynecology | DX: Z34.90 Encounter for supervision of normal pregnancy, unspecified, unspecified trimester (principal) | CPT/HCPCS: 84315 ==

== ENCOUNTER 2025-06-25 20:37 | Outpatient (CLI) | payer BC, MEDICAID, SELFPAY ==
[2025-06-25 20:56] VITALS: BP 122/68; PULSE 99
[2025-06-25 20:58] VITALS: TEMP 36.1; BMI 32.5
[2025-06-25 21:06] VITALS: BP 121/56; PULSE 87; TEMP 36.1
[2025-06-25 21:22] VITALS: BP 122/68; PULSE 99; RESP 16; TEMP 36.1; O2SAT 99
== END 2025-06-25 21:14 | disposition home or self-care (01) ==
LOC: OPOB 20:41 → OBGYN 20:42
PROVIDERS: Visit Provider Obstetrics & Gynecology
DX: O36.8190 Decreased fetal movements, unspecified trimester, not applicable or unspecified (principal); Z3A.00 Weeks of gestation of pregnancy not specified
CPT/HCPCS: 99211

== ENCOUNTER 2025-07-09 13:27 | Outpatient (CLI) | payer BC, MEDICAID, SELFPAY ==
[2025-07-09 13:25] VITALS: BMI 38.9
[2025-07-09 13:46] VITALS: BP 107/59; PULSE 115
[2025-07-09 14:01] VITALS: BP 106/56; PULSE 102
[2025-07-09 14:08] LABS: Glucose Urine UA Negative (Normal); Nitrate Urine Negative (Negative); Specific Gravity, Urine 1.018 (1.005-1.030)
[2025-07-09 14:16] VITALS: BP 105/59; PULSE 104
[2025-07-09 14:31] VITALS: BP 107/58; PULSE 99
== END 2025-07-09 14:48 | disposition home or self-care (01) ==
LOC: OPOB 13:27 → OBGYN 13:34
PROVIDERS: Visit Provider Obstetrics & Gynecology
DX: O26.859 Spotting complicating pregnancy, unspecified trimester (principal); Z3A.00 Weeks of gestation of pregnancy not specified; W19.XXXA Unspecified fall, initial encounter
CPT/HCPCS: 81001; 87086; 99211

== ENCOUNTER 2025-07-11 21:53 | Outpatient (CLI) | payer BC, MEDICAID, SELFPAY ==
[2025-07-11] VITALS (7 sets, daily range): BP systolic 97–147; BP diastolic 50–60; PULSE 106–112
[2025-07-11 22:16] LABS: Glucose Urine UA Negative (Normal); Nitrate Urine Positive (Negative); Specific Gravity, Urine 1.025 (1.005-1.030)
[2025-07-11 22:54] LABS: UA Slide Review UA Slide Review Perf
[2025-07-12] VITALS: BP 110/56; PULSE 108; RESP 16
[2025-07-12 00:04] VITALS: BP 111/53; PULSE 107
[2025-07-12 00:19] VITALS: BP 110/56; PULSE 108
== END 2025-07-12 00:24 | disposition home or self-care (01) ==
LOC: OPOB 21:54 → OBGYN 21:55
PROVIDERS: Visit Provider Obstetrics & Gynecology
DX: O26.899 Other specified pregnancy related conditions, unspecified trimester (principal); Z3A.00 Weeks of gestation of pregnancy not specified; R10.9 Unspecified abdominal pain; M54.9 Dorsalgia, unspecified
CPT/HCPCS: 81001; 87086; 99211; J0690

== ENCOUNTER → 2025-07-15 14:47 | Outpatient (BNVA) | payer BC, MEDICAID, SELFPAY | PROVIDERS: Visit Provider Obstetrics & Gynecology | DX: Z34.90 Encounter for supervision of normal pregnancy, unspecified, unspecified trimester (principal) | CPT/HCPCS: 84315 ==

== ENCOUNTER → 2025-08-12 15:46 | Outpatient (BNVA) | payer BC, MEDICAID, SELFPAY | PROVIDERS: Visit Provider Obstetrics & Gynecology | DX: Z34.93 Encounter for supervision of normal pregnancy, unspecified, third trimester (principal); Z3A.28 28 weeks gestation of pregnancy | CPT/HCPCS: 82950; 84315; 85025 ==

== ENCOUNTER 2025-08-20 12:00 | Outpatient (CLI) | payer BC, MEDICAID, SELFPAY ==
[2025-08-20 12:12] VITALS: BP 136/59; PULSE 93
[2025-08-20 12:14] VITALS: RESP 16
[2025-08-20 12:15] VITALS: BMI 35.5
[2025-08-20 12:24] LABS: Glucose Urine UA Negative (Normal); Nitrate Urine Negative (Negative); Specific Gravity, Urine 1.020 (1.005-1.030)
[2025-08-20 12:28] VITALS: BP 119/54; PULSE 98
[2025-08-20 12:38] LABS: UA Slide Review UA Slide Review Perf
[2025-08-20 12:42] VITALS: BP 107/51; PULSE 89
[2025-08-20 12:50] VITALS: BP 107/51; PULSE 89; RESP 16
== END 2025-08-20 12:51 | disposition home or self-care (01) ==
LOC: OPOB 12:02 → OBGYN 12:03
PROVIDERS: Visit Provider Obstetrics & Gynecology
DX: O26.899 Other specified pregnancy related conditions, unspecified trimester (principal); Z3A.00 Weeks of gestation of pregnancy not specified; M54.9 Dorsalgia, unspecified
CPT/HCPCS: 59025; 81001; 87086; 99211

== ENCOUNTER 2025-08-21 14:08 | Emergency (ER) | payer BC, MEDICAID, SELFPAY ==
[2025-08-21 14:08] VITALS: BP 116/73; PULSE 112; RESP 18; TEMP 36.7; O2SAT 99
--- OUTSIDE RECORDS SUMMARY | 2025-08-21 14:13 | XMS_ITS | Data Portability ---
Author Organization [facility], .[facility], [facility] Address [address] [facility] [address] [place] [address] Assessment No assessment recorded. Plan of Treatment Reminders Order Date Submit Date Provider Last Modified By Organization Details Last Modified Time Details Appointments None recorded. Lab respiratory pathogens DNA and RNA panel, PCR, nasopharynx 2024 025 [facility] ([facility]), [address] [place] [address], [phone], 5 15:21:37 test, urine 2023 024 [facility] ([facility]), [address] [place] [address], [phone], 4 14:31:16 Referral None recorded. Procedures None recorded. Surgeries None recorded. Imaging US, obstetric, 1st trimester - in 1-2 weeks [address] ([facility]), [address] [place] [address], [phone], 5 07:00:44 Medication Orders ondansetron HCl 4 mg tablet 2024 025 [facility], [address], [place], [address], 5 14:45:41 azithromyci n 250 mg tablet [address] [place] [address] Pharmacy 15, [address], [place], [address], 12:32:54 Patient TargetsNo targets recorded. Patient InstructionsNo instructions recorded. Reason for Referral None Reported. Results Created Date Observation Date Name Description Value Unit Range Abnormal Flag Note LastModifiedBy Organization Detail LastModifiedTime 01/15/2001/15/2024 rapid flu (A+B) , PCR Influenza A negati ve Not Available [facility] ([facility]) [address] [place], [address], 01/15/2024 13:01:25 01/15/20 24 01/15/2024 rapid flu (A+B) , PCR Influenza B negati ve Not Available [facility] ([facility]) [address] [place], [address], 01/15/2024 13:01:25 04/01/20 24 04/01/2024 pregn aaron test, urine HCG negati ve Not Available [facility] ([facility]) [address] [place], [address], 04/01/2024 12:57:34 07/02/20 24 07/02/2024 pregn aaron test, urine HCG negati ve Not Available [facility] ([facility]) [address] [place], [address], 07/02/2024 14:10:13 07/01/2007/01/2025 respi rator y patho gens DNA and RNA panel , PCR, nasop haryn x Covid positi ve Not Available [facility] ([facility]) [address] [place], [address], 07/01/2025 14:55:09 07/01/20 25 07/01/2025 respi rator y patho gens DNA and RNA panel , PCR, nasop haryn x Rhinovirus negati ve Not Available [facility] ([facility]) [address] [place], [address], 07/01/2025 14:55:09 07/01/20 25 07/01/2025 respi rator y patho gens DNA and RNA panel , PCR, nasop haryn x Influenza A negati ve Not Available [facility] ([facility]) [address] [place], [address], 07/01/2025 14:55:09 07/01/20 25 07/01/2025 respi rator y patho gens DNA and RNA panel , PCR, nasop haryn x Influenza B negati ve Not Available [facility] ([facility]) [address] [place], [address], 07/01/2025 14:55:09 07/01/20 25 07/01/2025 respi rator y patho gens DNA and RNA panel , PCR, nasop haryn x RSV negati ve Not Available [facility] ([facility]) [address] [place] [address], [address], 07/01/2025 14:55:09 Result Notes None recorded. Problems Name Problem SNOMED Code Status Onset Date Resolution Date Notes Provider Name and Address Organization Details Recorded Time Asthma 693389403 Active 2022 ASTHMA; Impressio n: patient has intermitt ent issues with her asthma. refill provided for albuterol .; Recorded 3 9:10AM by Jonna Barbosa, Office Visit; Promoted; acuity set as *; JOSE varner [facility] 3 11:43:06 Chlamydi al infectio n 769252259 Active 2022 CHLAMYDIA ; Recorded 3 10:31AM by David Talamantes l Summary; Promoted; acuity set as *; GAEL varner [facility] 5 14:12:34 Attentio n deficit hyperact ivity disorder 781183595 Active 2022 ADHD; Impressio n: managed by [facility]; Recorded 3 9:10AM by Jonna Barbosa, Office Visit; Promoted; acuity set as *; JOSE DIONNENathaly varner [facility] 3 11:43:06 Anxiety state 141151866 Active 2022 ANXIETY AND DEPRESSIO N; Impressio n: managed by [facility]; Recorded 3 9:10AM by Jonna Barbosa, Office Visit; Promoted; acuity set as *; JOSE varner [facility] 3 11:43:06 Pregnanc y 44117322 Completed 202210/01/2023 GAEL varner [facility] 5 14:07:20 Hypergly cemia 05455541 Active 2022 JOSE varner, [facility] 3 11:43:06 Proteinu jessy 29639135 Active 2022 JOSE varner [facility] 3 11:43:06 Pregnanc y-induce d hyperten michael 75121090 Active 2022 JOSE varner [facility] 3 11:43:06 Mixed anxiety and depressi ve disorder 394581811 Active 2022 GAEL varner, [facility] 5 14:13:43 Moderate ly severe recurren t major depressi on 691634589 Active 2022 GAEL varner [facility] 5 14:13:48 Low back pain 952833123 Active 2023 GAEL CRUZ [facility] LPreetLP[facility]CP[facility] 5 14:13:37 Pregnanc y 57973790 Active 2024 GAEL CRUZ telly [facility], LEzequielCPreet 5 14:07:20 Problem Notes None recorded. Procedures Surgical History Date Name Laterality Status Provider Name and Address Organization Details Recorded Time 4 Nexplanon Insertion completed Michael Champagne MD [address] [place] [address], [phone], [facility], [facility] 12/17/2023 12:00:03 3 section completed GAEL CRUZ [facility], Brandy 03/03/2025 14:16:05 Imaging Results None recorded. Procedure Notes None recorded. Medical Equipment None Reported. Allergies Allergen ID Allergen Name Allergen Category Reaction Reaction Severity Criticality Documentation Date Start Date Code Code System Note Provider Name and Address Organization Details Recorded Time 45746 Prozac medicatio n rash mild low 05/26/2023 61372 RxNorm Lita Mclain [facility], [facility] 4 13:04:21 741 Wellbutri n medicatio n rash mild low 01/25/2023 14496 RxNorm Lita [facility], Brandy 4 13:04:28 Medications Name Sig Start [...] Visit; Not Available Not Available Not Available duloxetin e active Not Available Not Available Not Available guanfacin [...] Heart rate Respiratory rate Body temperature Systolic And Diastolic Provider Name and Address Organization Details Last Updated DateTime 4 154.94 cm 38.2 kg/m2 17567.6 6 g 98 % 98 % 115 /min 16 /min 97.4 [degF] 148/80 mm[Hg] Elyse Martinez [facility] 4 14:15:20 Date Recorded Body height Body mass index (BMI) Body weight Body temperature Oxygen saturation Oxygen saturation in Arterial blood by Pulse oximetry Heart rate Systolic And Diastolic Provider Name and Address Organization Details Last Updated DateTime 5 154.94 cm 36.7 kg/m2 24311.9 2 g 98.4 [degF] 99 % 99 % 98 /min 118/70 mm[Hg] GAEL CRUZ [facility] 5 14:06:24 Date Recorded Body height Body mass index (BMI) Body weight Body temperature Oxygen saturation Oxygen saturation in Arterial blood by Pulse oximetry Heart rate Systolic And Diastolic Provider Name and Address Organization Details Last Updated DateTime 4 154.94 cm 36.9 kg/m2 74737.2 1 g 97.7 [degF] 99 % 99 % 84 /min 137/84 mm[Hg] JONNA BARBOSA [facility] 4 12:32:40 Date Recorded Body height Body mass index (BMI) Body weight Oxygen saturation Oxygen saturation in Arterial blood by Pulse oximetry Heart rate Body temperature Systolic And Diastolic Provider Name and Address Organization Details Last Updated DateTime 5 154.94 cm 33.1 kg/m2 63580.6 6 g 95 % 95 % 72 /min 98.2 [degF] 110/64 mm[Hg] Lea Nicole [facility] 5 14:54:16 Date Recorded Body height Body mass index (BMI) Body weight Oxygen saturation Oxygen saturation in Arterial blood by Pulse oximetry Heart rate Respiratory rate Body temperature Systolic And Diastolic Provider Name and Address Organization Details Last Updated DateTime 154.94 cm 36.7 kg/m2 29245.9 2 g 98 % 98 % 97 /min 16 /min 98.5 [degF] 170/100 mm[Hg] Elyse Martinez [facility] 14:09:13 Social History Question Answer Notes LastModified by [employer] Details LastModified Time Tobacco Smoking Status Current Every Day Smoker polly CRUZ [facility] 03/03/2025 14:15:45 Are You Blind Or Do You Have Difficulty Seeing? No Information not available 01/22/2023 What Is Your Level Of Caffeine Consumption? Occasional Information not available 01/22/2023 Are You Deaf Or Do You Have Serious Difficulty Hearing? No Information not available 01/22/2023 What Was The Date Of Your Most Recent Tobacco Screening? 07/01/2025 [email or web address] Information not available 07/01/2025 What Is Your Relationship Status? Single Information not available 01/22/2023 Are You Sexually Active? Yes Information not available 01/22/2023 Have You Recently Traveled Abroad? No Information not available 01/22/2023 Do You Have Difficulty Walking Or Climbing Stairs? No Information not available 01/22/2023 Sex: Unknown Functional Status Question Answer Note LastModified by [employer] Details LastModified Time Do you use any illicit or recreational drugs? No Information not available 01/22/2023 What is your level of alcohol consumption? None Information not available 01/22/2023 Do you have transportation difficulties? No Information not available 01/22/2023 What is your status? Information no t available 01/22/2023 Are you able to walk independently without assistance or assistive devices? YESWOREST Information not available 01/22/2023 Do you have difficulty doing errands alone? No Information not available 01/22/2023 Are you able to care for yourself independently? Yes Information not available 01/22/2023 Do you have difficulty dressing, bathing, grooming, or toileting? No Information not available 01/22/2023 Mental Status Question Answer Note LastModified by Organization D etails LastModified Time Do you have difficulty concentrating, remembering or making decisions? No Information no t available 01/22/2023 Family History Relationship Description Onset Age of this Age Resolved Age Notes LastModified by Organization Details LastModified Time Maternal Grandmother Hypertensive disorder Not available 03/2025 14:15:26 Notes:HTN: grandma Medical [...] MCV4, unspecified formulation 6 completed Not Available [facility] 12/14/2023 11:57:39 IPV 3 completed JOSE varner [facility] 05/02/2023 13:49:57 IPV 3 completed JOSE varner [facility] 05/02/2023 13:49:57 MMR 4 completed JOSE varner [facility] 05/02/2023 13:49:57 MMRV 7 completed JOSE varner [facility] 05/02/2023 13:49:57 Influenza, split virus, trivalent, preservative 1 completed JOSE varner [facility] 05/02/2023 13:49:57 Hep B, adolescent or pediatric 3 completed JOSE varner [facility] 05/02/2023 13:49:57 Hib ([facility]) 3 completed JOSE MORRISONG null, [facility] 05/02/2023 13:49:57 Hib (HbOC) 4 completed JOSE MORRISONG null, [facility] 05/02/2023 13:49:57 Hib (HbO) 3 completed JOSE DIONNE null, [facility] 05/02/2023 13:49:57 DTaP 3 completed JOSE DIONNE null, [facility] 05/02/2023 13:49:57 DTaP 4 completed JOSESA TRUONG null, [facility] 05/02/2023 13:49:57 DTaP 3 completed JOSE DIONNE null, [facility] 05/02/2023 13:49:57 DTaP-Hep B-IPV 7 completed JOSESA TRUONG null, [facility] 05/02/2023 13:49:57 Tdap 3 completed Michael Champagne MD [address] [place] [address], [address], [facility] 03/19/2023 15:05:51 Past Encounters Encounter ID Performer Location Encounter Start Date Encounter Closed Date Diagnosis/Indication Diagnosis SNOMED-CT Code Diagnosis ICD10 Code Diagnosis IMO Codes Diagnosis Note [id number] Michael Champagne MD [facility] ([facility]) [address] [place] [id number] 5 01/25/2023 13:54:03 02/02/2023 19:46:46 care: primigravida [id number] Z34.02 No concerns on today's visit. Anticipato ry guidance provided and all questions answered. Gestation period, 17 weeks 91130848 Z3A.17 [id number] Michael Champagne MD [facility] ([facility]) [address] [place], [place] [phone] 5 02/15/2023 13:40:55 02/15/2023 14:48:56 Normal in multigravida 1317618634 35072 Z34.82 [id number] Michael Champagne MD [facility]) [address] [place], [place] [phone] 02/15/2023 14:36:10 02/21/2023 08:32:56 care: primigravida 213943663 Z34.02 No concerns on today's visit. Anticipato ry guidance provided and all questions answered. Gestation period, 20 weeks 52108661 Z3A.20 [id number] Michael Champagne MD [facility]) [address] [place], [place] [phone] 03/19/2023 14:02:08 03/19/2023 15:29:53 Gestation period, 24 weeks 574731295 Z3A.24 care: primigravida 065252393 Z34.02 No concerns on today's visit. Anticipato ry guidance provided and all questions answered. [id number] MEENAKSHI HANDY [facility] ([facility]) [address] [place], [place] [phone] 04/11/2023 08:10:04 04/11/2023 20:50:22 Gestation period, 28 weeks 26182347 Z3A.28 Itching of both hands 89 0554950 L29.8 [id number] Michael Champagne MD [facility] ([facility]) [address] [place], [place] [address] 5 04/19/2023 13:58:57 04/19/2023 14:29:22 care: primigravida 522629021 Z34.02 No concerns on today's visit. Anticipato ry guidance provided and all questions answered. Gestation period, 29 weeks 49139947 Z3A.29 [id number] Michael Champagne MD [facility] ([facility]) [address] [place] [id number] 5 05/02/2023 11:59:16 05/02/2023 17:09:48 [id number] Michael Champagne MD [facility] ([facility]) [address] [place] [id number] 5 05/02/2023 13:43:53 05/02/2023 17:50:39 care: primigravida 969215888 Z34.03 No concerns on today's visit. Anticipato ry guidance provided and all questions answered. Gestation period, 31 weeks 98344703 Z3A.31 [id number] Michael Champagne MD [facility] ([facility]) [address] [place] [id number] 5 05/16/2023 13:50:46 05/16/2023 17:18:05 28929297 Z33.1 Hyperglycemia 78808566 R 73.9 care: primigravida 065757941 Z34.03 Elevated blood-pressure reading without diagnosis of hypertension 625665183 R03.0 Proteinuria 36274267 R80 .9 [id number] Michael Champagne MD [facility] ([facility]) [address] [place] [id number] 5 05/25/2023 12:05:53 05/25/2023 16:25:53 Normal in multigravida 8714883367 62850 Z34.82 Labor precaution s given. Stressed the importance of continue to monitor her blood sugar given her borderline gestationa l diabetes status. Gestation period, 34 weeks 10016471 Z3A.34 - induced hypertension 42353550 O13.9 Once again patient's blood pressure is elevated today in clinic with repeat still elevated. We will start weekly NSTs with biophysica l profile today. Obtain growth ultrasound at 36 weeks. Proteinuria 25948453 R80 .9 Patient continues to have protein in the urine, however it was not in the preeclampt ic level. We will continue to monitor [id number] Michael Champagne MD [facility] ([facility]) [address] [place] [phone] 5 06/05/2023 14:36:08 06/05/2023 19:52:01 [id number] Michael Champagne MD [facility] ([facility]) [address] [place] [id number] 5 06/06/2023 13:43:05 06/06/2023 16:31:32 Normal in multigravida 8579791408 66263 Z34.82 Labor precaution s given. Stressed the importance of continue to monitor her blood sugar given her borderline gestationa l diabetes status. - induced hypertension 11485180 O13.9 Patient's blood pressure was elevated but it did come down with repeat. Continue to monitor blood pressure at home. Recommend early induction. [id number] Michael Champagne MD [facility] ([facility]) [address] [place] [id number] 5 06/13/2023 13:49:36 06/13/2023 17:03:04 Normal in multigravida 5271796602 03646 Z34.82 Labor precaution s given. Stressed the importance of continue to monitor her blood sugar given her borderline gestationa l diabetes status. - induced hypertension 84446814 O13.9 Continue to monitor blood pressure at home. To present to labor and delivery with any significan t elevations . Plan on induction of labor in 1 week. Gestation period, 37 weeks 43547129 Z3A.37 [id number] Michael Champagne MD [facility] ([facility]) [address] [place] [id number] 5 06/18/2023 09:10:31 06/18/2023 14:08:43 Normal in multigravida 2108976257 98655 Z34.82 Labor precaution s given. Stressed the importance of continue to monitor her blood sugar given her borderline gestationa l diabetes status. - induced hypertension 56323535 O13.9 Continue to monitor blood pressure at home. To present to labor and delivery with any significan t elevations . Plan on induction of labor on June 20 at 9 AM. Plan on cervical ripening with Cytotec. Consent obtained. [id number] Michael Champagne MD [facility] ([facility]) [address] [place] [address] [id number] 5 10/01/2023 14:41:44 10/01/2023 15:39:03 Mixed anxiety and depressive disorder 513031013 F41.8 Will restart duloxetine at 30 mg. Will add buspirone to help with anxiety. Follow-up in 4 to 6 weeks. 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 Will also go ahead and increase the BuSpar dose to 15 mg Low back pain 254025325 M54.50 Patient is not having radiation of her symptoms and would likely benefit from physical therapy given her continued symptoms. [facility] ion care management 059965645 Z30.9 We will order the Nexplanon and have it replaced next week. [id number] Michael Champagne MD [facility] ([facility]) [address] [place] [address] [id number] 5 12/14/2023 11:57:28 12/14/2023 12:37:07 Contraception care management 364116268 Z30.9 Patient test was negative and the Nexplanon was placed. See procedure note Dysuria 50150514 R30.0 UA was not consistent with infection. Will also include gonorrhea and chlamydia as the patient has been positive for this in the past. [id number] MEENAKSHI GUERRA [facility] ([facility]) [address] [place] [address] [id number] 5 12/16/2023 14:06:40 12/16/2023 15:07:30 Cough 80378835 R05.9 Viral uppe r respiratory tract infection 109107826 J06.9 Continue OTC meds. Increase PO fluids. [id number] MEENAKSHI CHILEL [facility] ([facility]) [address] [place] [id number] 5 01/14/2024 16:00:40 01/14/2024 16:27:58 Acute bacterial bronchitis 911349227 J20.9 Discussed use of otc meds for symptom control since symptoms started today. VSS. Return if you develop fever or worsening s/s [id number] ALEXA REYNOLDS [facility] ([facility]) [address] [place] [id number] 5 01/15/2024 12:49:30 01/15/2024 13:34:56 Fever 247427871 R50.9 Flu A negative.F mirna B negative. Cough 02134523 R05.9 Will start benzonatat e PRN for [...] evaluation . Patient verbalizes understand ing. Asthma 400624359 J45.90 9 Will re-start cetirizine for better asthma control. Patient encouraged to follow up with PCP to discuss alternativ e for Advair. [id number] MEENAKSHI CHILEL [facility] ([facility]) [address] [place] [address] [id number] 5 01/20/2024 14:07:20 01/20/2024 14:39:38 Acute bacterial bronchitis 607074593 J20.9 Discussed use of rxn. Return if symptoms worsen or concerns arise. Continue use of daily zyrtec and inhaler if needed. [id number] Michael Champagne MD [facility] ([facility]) [address] [place] [address] [id number] 5 04/01/2024 12:27:08 04/01/2024 13:00:28 Contraception care management 427148139 Z30.9 Regnancy test here was negative. Patient was reassured and will keep the Nexplanon device at this time. [id number] MEENAKSHI CHILEL [facility] ([facility]) [address] [place] [address] [id number] 5 07/02/2024 13:57:36 07/02/2024 16:24:16 Irregular periods 26371063 N92.6 Breakthrou gh bleeding on nexplanon. Urine negative. Elevated blood-pressure reading without diagnosis of hypertension 084666999 R03.0 Discussed to purchase an otc blood pressure machine. Twice a day sit for 15 minutes with your legs uncrossed. After 15 minutes, check your blood pressure and record in a notebook.F /u with your PCP in 2 weeks and bring the notebook. [id number] Zoe Hopkins MD [facility] ([facility]) [address] [place] [address] [id number] 5 03/03/2025 13:59:44 03/10/2025 07:00:44 test positive 645782828 Z32.01 016213 Gestation period, 10 weeks 26733956 Z3A.10 4510551 I reviewed what to avoid in and the plan of care. Nausea 935032185 R11.0 69716 Patient states that she is adverse to taking any medication even Tylenol during . I educated her that I would rather her take prescribed medication and then use her marijuana for nausea. 03/03/2025 Marijuana user 232692245 F12.90 1289870883 I discussed risk of using marijuana during and advised complete cessation. 03/03/2025 Past pregn aaron history of section 662391094 Z98.891 [id number] We discussed that the patient would be repeat section around 39 weeks gestation 03/03/2025 Body mass index 30+ - obesity 350295128 E66.9 [id number] Along with her prior history of borderline preeclamps ia I advised that she do aspirin therapy. Patient was provided with a handout and instructed to start this around 12 weeks gestation. Mixed anxi ety and depressive disorder 855410592 F41.9 F32.A 335964 Since the patient has already been off of her medication s for several weeks we will monitor to see if and when they need to be restarted. 03/03/2025 Electronic cigarette user 832523155 Z78.9 [id number] I discussed the risks of smoking in , including but not limited to: LBW, premature delivery and increased risk of miscarriag e and SIDS. I advised complete cessation 03/03/25 [id number] MEENAKSHI GUERRA [facility] ([facility]) [address] [place] [address] [id number] 5 07/01/2025 14:43:20 07/01/2025 15:40:36 Acute cough 2392214302 73707493 R05.4 2873133064 Acute COVID-19 833689338 8 U07.0 1944932674 Increase po fluids. Rest. May use otc meds such as zyrtec and flonase as needed for symptoms. Return to clinic with any new or worsening symptoms. Health Concerns Section Related Observation LastModified by Organization Detai ls LastModified Time None Recorded Concern Status LastModified by Organization Details LastModified Time None Recorded Advance Directives Directive None Recorded Payers Insurance Date Sequence Insurance Name Policy Number Policy Man Covered Member ID Man Member ID Guarantor Name 03/20/2025 [place] [facility] ([facility] ) Monika Anderson Osthoff [id number] Monika Anderson Osthoff 03/03/2025 1 [place] Monika Anderson Osthoff [id number] Monika Anderson Osthoff 03/20/2025 1 *SELF PAY* Mendez Anderson Osthoedgardo 03/03/2025 1 [place] [id number] Monika Anderson Osthoff [id number] Monika Anderson Osthoff 07/01/2025 1 [place] [id number] Monika Anderson Osthoff [id number] Monika Anderson Osthoff 03/20/2025 1 [place] Monika Anderson Osthoff [id number] Monika Anderson Ostsamantha Notes Date Note Type Note Provider Name and Address Organization Details Recorded Time 4 text/html CoughReported by PatientHPIFor severity, patient reportsworseningandpain with coughbut reportsmild. For associated symptoms, patient reportsfever,chills,wheezin g, andnasal discharge. For quality, patient reportsproductive. For duration, patient reportsconstant.Pt returns today with c/o continued cough. Was started on zyrtec and states that is not helping. She's using her inhaler during the day with no relief. Denies fever.ROS as noted in the HPI MEENAKSHI CHILEL [address] [place], [phone], [facility], LChris 01/20/2024 15:57:45 4 text/html This is a 23-year-old that comes in today for concerns of positive test and the need to have her Nexplanon removed. Patient states that she had a positive test at home. Patient denies any other symptoms of . Michael Champagne MD [address] [place] [address], [phone], [facility] 04/01/2024 14:08:20 4 text/html Menstrual IrregularityReported by PatientROS as noted in the HPI WALK IN PATIENTpatient is here today for menstrual bleeding for 3 weeks when on Nexplanon control. Patient wants to make sure that she is not . JEANINE AMNZANO [address], [phone], [facility] 07/02/2024 15:55:59 5 text/html ROS as noted in the HPI Zoe Hopkins MD [address] [place] [address], [phone], [facility] 03/09/2025 16:02:07 5 text/html ROS as noted in the HPI walk inx3 days nasal congestion, cough, BUSH, sore throat. Sees Dr Terry for OB care. Has not taken anything for symptoms. EBER LOYOLA [address], [phone], [facility] 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 Status 03/03/20 25 1 OPEN Fetus Data [...] Latest Days Gestation 0 09/26/20 25 0 Pre-alex Flowsheet Flowsheet Date 03/03/2025 Muñoz Score Blood Edema Fundus Height Fundus Units Glucose Ketones Leukocytes Nitrite Labor Signs Protein Cervic Dilation Cervic Effacement Cervic Station Type Weight in lbs Pre/Post Dialysis Refused Weight 194.373073961755 BP Diastolic BP Location Tested BP Systolic BP Type 70 118 Fetus Heart Rate Present Fetus Movement Comments Flowsheet Date 07/01/2025 Muñoz Score Blood Edema Fundus Height Fundus Units Glucose Ketones Leukocytes Nitrite Labor Signs Protein Cervic Dilation Cervic Effacement Cervic Station Type Weight in lbs Pre/Post Dialysis Refused Weight 175.197544007576 BP Diastolic BP Location Tested BP Systolic BP Type 64 110 Fetus Heart Rate Present Fetus Movement Comments Menstrual History Last Menstrual Date Menses Monthly On Bcp Conception Prior Menses Frequency Hcg Plus Date Menarche Onset Age 0212/20/2024 false Genetic Screening And Infection History Question Response Note Patient's Age Will Be 35 Yea rs Or Older At Estimated Date of Delivery false Thalassemia (South Sudanese, Singaporean, Mediterranean, Or Background): MCV < 80 false Neural Tube Defect (Meningom yelocele, Spina Bifida, Or Anencephaly) false Congenital Heart Defect false Down Syndrome false Van-Sachs (eg, Church, Cajun, Sri Lankan-Scottish) f alse Heather Disease false Sickle Cell Disease Or Trait () false Hemophilia Or Other Blood Disorders false Muscular Dystrophy false Cystic Fibrosis false [place]'s Chorea false Intellectual Disability/Autism false If Yes, [...] Domestic Partner Domestic Partner Phone Father Name Spray Drier Operator Status 01/23/20 23 1 A Positive 206 [...] Latest Days Gestation 0 07/04/20 23 0 Pre-alex Flowsheet Flowsheet Date 01/25/2023 Muñoz Score Blood Edema Fundus Height Fundus Units Glucose Ketones Leukocytes Nitrite Labor Signs Protein Cervic Dilation Cervic Effacement Cervic Station none Type Weight in lbs Pre/Post Dialysis Refused With clothes 220.644857153603 BP Diastolic BP Location Tested BP Systolic [...] in lbs Pre/Post Dialysis Refused With clothes 209.416126074690 BP Diastolic BP Location Tested BP Systolic [...] in lbs Pre/Post Dialysis Refused With clothes 219.008559105325 BP Diastolic BP Location Tested BP Systolic BP Type 50 L arm 144 sitting Fetus Heart Rate Present A 140 Fetus Movement A Yes Comments Flowsheet Date 04/11/2023 Muñoz Score Blood Edema Fundus Height Fundus Units Glucose Ketones Leukocytes Nitrite Labor Signs Protein Cervic Dilation Cervic Effacement Cervic Station Type Weight in lbs Pre/Post Dialysis Refused With clothes 225.545262571738 BP Diastolic BP Location Tested BP Systolic [...] in lbs Pre/Post Dialysis Refused With clothes 233.238329943684 BP Diastolic BP Location Tested BP Systolic [...] in lbs Pre/Post Dialysis Refused With clothes 236.441569542637 BP Diastolic BP Location Tested BP Systolic [...] in lbs Pre/Post Dialysis Refused With clothes 237.888092283533 BP Diastolic BP Location Tested BP Systolic [...] in lbs Pre/Post Dialysis Refused With clothes 238.31865184168 BP Diastolic BP Location Tested BP Systolic [...] in lbs Pre/Post Dialysis Refused With clothes 242.523152461027 BP Diastolic BP Location Tested BP Systolic [...] Fetus Heart Rate Present Fetus Movement Comments Ver[employer] and [employer] record s sent to [facility] L&D. tcg Flowsheet Date 06/18/2023 Muñoz Score Blood Edema Fundus Height Fundus Units Glucose Ketones Leukocytes Nitrite Labor Signs Protein Cervic Dilation Cervic Effacement Cervic Station neg none 38 cm none none neg 0cm 30% -3 Type Weight in lbs Pre/Post Dialysis Refused With clothes 245.135397257960 BP Diastolic BP Location Tested BP Systolic BP Type 78 L arm 148 sitting Fetus Heart Rate Present A 170 Fetus Movement A Yes Comments Flowsheet Date 10/01/2023 Muñoz Score Blood Edema Fundus Height Fundus Units Glucose Ketones Leukocytes Nitrite Labor Signs Protein Cervic Dilation Cervic Effacement Cervic Station Type Weight in lbs Pre/Post Dialysis Refused With clothes 207.998357585753 BP Diastolic BP Location Tested BP Systolic [...] At Estimated Date of Delivery false Thalassemia (South Sudanese, Singaporean, Mediterranean, Or Background): MCV < 80 false Neural Tube Defect (Meningomyelocele, Spina Bifi da, Or Anencephaly) false Congenital Heart Defect false Down Syndrome false Van-Sachs (eg, Church, Cajun, Sri Lankan-Scottish) f alse Heather Disease false Sickle Cell Disease Or Trait () false Hemophilia Or Other Blood Disorders false Muscular Dystrophy false Cystic Fibrosis false [place]'s Chorea false Intellectual Disability/Autism false If Yes, [...] of preeclampsia dcrase 04/19/2023 movement monitoring dc rase 04/19/2023 Labor signs dcrase Delivery Information Delivery Date Delivery Type Labor Anesthesia Weeks Gestation Incision Type Labor Labor Length Hrs Delivered By Post Complications Tubal Sterilization Discharge Date Comments 3 Induce d Regional-Ep idural 39.2 Low Transvers Michael King MD Other Failure to progress Discharge Information Feeding Method Contraceptive Method Maternal HG B and HCT Levels
--- OUTSIDE RECORDS SUMMARY | 2025-08-21 14:13 | XMS_ITS | Patient Health Record ---
Author Organization [facility] Address [address] [place] [id number] Care Team Providers Care Hollow Ware Maker Name Role Phone Non [facility] Provider, Provider Primary Care Ronnie hairston Unavailable Barbara Hernandez [phone] Allergies No Known Allergies Reason For Referral No Information Medications Medication SIG (Take, Route, Frequency, Duration) Notes Start Date End Date Status Azelastine-Fluticaso ne 137-50 MCG/ACT 1 spray in each nostril Nasally Twice a day; Duration: 30 day(s) 04/15/2021 Not-Taking Triamcinolone Acetonide 0.1 % 1 application Externally three times a day; Duration: 7 days 04/18/2021 Not-Taking Ibuprofen 200 MG 5 tablets with food or milk as needed Orally once a day PRN Active Advair Diskus 100-50 MCG/DOSE 1 puff Inhalation Twice a day; Duration: 30 days Active Polyethylene Glycol 3350 - 1 cap 3x a day x2-3 days, then 1-2 cap daily as directed; Duration: 30 days PRN 12/19/2019 Active Pantoprazole Sodium 20 MG 1 tablet Orally Once a day; Duration: 30 day(s) 04/05/2021 Not-Taking busPIRone HCl 5 MG 2 tablets as needed Orally every 8 hrs; Duration: 30 PRN Active Nexplanon 68 MG as directed Subcutaneous Per pt New Nexplanon at [facility] 10/01/2020 Active Albuterol Sulfate HFA 108 (90 Base) MCG/ACT 2 to 4 puffs as needed Inhalation every 4 hrs; Duration: 30 days PRN 12/22/2019 Active Immunizations Vaccine Route Administration Date Status Comme nts Flu Vac Pres Free Quad 0.5 PRIVATE IM Intramuscular 08/27/2020 Administered Gardasil-Private Stock IM Intramuscular 08/27/2020 Adminis tered Hepatitis N-Zth-Xzpnmsy Stock IM Intramuscular 08/27/2020 Administered Social History [...] Problem Status W/U Status Risk Notes Problem Mixed anxiety and depressive disorder (014345584) Depression with anxiety (F41.8) Active confirmed Problem Anxiety attack (124699281) Anxiety attack (F41.0) Active confirmed Problem Sleep disturbance (51343995) Sleep disturbance (G47.9) Active confirmed Problem Gastroesophageal reflux disease without esophagitis (212410929) Gastroesophageal reflux disease without esophagitis (K21.9) Active confirmed Problem Slow transit constipation (59013724) Slow transit constipation (K59.01) Active confirmed Problem Mild intermittent asthma (799736165) Mild intermittent asthma without complication (J45.20) Active confirmed Problem Peptic ulcer disease (42888769) PUD (peptic ulcer disease) (K27.9) Active confirmed Problem Allergic rhinitis (62469258) Non-seasonal allergic rhinitis, unspecified trigger (J30.89) Active confirmed Problem Attention deficit hyperactivity disorder (103195661) ADHD (attention deficit hyperactivity disorder) evaluation (Z13.39) Active confirmed Plan Of Treatment No Information Insurance Providers Payer Name Payer Address Payer Phone Subscriber Number Group Number Insured Name Patient Relationship to Insured Coverage Start Date Coverage End Date Blue Cross Blue [facility] [address] [place], [place] [id number] Monika Khan Self - patient is [...] 2008 surgery (Pin in R 5th finger) 2017 laproscopic cholecystectomy--[facility] 020 Hospitalization History Reason Date(Month/Year) surgeries
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
[2025-08-21 14:42] LABS: Glucose Urine UA Negative (Normal); Nitrate Urine Negative (Negative); Specific Gravity, Urine 1.006 (1.005-1.030)
[2025-08-21 14:44] LABS: Add Urine Microscopic? YES
[2025-08-21 15:14] LABS: UA Slide Review UA Slide Review Perf
== END 2025-08-21 14:43 | disposition home or self-care (01) ==
PROVIDERS: Emergency Provider Emergency Medicine
DX: Z04.1 Encounter for examination and observation following transport accident (principal); M79.605 Pain in left leg; M79.642 Pain in left hand; F12.90 Cannabis use, unspecified, uncomplicated
CPT/HCPCS: 81001; 99283

== ENCOUNTER 2025-08-21 14:43 | Outpatient (CLI) | payer BC, MEDICAID, SELFPAY ==
[2025-08-21 14:43] VITALS: BMI 36.7
[2025-08-21 14:50] VITALS: BP 112/63; PULSE 108; RESP 18
[2025-08-21 15:25] VITALS: BP 112/55; PULSE 105
[2025-08-21 15:55] VITALS: BP 112/56; PULSE 98
[2025-08-21 16:25] VITALS: BP 126/59; PULSE 101
[2025-08-21 16:32] VITALS: BP 126/59; PULSE 101; RESP 15
== END 2025-08-21 16:33 | disposition home or self-care (01) ==
LOC: OPOB 14:57 → OBGYN 14:58
PROVIDERS: Visit Provider Family Medicine
DX: O26.899 Other specified pregnancy related conditions, unspecified trimester (principal); Z3A.00 Weeks of gestation of pregnancy not specified; V49.9XXA Car occupant (driver) (passenger) injured in unspecified traffic accident, initial encounter
CPT/HCPCS: 59025; 99211

== ENCOUNTER 2025-08-24 10:12 | Emergency (ER) | payer BC, MEDICAID, SELFPAY ==
--- NOTE | 2025-08-24 10:14 | XR_ITS ---
WS: [id number] Exam: XR shoulder RT min 2V* [id number] Date/Time of Exam: 08/24/2025 10:21 AM Reason For Exam: injury DLP: No fracture or dislocation. The joints are preserved. Normal soft tissues. XR/XR shoulder RT min 2V* [id number] IMPRESSION: 1. Normal RIGHT shoulder.
[2025-08-24 10:20] VITALS: BP 107/57; PULSE 91; RESP 20; TEMP 36.4; O2SAT 96
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
[2025-08-24 10:27] VITALS: PULSE 86; RESP 18; O2SAT 97
--- OUTSIDE RECORDS SUMMARY | 2025-08-24 10:52 | XMS_ITS | Clinical Summary ---
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
--- OUTSIDE RECORDS SUMMARY | 2025-08-24 10:53 | XMS_ITS | Patient Health Record ---
Author Organization [facility] Address [address] [place] [id number] Care Team Providers Care Automobile Accessories Salesperson Name Role Phone Non [facility] Provider, Provider Primary Care Ronnie hairston Unavailable Barbara Hernandez [phone] Allergies No Known Allergies Reason For Referral [...] directed Subcutaneous Per pt New Nexplanon at [facility] 10/01/2020 Active Albuterol Sulfate HFA 108 (90 Base) MCG/ACT 2 to 4 puffs as needed Inhalation every 4 hrs; Duration: 30 days PRN 12/22/2019 Active Immunizations Vaccine Route Administration Date Status Comme nts Flu Vac Pres Free Quad 0.5 PRIVATE IM Intramuscular 08/27/2020 Administered Gardasil-Private Stock IM Intramuscular 08/27/2020 Adminis tered Hepatitis H-Sqs-[place] Stock IM Intramuscular 08/27/2020 Administered Social History [...] Notes Problem Mixed anxiety and depressive disorder (139871225) Depression with anxiety (F41.8) Active confirmed Problem Anxiety attack (460179872) Anxiety attack (F41.0) Active confirmed Problem Sleep disturbance (39463550) Sleep disturbance (G47.9) Active confirmed Problem Gastroesophageal reflux disease without esophagitis (822024888) Gastroesophageal reflux disease without esophagitis (K21.9) Active confirmed Problem Slow transit constipation (30080040) Slow transit constipation (K59.01) Active confirmed Problem Mild intermittent asthma (757635407) Mild intermittent asthma without complication (J45.20) Active confirmed Problem Peptic ulcer disease (28556014) PUD (peptic ulcer disease) (K27.9) Active confirmed Problem Allergic rhinitis (69062178) Non-seasonal allergic rhinitis, unspecified trigger (J30.89) Active confirmed Problem Attention deficit hyperactivity disorder (104034259) ADHD (attention deficit hyperactivity disorder) evaluation (Z13.39) Active confirmed Plan Of Treatment No Information Insurance Providers Payer Name Payer Address Payer Phone Subscriber Number Group Number Insured Name Patient Relationship to Insured Coverage Start Date Coverage End Date Blue Cross Blue [facility] [place] [place] [address] [place], [place] [phone] [id number] Monika Khan Self - patient is [...] (Pin in R 5th finger) 2017 laproscopic cholecystectomy--[facility] [place] 020 Hospitalization History Reason Date(Month/Year) surgeries
--- NOTE | 2025-08-24 11:08 | PC.NURSE ---
FHT 147
[2025-08-24 11:09] VITALS: BP 107/57; PULSE 90; O2SAT 97
== END 2025-08-24 11:09 | disposition home or self-care (01) ==
PROVIDERS: Emergency Provider Emergency Medicine
DX: S40.011A Contusion of right shoulder, initial encounter (principal); Z3A.30 30 weeks gestation of pregnancy; V89.2XXA Person injured in unspecified motor-vehicle accident, traffic, initial encounter; F12.90 Cannabis use, unspecified, uncomplicated
CPT/HCPCS: 73030; 84315; 99283

== ENCOUNTER 2025-09-06 21:12 | Outpatient (CLI) | payer BC, MEDICAID, SELFPAY ==
[2025-09-06 21:16] VITALS: BMI 37.1
[2025-09-06 21:19] VITALS: RESP 16
[2025-09-06 21:25] VITALS: BP 135/76; PULSE 93
[2025-09-06 21:38] LABS: Glucose Urine UA Negative (Normal); Nitrate Urine Negative (Negative); Specific Gravity, Urine 1.006 (1.005-1.030)
[2025-09-06 21:41] VITALS: BP 119/67; PULSE 88
[2025-09-06 21:55] VITALS: BP 118/68; PULSE 86
== END 2025-09-06 22:00 | disposition home or self-care (01) ==
LOC: OPOB 21:12 → OBGYN 21:14
PROVIDERS: Visit Provider Obstetrics & Gynecology
DX: O26.899 Other specified pregnancy related conditions, unspecified trimester (principal); Z3A.00 Weeks of gestation of pregnancy not specified; N89.8 Other specified noninflammatory disorders of vagina
CPT/HCPCS: 59025; 81001; 84112; 99211

== ENCOUNTER → 2025-09-07 09:34 | Outpatient (BNVA) | payer BC, MEDICAID, SELFPAY | PROVIDERS: Visit Provider Obstetrics & Gynecology | DX: Z34.83 Encounter for supervision of other normal pregnancy, third trimester (principal); Z3A.32 32 weeks gestation of pregnancy; Z98.891 History of uterine scar from previous surgery | CPT/HCPCS: 84315 ==

== ENCOUNTER → 2025-09-21 09:46 | Outpatient (BNVA) | payer MEDICAID, SELFPAY | PROVIDERS: Visit Provider Obstetrics & Gynecology | DX: Z34.93 Encounter for supervision of normal pregnancy, unspecified, third trimester (principal); Z3A.34 34 weeks gestation of pregnancy | CPT/HCPCS: 84315 ==

== ENCOUNTER 2025-09-28 17:39 | Outpatient (CLI) | payer MEDICAID, SELFPAY ==
[2025-09-28 17:35] VITALS: BMI 37.2
[2025-09-28 18:09] VITALS: BP 125/59; PULSE 98
[2025-09-28 18:24] VITALS: BP 119/59; PULSE 102
[2025-09-28 18:39] VITALS: BP 119/59; PULSE 98
[2025-09-28 18:54] VITALS: BP 121/59; PULSE 91
[2025-09-28 19:10] VITALS: BP 121/59; PULSE 91; RESP 16
== END 2025-09-28 19:15 | disposition home or self-care (01) ==
LOC: OPOB 17:41 → OBGYN 17:42
PROVIDERS: Visit Provider Obstetrics & Gynecology
DX: O13.9 Gestational [pregnancy-induced] hypertension without significant proteinuria, unspecified trimester (principal); Z3A.00 Weeks of gestation of pregnancy not specified; R51.9 Headache, unspecified; R25.2 Cramp and spasm
CPT/HCPCS: 59025; 99211; J9999

== ENCOUNTER 2025-10-05 10:29 | Outpatient (CLI) | payer MEDICAID, SELFPAY ==
[2025-10-05 10:22] VITALS: BMI 36.1
[2025-10-05 10:40] VITALS: BP 112/67; PULSE 116
[2025-10-05 10:59] LABS: Glucose Urine UA Negative (Normal); Nitrate Urine Negative (Negative); Specific Gravity, Urine 1.010 (1.005-1.030)
[2025-10-05 11:03] LABS: Universal Test for UA Present (0)
[2025-10-05 11:29] VITALS: BP 123/61; PULSE 101
[2025-10-05] MEDS: nitrofurantoin SR (BID) 100 mg Capsule PO (11:35)
== END 2025-10-05 11:45 | disposition home or self-care (01) ==
LOC: OPOB 10:29 → OBGYN 10:31
PROVIDERS: Visit Provider Obstetrics & Gynecology
DX: O26.899 Other specified pregnancy related conditions, unspecified trimester (principal); Z3A.00 Weeks of gestation of pregnancy not specified; R10.9 Unspecified abdominal pain
CPT/HCPCS: 59025; 81001; 84315; 87081; 87086; 99211; J9999

== ENCOUNTER → 2025-10-12 10:21 | Outpatient (BNVA) | payer MEDICAID, SELFPAY | PROVIDERS: Visit Provider Obstetrics & Gynecology | DX: Z34.93 Encounter for supervision of normal pregnancy, unspecified, third trimester (principal); Z3A.37 37 weeks gestation of pregnancy | CPT/HCPCS: 84315 ==

== ENCOUNTER 2025-10-26 07:44 | Oncology outpatient (recurring) (ONCR) | payer MEDICAID, SELFPAY ==
[2025-10-19 14:17] VITALS: BP 125/72; PULSE 99; TEMP 36.3; O2SAT 98
[2025-10-19] MEDS: iron sucrose 200 MG/100 ML BAG IV (14:38)
[2025-10-21] MEDS: iron sucrose 200 MG/100 ML BAG IV (08:05)
[2025-10-21 08:44] VITALS: BP 102/66; PULSE 97; RESP 17; TEMP 37.1; O2SAT 98
[2025-10-26 07:57] VITALS: BP 132/77; PULSE 100; RESP 16; TEMP 36.7; O2SAT 97
[2025-10-26] MEDS: iron sucrose 200 MG/100 ML BAG IV (08:15)
[2025-10-26 08:49] VITALS: BP 108/67; PULSE 74; TEMP 36.6; O2SAT 98
== END 2025-10-27 14:59 | disposition home or self-care (01) ==
PROVIDERS: Visit Provider Internal Medicine Medical Oncology
DX: D50.9 Iron deficiency anemia, unspecified (principal); Z79.899 Other long term (current) drug therapy
CPT/HCPCS: 96365; J1756; J7050

== ENCOUNTER 2025-10-27 03:02 | Inpatient (IN) | payer MEDICAID, SELFPAY ==
--- NOTE | 2025-10-15 11:24 | P.ANESASSM_ITS ---
Pre-Anesthetic Assessment Height/Weight: Height 5 ft 1 in Preop Diagnosis: IUP Operation Date: 10/27/25 07:20 Proposed Procedures p Section Repeat(Not Applicable) - Honorio Terry MD Was Beta Bela taken within 24 hours: N/A Was Clonidine taken within 24 hours: N/A Social No alcohol and No tobacco Smokes marijuana Exam alert, oriented x 3, clear to auscultation bilaterally and regular rate & rhythm Airway Submandibular: within normal limits Cervical ROM: within normal limits Mallampati: Class III Comments: Comments: Poor dentition, multiple missing teeth. Denies any loose teeth Anesthetic Plan ASA status: 2 Anesthesia: General Other: Patient had a prior emergency for low heart tones. Patient states she went all the way to sleep at that time Denies any issues during this History of PTSD Patient smokes marijuana because she states is the only thing she can do to eat Will obtain labs morning of procedure Plan for routine with spinal Medications/Allergies Home Medications ?Medication ?Instructions ?Recorded ?Confirmed ?Last Taken ?Type ixitobvr-plr-Rb-FA 1 mg 1 tab PO 1XD 09/06/25 10/12/25 09/04/25 History tablet acetaminophen 325 mg tablet 325 mg PO QID PRN 09/07/25 10/12/25 Unknown History (Tylenol) nitrofurantoin 100 mg PO BID 10/05/2510/12 Unknown History monohydrate/macrocrystals 100 mg capsule (Macrobid) Allergies Allergy/AdvReac Type Severity Reaction Status Date / Time bupropion (From Wellbutrin) Allergy Intermediate ALGY-Hives Verified 10/12/25 10:21 fluoxetine (From Prozac) Allergy ALGY-Hives Verified 10/12/25 10:21 [facility] Anesthesia Medical History (Updated 10/13/25 @ 11:43 by Jaimie Wood) Gestational hypertension without significant proteinuria during in third trimester, antepartum ADHD (attention deficit hyperactivity disorder) Asthma GERD (gastroesophageal reflux disease) Surgical History Status post laparoscopic cholecystectomy (03/15/20) Hx of tonsillectomy Family History Family/Other Diabetes Great Grandmother Grandmother Thyroid disease Maternal and Paternal Hypertension Denies family history of Colon cancer Ovarian cancer Prostate cancer Heart disease Hypercholesteremia Hyperlipidemia Breast cancer Bleeding disorder Uterine cancer Stroke Social History Smoking and tobacco/nicotine status: current every day tobacco/nicotine user (marijuana) Quit status (tobacco/nicotine): has quit using Second hand smoke exposure: Yes Alcohol intake: never Substance/Drug Use: never
[2025-10-26] VITALS (13 sets, daily range): BP systolic 112–140; BP diastolic 56–91; PULSE 85–114; BMI 38.3
[2025-10-26 21:05] LABS: Nitrazine Paper, PH Negative
[2025-10-27] VITALS (36 sets, daily range): BP systolic 86–147; BP diastolic 37–80; PULSE 77–108; RESP 15–16; TEMP 36.5–37.5; O2SAT 96–98; BMI 38.3
[2025-10-27 05:41] LABS: Hemoglobin 7.80 g/dL (11.27-16.99)
[2025-10-27 05:47] LABS: Hematocrit 24.6 % (36-47); Mean Corpuscular HGB Conc 31.7 g/dL (30-55); Mean Corpuscular Hemoglobin 20.9 pg (27-33); Mean Corpuscular Volume 65.8 fl (85-98); Nucleated Red Blood Cells % 0.6 %; Platelet Count 239 10^3/cmm (157-399); Red Blood Count 3.74 10^6/uL (3.85-5.65); White Blood Count 13.92 10^3/uL (3.29-11.43)
[2025-10-27] MEDS: metoclopramide 5 mg/mL SDV 2 mL 10 MG IVP (07:01)
[2025-10-27] MEDS: BUPivacaine-epi 0.5% 10 ML INJ 30 ML INJECTION (08:10)
--- NOTE | 2025-10-27 08:42 | W.PM.OPSUD ---
Surgery/Procedure H&P Update DATE OF PROCEDURE: October 27, 2025 DATE H&P PERFORMED: 10/19/25 CHANGES TO PREVIOUS DOCUMENTATION: None PREOP DIAGNOSIS: IUP 39 weeks for Repeat CS PRIMARY INDICATION FOR PROCEDURE: Repeat LTCS PLANNED PROCEDURE: Operation Date: 10/27/25 07:20 Proposed Procedures p Section Repeat(Not Applicable) - Ronny Avendaño MD Related Problem List Diagnoses 1. H/O: : 2. 39 weeks gestation of : 3. Antepartum anemia: Qualifiers: Trimester: unspecified trimester
--- NOTE | 2025-10-27 08:45 | PM.OP2 ---
Brief Operative Note Date of procedure: 10/30/25 Pre-op diagnosis: 39 week IUP, hx of CS, peripartum anemia Post-op diagnosis: same Procedure Done: Repeat LTCS Surgeon: Ronny Avendaño Estimated blood loss (mL): 250 Complications: None Post-op Plan: To recovery Condition: stable Disposition: floor (OB)
--- NOTE | 2025-10-27 08:47 | P.OP_ITS ---
Operative Report Date of procedure: October 27, 2025 Surgeon: Ronny Avendaño MD Brief History: The patient is a 24-year-old 2 para 1 at 39 weeks gestation presenting for repeat section. She was noted to have peripartum anemia with a hemoglobin of 7.8 g/dL and had received recent intravenous iron infusion. The patient denied dizziness, nausea, or vomiting and was asymptomatic. Informed consent was obtained after discussion of the risks, benefits, and alternatives of the procedure, including the potential need for blood transfusion. The patient agreed to accept blood products if indicated. Procedure: PROCEDURE PERFORMED:?Repeat low transverse section INDICATION:?Previous section at 39 weeks gestation PREOPERATIVE DIAGNOSIS: * Term intrauterine at 39 weeks gestation * Repeat section * Peripartum anemia with hemoglobin of 7.8 g/dL, status post recent iron infus ion POSTOPERATIVE DIAGNOSIS:?Same SURGEON:Anand Arriola MD ANESTHESIA:?Spinal anesthesia ESTIMATED BLOOD LOSS:?250 mL COMPLICATIONS:?None FINDINGS: * Live male in vertex presentation * weight: Approximately 8 pounds (3629 grams) * scores: 8 at 1 minute, 9 at 5 minutes * Bilateral fallopian tubes and ovaries grossly normal SPECIMENS:?Placenta not sent DESCRIPTION OF PROCEDURE: The patient was brought to the operating room where spinal anesthesia was administered without difficulty. She remained awake and conversant throughout the procedure, with her at her side providing support. The patient was placed in the supine position with left lateral tilt. A Cabrales catheter was inserted under sterile technique. The abdomen was prepped and draped in the usual sterile fashion using abdominal and vaginal antiseptic preparation. Prophylactic antibiotic therapy with cefazolin 2 grams was administered intravenously prior to skin incision.Tranexamic acid 1 gram was administered perioperatively for reduction of blood loss given the patient's preoperative anemia. A Pfannenstiel skin incision was made and carried through the subcutaneous tissue using electrocautery. The fascia was incised transversely and extended bilaterally with Miller scissors. The rectus muscles were in the midline. The peritoneum was entered sharply and extended with blunt dissection. The bladder flap was created by sharply incising the vesicouterine peritoneum and dissecting the bladder inferiorly. A low transverse hysterotomy was created with a scalpel and extended bluntly. The was delivered in vertex presentation. The mouth and nose were suctioned. The umbilical cord was clamped and cut, and the was handed to the insurance claims adjuster in attendance after 30 sec. The infant was a vigorous male weighing approximately 8 pounds with scores of 8 and 9 at 1 and 5 minutes, respectively. The placenta was delivered via controlled cord traction and the uterine cavity was cleared of all clots and membranes with a lap sponge. The uterus was exteriorized for repair and inspection. Both fallopian tubes and ovaries were visualized and appeared anatomically normal. The hysterotomy was closed in two layers using running Vicryl suture with excellent hemostasis achieved. Cavity irrigated with NS and clots removed. The uterus was returned to the abdominal cavity. Hemostasis was confirmed throughout. The bladder flap was reapproximated using running plain gut suture. The peritoneum was closed with running plain gut suture. The fascia was closed with running Vicryl suture in the usual manner. The subcutaneous tissue was approximated with plain gut suture. Local anesthesia consisting of bupivacaine diluted with epinephrine 1:200,000 was infiltrated along the incision edges for postoperative pain control. The skin was closed with non-metallic stephanie. All sponge, needle, and instrument counts were correct at the conclusion of the procedure. The patient tolerated the procedure well and was transferred to the recovery room in stable condition. Estimated blood loss was 250 mL. PLAN: * Monitor hemoglobin postoperatively given preoperative anemia * Continue standard postoperative section care * Iron supplementation as indicated * Routine follow-up
[2025-10-27] MEDS: ferrous sulfate EC 325 mg Tablet PO (18:02)
[2025-10-27 23:12] LABS: Hematocrit 25.6 % (36-47); Hemoglobin 7.80 g/dL (11.27-16.99); Mean Corpuscular HGB Conc 30.5 g/dL (30-55); Mean Corpuscular Hemoglobin 20.3 pg (27-33); Mean Corpuscular Volume 66.5 fl (85-98); Platelet Count 269 10^3/cmm (157-399); Red Blood Count 3.85 10^6/uL (3.85-5.65); White Blood Count 15.45 10^3/uL (3.29-11.43)
[2025-10-28 04:57] VITALS: BP 109/59; PULSE 85; RESP 16; TEMP 36.5; O2SAT 98
[2025-10-28 04:58] VITALS: BP 109/59; PULSE 85
[2025-10-28] MEDS: PRENATAL VIT NO.130/IRON/FOLIC 1 EACH TABLET PO (04:59)
--- NOTE | 2025-10-28 07:31 | PM.OBGYDC ---
Discharge Providers CERTIFIED PROSTHETIST Date of Admission: 10/27/25 03:02 Date of Discharge: 10/28/25 Attending Provider at Admission: Ronny Avendaño MD Attending Provider at Discharge: Ronny Avendaño MD Diagnoses at Discharge Discharge Diagnosis 1. 39 weeks gestation of : 2. Iron deficiency anemia: 3. H/O: : 4. delivery delivered: Reason for Visit Reason for Visit: Pelvic pressure, possible ROM Hospital Course Hospital Course Admitted for planned RCS. Progressed pp in diet ambulation and pain control to DC. See chart for details. Information Peripartum Data: Delivery Method: Physical Exam Narrative: Appearance: grossly normal Attitude: calm and engaged, appropriate eye contact Const: no acute distress, oriented x3 cooperative Chest: Symmetrical chest wall rise Resp: normal respiratory effort, clear to auscultation bilaterally Cardio: regular rate and regular rhythm GI: Soft to palpation, Non Tender, no Guarding, no masses, incision bandaged clean Extremity: normal inspection, negative for no pedal edema Neuro: oriented x3 and moves all extremities, speech normal Psych: mental status grossly normal, and Normal thought process present Skin: no rashes or lesions noted Urinary Catheter Management: Cabrales: Cath Placed During This Visit: yes, but has since been removed by the nurse Reason for Continuing Indwelling Catheter: Decision to DC Catheter Urinary Catheter Date of Insertion: 10/27/25 Urinary Catheter Time of Insertion: 07:28 Date Urinary Catheter Removed: 10/27/25 Time Urinary Catheter Discontinued: 14:45 History History History 2 Term 1 0 Miscarriages/Ectopic 0 Living Children 1 Past Pregnancies Del. Date GA/Weeks Outcome Route Wt Inf Gender Labor Lgth Comp. Anesthesia Location 06/29/23 39 live - full term 8 lb Female Other [facility] [address] [address] Delivery Date: 06/29/23 Last Updated by: Xuan San CNA gestational hypertension, two failed inductions and prolonged rupture of membranes Discharge Data Studies Completed and Pending Pending at discharge Category Date Time Status High Risk PP Hemorrhage Stat Lab 10/27/25 05:10 Received PACKED CELLS [Leukocyte Reduced RBC] Routine Lab 10/27/25 05:10 Results Type and Screen Routine Lab 10/27/25 05:10 Results Laboratory Results WBC 15.45 10^3/uL (3.29-11.43) H 10/27/25 22:47 RBC 3.85 10^6/uL (3.85-5.65) 10/27/25 22:47 Hgb 7.80 g/dL (11.27-16.99) L 10/27/25 22:47 Hct 25.6 % (36-47) L 10/27/25 22:47 MCV 66.5 fl (85-98) L 10/27/25 22:47 MCH 20.3 pg (27-33) L 10/27/25 22:47 MCHC 30.5 g/dL (30-55) 10/27/25 22:47 RDW 17.5 % (12.1-15.1) H 10/27/25 22:47 Plt Count 269 10^3/cmm (157-399) 10/27/25 22:47 MPV Not Reportable 10/27/25 22:47 Neut % (Auto) 67.8 % 10/27/25 05:10 Lymph % (Auto) 20.2 % 10/27/25 05:10 Bond % (Auto) 7.2 % 10/27/25 05:10 Eos % (Auto) 0.6 % 10/27/25 05:10 Baso % (Auto) 0.2 % 10/27/25 05:10 Neut # (Auto) 9.45 10^3/uL (1.8-7.7) H 10/27/25 05:10 Lymph # (Auto) 2.8 10^3/uL (0.8-4.8) 10/27/25 05:10 Bond # (Auto) 1.0 10^3/uL (0.2-0.9) H 10/27/25 05:10 Eos # (Auto) 0.1 10^3/uL (0.0-0.8) 10/27/25 05:10 Baso # (Auto) 0.0 10^3/uL (0.0-0.1) 10/27/25 05:10 Nucleated RBC % (auto) 0.6 % 10/27/25 05:10 Nucleated RBCs # 0.1 /100WBC 10/27/25 05:10 Fluid pH (paper) Negative 10/26/25 20:51 Blood Type A Positive 10/27/25 05:10 Rho(D) Type Rh positive 10/27/25 05:10 Antibody Screen Negative 10/27/25 05:10 Crossmatch See Detail 10/27/25 05:10 Vitals Last Vital Signs Temp 97.7 F 10/28/25 04:57 Pulse 85 10/28/25 04:58 Resp 16 10/28/25 04:57 BP 109/59 10/28/25 04:58 Pulse Ox 98 10/28/25 04:57 O2 Del Method Room Air 10/28/25 04:57 Results Labs OB ([facility]): Obstetrics US 09/07/25 Blood Type A Positive 10/27/25 Antibody Screen Negative 10/27/25 Hct, (36-47) 25.6 % L 10/27/25 Hgb, (11.27-16.99) 7.80 g/dL L 10/27/25 Rho(D) Type Rh positive 10/27/25 Plt Count, (157-399) 269 10^3/cmm 10/27/25 Hep Bs Antigen, (Nonreactive) Non-reactive 04/20/25 Hepatitis C Antibody, (Nonreactive) Non-reactive 04/20/25 Rubella IgG Antibody, (0.0-10.0) 13.1 IU/mL H 04/20/25 RPR, (Nonreactive) Nonreactive 04/20/25 HIV 1&2 Ab & HIV 1 Ag, (Non-Reactiv) Non-reactive 04/20/25 TSH, (0.27-4.20) 0.64 uIU/mL 04/20/25 Glucose 1 Hr 50 gm, (85-140) 104 mg/dL 08/12/25 HCG, Qual, (Negative) Positive H 03/05/25 Urine Opiates Screen, (Negative) Negative ng/mL 04/20/25 Ur Barbiturates Screen, (Negative) Negative ng/mL 04/20/25 Ur Phencyclidine Scrn, (Negative) Negative ng/mL 04/20/25 Ur Amphetamines Screen, (Negative) Negative ng/mL 04/20/25 U Benzodiazepines Scrn, (Negative) Negative ng/mL 04/20/25 Urine Cocaine Screen, (Negative) Negative ng/mL 04/20/25 U Marijuana (THC) Screen, (Negative) Positive ng/mL H 04/20/25 Micro Urine Specimen 10/05/25 Pap Smear Interpret See note 05/06/25 Discharge Plan Discharge Patient Disposition: Home Condition: Stable Prescriptions: New ibuprofen 800 mg Tablet 800 mg PO TID Qty: 60 0RF acetaminophen 325 mg Tablet 650 mg PO Q6H PRN (Reason: Mild Pain or Temp >100.4) Qty: 0 0RF ferrous sulfate 325 mg (65 mg iron) Tablet,Delayed Release (Dr/Ec) 325 mg PO BIDWM Qty: 0 0RF No Action No Known Home Medications Discharge Order = DC NOW: Discharge Order (Routine); Ordered 10/28/25 Ordered By: Barbi Aranda Discharge Diet: Regular Discharge Activity: Increase activity as tolerated Patient Instructions: Bleeding (DC), Opioid Safety (DC), Preeclampsia and Eclampsia After Delivery (GEN), Hemorrhage (DC), OB [facility], OB Discharge Report, OB Food/Drug Interaction Guide, Opioid Safety, OB Home Care, Patient Portal & Rhona Instructions, Abnormal Bleeding Discharge Attestations CERTIFIED PROSTHETIST Time Spent in Discharge Care*: less than 30 min Coding Level of Care Code Acute Code for Chg Fwd Diagnoses 39 weeks gestation of Z3A.39 Iron deficiency anemia D50.9 H/O: Z98.891 delivery delivered O82
[2025-10-28 11:03] VITALS: TEMP 36.6
[2025-10-28 11:04] VITALS: BP 119/58; PULSE 92
[2025-10-28 13:07] VITALS: BP 128/62; PULSE 94
[2025-10-28 13:17] VITALS: BP 128/62; PULSE 94; RESP 17; TEMP 36.8; O2SAT 98
[2025-10-28 14:29] LABS: High Risk PP Hemorrhage BBK Notified
== END 2025-10-28 13:17 | disposition home or self-care (01) | DRG 540 ==
LOC: OPOB 03:02 → OBGYN 03:02
PROVIDERS: Admitting Provider Obstetrics & Gynecology; Visit Provider Obstetrics & Gynecology
PROC: 10D00Z1 Extraction of Products of Conception, Low, Open Approach (ICD-10-PCS; CPT 59514; principal; 2025-10-27 07:00)
DX: O34.211 Maternal care for low transverse scar from previous cesarean delivery (principal); N85.8 Other specified noninflammatory disorders of uterus; O99.02 Anemia complicating childbirth; D64.9 Anemia, unspecified; Z3A.39 39 weeks gestation of pregnancy; Z37.0 Single live birth
CPT/HCPCS: 51702; 59025; 59409; 83986; 85025; 85027; 86850; 86900; 86920; 99211; J1200; J1885; J2274; J2765; J3010; J3490; J7030; J7120; J7121; J9999